=== PATIENT | female | born 1960 | race Caucasian/White ===

== ENCOUNTER 2025-01-17 16:05 | Outpatient (AMB) | payer MEDICARE, MEDICAID, SELFPAY ==
--- NOTE | 2025-01-17 16:16 | A.OFFVIS_ITS ---
Vital Signs 01/17/25 16:18 Height 5 ft 8.5 in Weight 203 lb 4.259 oz BMI 30.5 BP 136/84 Blood Pressure Location Lt brachial Position Sitting Pulse 68 Pulse Source Pulse Oximeter Pulse Oximetry (%) 98 Oxygen Delivery Method Room Air Intake Visit Reasons: Hypothyroidism Intake Note: Patient presents for hypothyroidism today. Continuity Tester Required: No Allergies codeine Allergy (Severe, Verified 01/17/25 16:27) Anaphylaxis metoclopramide (From Reglan) Adverse Reaction (Intermediate, Verified 01/17/25 16:27) Patient's hands stiffing up. Medication List - Last Reconciled 01/17/25 by Vladislav Diane MD acetylglucosamine (bulk) (a-zmctdt-ppedg-d-glucosamine powder) ea miscellaneous atorvastatin (Lipitor) 10 mg PO DAILY cholecalciferol (vitamin D3) 50 mcg PO DAILY escitalopram oxalate 10 mg PO DAILY levothyroxine (Euthyrox) 125 mcg PO DAILY magnesium oxide 400 mg PO DAILY meclizine 25 mg PO DAILY PRN multivitamin 1 tab PO DAILY oxybutynin chloride ER 15 mg PO DAILY propranolol 20 mg PO BID vitamin K2 90 mcg PO DAILY HPI Comments Details: This is a 64 yo female with hx of follicular ca of thyroid s/p thyroidectomy in 1998 and [address] DANIELS [address] Minaya at [facility] . Was on L-T4 from 150 ug to 125ug several yrs ago. Records from Dr. Minaya not available. No palpitations, weight is same. No change in BM. No biotin use. [facility] Medical History (Updated 01/17/25 @ 16:51 by Vladislav Diane MD) Thyroid cancer Abnormal thyroid blood test Surgical History (Updated 01/17/25 @ 16:37 by Audrey Oquendo CMA) H/O hand surgery History of lung surgery H/O hemorrhoidectomy H/O: hysterectomy H/O thyroidectomy Hx of tonsillectomy Social History (Updated 01/17/25 @ 16:31 by Audrey Oquendo CMA) Alcohol intake: former e-Cigarette/Vaping Use: Currently Using Physical Exam Vital Signs: Last Vital Signs Pulse 68 01/17/25 16:18 BP 136/84 01/17/25 16:18 Pulse Ox 98 01/17/25 16:18 Oxygen Delivery Method Room Air 01/17/25 16:18 BMI result Body Mass Index 30.5 HEENT reveals absence of lid lag , stare or proptosis or eyebrow loss. There is a healed scar in the next status post thyroidectomy There is no cervical adenopathy palpated. Lungs CTA. Heart S1, S2 Reg R/R -M/R/G. Abdominal exam benign. Skin exam reveals absence of dryness or thyroid dermopathy or vitiligo. Nail exam reveals absence of thyroid acropachy or oncholysis. Neurologic exam reveals 2+ reflexes . Muscle Strength is 5/5 proximally. There are no tremors in upper extremities. Assessment & Plan Assessment & Plan (1) Abnormal thyroid blood test: Code(s): R79.89 - Other specified abnormal findings of blood chemistry Category: Medical Plan: See assessment and plan below (2) Thyroid cancer: Code(s): C73 - Malignant neoplasm of thyroid gland Category: Medical Plan: This is a 64-year-old female with a reported history of follicular cancer of the thyroid status post total thyroidectomy in 1998 with 2 doses of radioactive iodine by patient's report. Currently being replaced on levothyroxine 125 mcg q.d.. Recent TSH was suppressed. We will recheck TSH, free T4 and free T3 along with thyroglobulin. If thyroglobulin is undetectable and neck ultrasound without abnormal lymph nodes, and TSH suppressed would back off levothyroxine to let TSH rise to mid normal range. We will also have patient see Dr. Massiel [place] convention services director in our practice with expertise in neck ultrasound to better assess lymph nodes. Orders: Orders Triiodothyronine T3 Free Today R79.89 - Other specified abnormal findings of blood chemistry Free T4 (Free Thyroxine) Today R79.89 - Other specified abnormal findings of blood chemistry Thyroid Stimulating Hormone Today R79.89 - Other specified abnormal findings of blood chemistry Thyroglobulin Tumor Marker Today C73 - Malignant neoplasm of thyroid gland Coding Level of Care Code New Pt Level 4 (32640) Diagnoses Abnormal thyroid blood test R79. Thyroid cancer C73
[2025-01-17 16:18] VITALS: BP 136/84; PULSE 68; O2SAT 98; BMI 30.5
--- OUTSIDE RECORDS SUMMARY | 2025-01-17 16:34 | XMS_ITS | Encounter Summary ---
Author Organization [facility], Address [address] [place] [address] Phone Care Team Providers Care Claims Collector Name Role Phone Lora Jacome DO Primary Care Provider [phone] Encounter Details Date Type Department Care Team (Late st Contact Info) Description 08/10/2023 Documentation Only [facility], [address] [place] [id number] [place] [address] [place] [address] Social History Tobacco Use Types Packs/Day Years Used Date Smoking Tobacco: Never Assessed Comments Unknown Sex and Gender Information Value Date Recorded Sex Assigned at Not on file Legal Sex Female 10:09 AM EDT Gender Identity Not on file Sexual Orientation Not on file documented as of this encounter Plan of Treatment Not on file documented as of this encounter Visit Diagnoses Not on filedocumented in this encounter Care Teams Claims Collector Relationship Specialty Start Date End Date Lora Jacome DO [address] [place] [address] PCP - General Family Medicine 08/10/23 09/28/23 documented as of this encounter
--- OUTSIDE RECORDS SUMMARY | 2025-01-17 16:35 | XMS_ITS | Encounter Summary ---
Author Organization [facility] Address [address] [place] [address] Care Team Providers Care Cnc Service Technician Name Role Phone Vladislav Duran MD Primary Care Provider [phone] Celeste Kaur MD Primary Care Provider [phone] Encounter Details Date Type Department Care Team (Late st Contact Info) Description 10/07/2016 Scanned Document [id number] [place] [address] Provider, Generic Social History Tobacco Use Types Packs/Day Years Used Date Smoking Tobacco: Every Day Cigarettes Comments:pt quit x2 weeks ag o - using E-Cigg. - has been instructed to stop prior to surgery Alcohol Use Standard Drinks/Week Comments Yes 0 (1 standard drink = 0.6 oz pur e alcohol) social Comments No Sex and Gender Information Value Date Recorded Sex Assigned at Female 06/14/2024 2:05 PM EST Legal Sex Female 10:40 AM EST Gender Identity Female 06/14/2024 2:05 PM EST Sexual Orientation Choose not to disclose 2024 2:05 PM EST documented as of this encounter Plan of Treatment Upcoming Encounters Date Type Department Care Team (Late st Contact Info) Description 02/15/2025 10:30 AM EDT Office Visit [facility] [address] [place] [phone] Khalida Muller PA-C [address] [place] [address] Kelvin Saab, PT [address] [place] [address] Jenna Jain Au.D [address] [place] [address] documented as of this encounter Procedures Procedure Name Priority Date/Time Associated Diagnosis Comments LAB RESULT 10/07/2016 documented in this encounter Results * LAB RESULT (10/07/2016) Narrative 10/07/2016 Ordered by an unspecified provider. us Generic Provider HX AMB PROCEDURES Edited Result - Final documented in this encounter Visit Diagnoses Not on filedocumented in this encounter Care Teams Cnc Service Technician Relationship Specialty Start Date End Date Vladislav Duran MD [address] [place] [address] [address] [place] [address] PCP - General Internal Medicine 03/30/16 06/18/24 Celeste Kaur MD [address] [place] [address] [address] [place] [address] PCP - General Internal Medicine 06/22/24 documented as of this encounter
--- OUTSIDE RECORDS SUMMARY | 2025-01-17 16:35 | XMS_ITS | Encounter Summary ---
Author Organization [facility] Address [address] [facility] [address] [place] [address] Phone Care Team Providers Care Pharmaceutical Analyst Name Role Phone Irvin Mcfadden MD Unavailable [phone] Adelita Jay [facility] Primary Care Provid er Encounter Details Date Type Department Care Team (Late st Contact Info) Description 04/03/2024 Prep for Surgery [facility] [address] [place] [address] Nannette Romero MD [address] [place] [address] Orthopedics & Sports Medicine, [facility] [place] [address] [email or web address] Social History Tobacco Use Types Packs/Day Years Used Date Smoking Tobacco: Former Cigarettes 0.5 19 - 2018 Passive Smoke Exposure: Past Smokeless Tobacco: Never Comments:Started age 38, carol t age 57. 1/2 PPD on average. Alcohol Use Standard Drinks/Week Comments Never 0 (1 standard drink = 0.6 oz pur e alcohol) Child or Family Care Answer Date Record ed Do you have problems with on e of the following making it difficult for you to work, study, or receive health care? No 12/29/2023 Education Answer Date Recorded Are you interested in help w ith more adult education (for example, completing high school, GED, job training, learning the British language, technical skills, or developing parenting skills)? No 12/29/2023 Are you concerned about learning? Not on file 12/29/2023 No 12/29/2023 Yes 12/29/2023 Food Answer Date Recorded Within the past 6 months we worried whether our food would run out before we got money to buy more. Never True 12/29/2023 Within the past 6 months the food we bought just didn't last and we didn't have enough money to get more. Never True Residential Stability Answer Date Recor ded What is your housing situation today? I have jarvis sing 12/29/2023 How many times have you move d in the past 12 months? Zero (I did not move) 12/29/2023 Paying for Meds Answer Date Recorded Do you have trouble paying for medicines? No 12/29/2023 Paying Utility Bills Answer Date Record ed Do you have trouble paying your heating or elect ricity bill? No 12/29/2023 Transportation Answer Date Recorded Has the lack of transportati on kept you from medical appointments or from getting medications? No 12/29/2023 Digital Access Answer Date Recorded No 12/29/2023 Yes 12/29/2023 Do you have reliable internet access at home? Ye s 12/29/2023 Do you have a device (e.g., phone, tablet, computer) with a working camera? Yes 12/29/2023 Intimate Partner Violence Answer Date R ecorded Are you denied basic needs s uch as food, clothing, or medical care? No 12/29/2023 In the past 12 months have y ou been in a relationship with a person who hurts, threatens, or tries to control you? No 12/29/2023 Are you denied basic needs s uch as food, clothing, or medical care? No 12/29/2023 In the past 12 months have y ou been in a relationship with a person who hurts, threatens, or tries to control you? No 12/29/2023 Comments No Sex and Gender Information Value Date Recorded Sex Assigned at Female 08/07/2023 1:40 PM EDT Legal Sex Female 9:16 AM EDT Gender Identity Female 08/07/2023 1:40 PM EDT Sexual Orientation Straight 08/07/2023 1: 40 PM EDT documented as of this encounter Plan of Treatment Upcoming Encounters Date Type Department Care Team (Late st Contact Info) Description 01/04/2026 8:00 AM EDT Office Visit [facility] [address] [place] [address] Dr [place]ARD [address] Adelita Jay CNP [address] [place] [address], [address] [place] [address] [email or web address] documented as of this encounter Visit Diagnoses Not on filedocumented in this encounter Additional Health Concerns Assessment Noted Time PHQ-9 Depression Total Score: 10 024 8:47 AM EDT PHQ-2 Depression Total Score: 4 12/29/19 24 8:47 AM EDT documented as of this encounter Care Teams Pharmaceutical Analyst Relationship Specialty Start Date End Date Adelita Jay CNP [address] [place], [place] [address], [place] [address] PCP - General Family Medicine 12/29/23 Irvin Mcfadden MD Insurance Assigned Provider Family Medicine 11/25/22 documented as of this encounter Additional Source Comments The information contained in this document represents components of the legal health record. It is not the complete legal health record.[facility]
--- OUTSIDE RECORDS SUMMARY | 2025-01-17 16:35 | XMS_ITS | Encounter Summary ---
Author Organization [facility] Address [address] [place] [address] [place] [address] Phone Care Team Providers Care Associate Product Manager Name Role Phone Lora Jacome DO Primary Care Provider [phone] Irvin Mcfadden MD Unavailable Adelita Jay [facility] Primary Care Provid er Encounter Details Date Type Department Care Team (Late st Contact Info) Description 08/07/2023 Procedure Pass [facility], Ct Scan - [facility] [address] [place] [address] Social History Tobacco Use Types Packs/Day Years Used Date Smoking Tobacco: Former Cigarettes Q uit: 2018 Smokeless Tobacco: Never Alcohol Use Standard Drinks/Week Comments Never 0 (1 standard drink = 0.6 oz pur e alcohol) Education Answer Date Recorded Are you interested in more education? Not on tatyana e 08/14/2022 Are you concerned about learning? Not on file 08/14/2022 No 08/14/2022 No 08/14/2022 Digital Access Answer Date Recorded No 09/14/2022 No 09/14/2022 Reliable internet access at home? Not on file 09/14/2022 Device with a working camera? Not on file Comments No Sex and Gender Information Value Date Recorded Sex Assigned at Female 08/07/2023 1:40 PM EDT Legal Sex Female 9:16 AM EDT Gender Identity Female 08/07/2023 1:40 PM EDT Sexual Orientation Straight 08/07/2023 1: 40 PM EDT documented as of this encounter Functional Status * Calculated C-SSRS Risk Score (Lifetime/Recent) Answer Date of Assessment Author No Risk Indicated 08/07/2023 1:39 PM EDT Crystal Benavides RN * [place] Suicide Severity Rating Scale (Screener/Recent Self-Report) Question Answer Date of Assessment Author 1. Wish to be (Past 1 Month) No 08/07/2023 1:39 PM EDT Ana Cristina Jenkins RN 2. Non-Specific Active Suicidal Thoughts (Past 1 Month) No 08/07/2023 1:39 PM EDT Ana Cristina Jenkins RN 6. Suicidal Behavior (Lifetime) No 08/07/2023 1:39 PM EDT Ana Cristina Jenkins RN documented as of this encounter Plan of Treatment Upcoming Encounters Date Type Department Care Team (Late st Contact Info) Description 01/04/2026 8:00 AM EDT Office Visit [facility] [address] [place] [address] [place] [address] Adelita Jay CNP [address] [place] [address], [address] [place] [address] [email or web address] documented as of this encounter Visit Diagnoses Not on filedocumented in this encounter Care Teams Associate Product Manager Relationship Specialty Start Date End Date Lora Jacome DO [address] [place] [address] mary PCP - General Family Medicine 04/14/22 12/28/23 Adelita Jay CNP [address] [place] [address] PCP - General Family Medicine 12/29/23 Irvin Mcfadden MD [address] [place] [address] [email or web address] Insurance Assigned Provider Family Medicine 11/25/22 documented as of this encounter Additional Source Comments The information contained in this document represents components of the legal health record. It is not the complete legal health record.[facility]
--- OUTSIDE RECORDS SUMMARY | 2025-01-17 16:35 | XMS_ITS | Encounter Summary ---
Author Organization [facility] Address [address] [facility] [address] [place] [address] Phone Care Team Providers Care Power Barker Operator Name Role Phone Irvin Mcfadden MD Unavailable [phone] Adelita Jay FUEL DISTRIBUTION SYSTEM OPERATOR Primary Care Provid er Encounter Details Date Type Department Care Team (Late st Contact Info) Description 12/29/2023 Procedure Pass [facility] [address] [place] [address] Social History Tobacco Use Types Packs/Day Years Used Date Smoking Tobacco: Former Cigarettes 0.5 19 1 - 2018 Passive Smoke Exposure: Past Smokeless [...] high school, GED, job training, learning the Andorran language, technical skills, or developing parenting skills)? [...] your housing situation today? I have jarvis landon 12/29/2023 How many times have you move [...] EDT Office Visit [facility] [address] [place] [address] [place] [address] Adelita Jay, MOLLY [address] [facility], [address] [place] [address] [email or web address] documented as of this encounter Visit Diagnoses Not on filedocumented in this encounter Additional Health Concerns Assessment Noted Time PHQ-9 Depression Total Score: 5 05/11/19 10:52 AM EST PHQ-2 Depression Total Score: 2 05/11/19 10:52 AM EST documented as of this encounter Care Teams Power Barker Operator Relationship Specialty Start Date End Date Adelita Jay CNP [address] [place] [address], [address] [place] [address] [email or web address] PCP - General Family Medicine 12/29/23 Irvin Mcfadden MD Insurance Assigned Provider Family Medicine 11/25/22 documented as of this encounter Additional Source Comments The information contained in this document represents components of the legal health record. It is not the complete legal health record.[facility]
--- OUTSIDE RECORDS SUMMARY | 2025-01-17 16:35 | XMS_ITS | Encounter Summary ---
Author Organization [facility] Address [address] [place] [address] Care Team Providers Care Financial Officer Name Role Phone Celeste Kaur MD Primary Care Provider Encounter Details Date Type Department Care Team (Late st Contact Info) Description 01/15/2025 Refill [facility] [address] [phone] Viji Mancilla APRN [address] [address] New daily persistent headache Social History Tobacco Use Types Packs/Day Years Used Date Smoking Tobacco: Former Cigarettes 0.5 10 1 04/29/2006 - 02/27/2017 Smokeless Tobacco: Never Comments:pt quit x2 weeks ag o - [...] PM EST documented as of this encounter Miscellaneous Notes * Telephone Encounter - Arielle Sosa MA - 01/15/2025 3:38 PM EDT I received a fax from [facility] asking for a refill for Magnesium oxide 400 mg Qty:30 one tab by mouth daily documented in this encounter Plan of Treatment Upcoming Encounters Date Type Department Care Team (Late st Contact Info) Description 02/15/2025 10:30 AM EDT Office Visit [facility] [address] [place] [address] Khalida Muller PAFacundoC [address] [place] [address] Kelvin Saab, PT [address] [place] [address] Jenna Jain Au.D [address] [place] [address] documented as of this encounter Visit Diagnoses Diagnosis New daily persistent headache documented in this encounter Care Teams Financial Officer Relationship Specialty Start Date End Date Celeste Kaur MD [address] [place] [address] Dr [address] [place] [address] PCP - General Internal Medicine 06/22/24 documented as of this encounter
--- OUTSIDE RECORDS SUMMARY | 2025-01-17 16:35 | XMS_ITS | Encounter Summary ---
Author Organization [facility] Address [address] [facility] [address] [place] [address] Phone Care Team Providers Care Service Station Equipment Mechanic Name Role Phone Lora Jacome Opal DO Primary Care Provider [phone] Irvin Mcfadden MD Unavailable Adelita Jay [facility] Primary Care Provid er Encounter Details Date Type Department Care Team (Latest Contact Info) Description 12/13/2023 Transcribe Orders Virtual Department [address] [place] [address] Rogelio Minaya MD [address] [place] [address] [email or web address] Osteopenia, unspecified location (Primary Dx) Social History Tobacco Use Types Packs/Day Years [...] Description 01/04/2026 8:00 AM EDT Office Visit [facility] [address] [place] [address] [place] [address] Adelita Jay CNP [address] [place] [address] [email or web address] documented as of this encounter Visit Diagnoses Diagnosis Osteopenia, unspecified location- Primary documented in this encounter Care Teams Service Station Equipment Mechanic Relationship Specialty Start Date End Date Lora Jacome DO [address] [place] [address] mary PCP - General Family Medicine 04/14/22 12/28/23 Adelita Jay CNP [address] [place] [address] PCP - General Family Medicine 12/29/23 Irvin Mcfadden MD [address] [place] [address] Insurance Assigned Provider Family Medicine 11/25/22 documented as of this encounter Additional Source Comments The information contained in this document represents components of the legal health record. It is not the complete legal health record.[facility]
--- OUTSIDE RECORDS SUMMARY | 2025-01-17 16:35 | XMS_ITS | Encounter Summary ---
Author Organization [facility] Address [address] [place] [address] Care Team Providers Care Combatant Diver Officer Name Role Phone Vladislav Duran MD Primary Care Provider [phone] Celeste Kaur MD Primary Care Provider [phone] Encounter Details Date Type Department Care Team (Late st Contact Info) Description 07/08/2017 Scanned Document [facility] [address] [place] [address] Roni Dugan MD [address] [place] [address] [place] [address] Social History Tobacco Use Types Packs/Day Years [...] EDT [facility] [address] [address] Khalida Muller PA-C [address] [place], [place] [address] Kelvin Saab, PT [address] [place] [address] Jenna Jain Au.D [address] [place], [place] [address] documented as of this encounter Visit Diagnoses Not on filedocumented in this encounter Care Teams Combatant Diver Officer Relationship Specialty Start Date End Date Vladislav Duran MD [address] [place] [address] [address] [place] [address] PCP - General Internal Medicine 03/30/16 06/18/24 Celeste Kaur MD [address] [place] [address] [address] [place] [address] PCP - General Internal Medicine 06/22/24 documented as of this encounter
--- OUTSIDE RECORDS SUMMARY | 2025-01-17 16:35 | XMS_ITS | Encounter Summary ---
Author Organization [facility] Address [address] [facility] [address] [place] [address] Phone Care Team Providers Care Color Specialist Name Role Phone Irvin Mcfadden MD Unavailable [phone] Adelita Jay NEWCOMER HOSTESS Primary Care Provid er Encounter Details Date Type Department Care Team (Late st Contact Info) Description 05/10/2024 Procedure Pass [address] [place] [address] Social History Tobacco Use Types Packs/Day Years [...] high school, GED, job training, learning the Faroese language, technical skills, or developing parenting skills)? [...] EDT Office Visit [facility] [address] [place] [address] [place] [address] Adelita Jay, MOLLY [address] [facility], [address]nd Floor HOWARD [place] [address] [email or web address] documented as of this encounter Visit Diagnoses Not on filedocumented in this encounter Additional Health Concerns Assessment Noted Time PHQ-9 Depression Total Score: 5 05/11/19 10:52 AM EST PHQ-2 Depression Total Score: 2 05/11/19 10:52 AM EST documented as of this encounter Care Teams Color Specialist Relationship Specialty Start Date End Date Adelita Jay CNP [address] [place] [address], [address] [place] [address] [email or web address] PCP - General Family Medicine 12/29/23 Irvin Mcfadden MD Insurance Assigned Provider Family Medicine 11/25/22 documented as of this encounter Additional Source Comments The information contained in this document represents components of the legal health record. It is not the complete legal health record.[facility]
--- OUTSIDE RECORDS SUMMARY | 2025-01-17 16:35 | XMS_ITS | Encounter Summary ---
Author Organization [facility] Address [address] [place] [address] Phone Care Team Providers Care Quirk Sander Name Role Phone Pcp, Unknown Primary Care Provider Carl Hastings MD Primary Care Provider [phone] Lora Jacome DO Primary Care Provider Lora Jacome DO Primary Care Provider [phone] Irvin Mcfadden MD Unavailable Adelita Jay [facility] Primary Care Provid er Encounter Details Date Type Department Care Team (Latest Contact Info) Description 10/24/2019 Transcribe Orders Virtual Department [address] [place] [address] Mary Alexis, PIE MAKER MACHINE 70 [place], [place] [phone] Sore throat (Primary Dx); Glands swollen; Otalgia, unspecified laterality; Diarrhea, unspecified type Social History Tobacco Use Types Packs/Day Years Used Date Smoking Tobacco: Every Day Comments Unknown Sex and Gender Information Value [...] Description 01/04/2026 8:00 AM EDT Office Visit [facility] [address] [place] [address] Adelita Jay, AMF MECHANIC 170 [facility], [address]nd [place] [address] [email or web address] documented as of this encounter Results * COVID-19 PCR Order (10/25/2019 10:30 AM EDT) Specimen Source NASOPHARYNGEAL SWAB (PIE MAKER MACHINE) [facility] COVID-19 Comment SWOLLEN GLANDS, EAR PAIN, DIARRHEA [facility] COVID Testing Status Sent to [facility] Micro Lab [facility] Other 10/25/2019 10:3 0 AM EDT 10/25/2019 12:11 PM EDT us Mary Alexis PIE MAKER MACHINE BODY FLUIDS AND STOOLS ORDERABL ES Final Result Performing Organization Address City/State/[facility] Co de Phone Number [facility] [address] [place] [address] documented in this encounter Visit Diagnoses Diagnosis Sore throat- Primary Acute pharyngitis Glands swollen Enlargement of lymph nodes Otalgia, unspecified laterality Diarrhea, unspecified type documented in this encounter Additional Health Concerns Infection Onset Date Last Indicated Resolved Time CoV-Risk 10/24/2019 10/25/2019 11/07/2019 1:24 AM EDT CoV-Risk 03/29/2020 03/30/2020 04/12/2020 1:24 AM EST documented as of this encounter Care Teams Quirk Sander Relationship Specialty Start Date End Date Pcp, Unknown PCP - General 10/25/19 03/28/20 Carl Jean MD [address] [place] [address] PCP - General Internal Medicine 04/28/21 11/04/21 Lora Jacome DO [address] [place] [address] [email or web address] PCP - General Family Medicine 11/05/21 04/13/22 Lora Jacome DO [address] [place] [address] [email or web address] PCP - General Family Medicine 04/14/22 12/28/23 Adelita Jay CNP [address] [place] [address], [address] [place] [address] [email or web address] PCP - General Family Medicine 12/29/23 Irvin Mcfadden MD [address] [place] [address] [email or web address] Insurance Assigned Provider Family Medicine 11/25/22 documented as of this encounter Additional Source Comments The information contained in this document represents components of the legal health record. It is not the complete legal health record.[facility]
--- OUTSIDE RECORDS SUMMARY | 2025-01-17 16:35 | XMS_ITS | Encounter Summary ---
Author Organization [facility] Address [address] [place] [address] Phone Care Team Providers Care Emanations Analysis Technician Name Role Phone Jacome Lora Opal RECIO Primary Care Provider Irvin Mcfadden MD Unavailable Adelita Jay [facility] Primary Care Provid er Encounter Details Date Type Department Care Team (Late st Contact Info) Description 12/17/2022 Prep for Surgery [facility] Orthopedics & Sports Medicine [address] [place] [address] [phone] Nannette Romero MD [address] [place] [address] Orthopedics & Sports Medicine, [facility] [place], [place] [phone] [email or web address] Social History Tobacco Use Types Packs/Day Years [...] Description 01/04/2026 8:00 AM EDT Office Visit [facility] [address] [place] [address] [place] [address] Adelita Jay CNP [address] [place] [address] documented as of this encounter Visit Diagnoses Not on filedocumented in this encounter Care Teams Emanations Analysis Technician Relationship Specialty Start Date End Date Lora Jacome DO [address] [place] [address] mary PCP - General Family Medicine 04/14/22 12/28/23 Adelita Jay CNP [address] [place] [address] PCP - General Family Medicine 12/29/23 Irvin Mcfadden MD [address] [place] [address] Insurance Assigned Provider Family Medicine 11/25/22 documented as of this encounter Additional Source Comments The information contained in this document represents components of the legal health record. It is not the complete legal health record.[facility]
--- OUTSIDE RECORDS SUMMARY | 2025-01-17 16:35 | XMS_ITS | Encounter Summary ---
Author Organization [facility] Address [address] [place] [address] Care Team Providers Care Journeyman Apprentice Electricians Name Role Phone Vladislav Duran MD Primary Care Provider [phone] Celeste Kaur MD Primary Care Provider [phone] Encounter Details Date Type Department Care Team (Late st Contact Info) Description 07/09/2017 Scanned Document [facility] [address] [place] [phone] Roni Dugan MD [address] [place] [address] [place] [address] Social History Tobacco Use Types Packs/Day Years [...] EDT Office Visit [facility] [address] [place] [phone] Khalida Muller PA-C [address] [place], [place] [phone] Kelvin Saab, PT [address] [place] [address] Jenna Jain Au.D 40 [place], [place] 084[address] documented as of this encounter Visit Diagnoses Not on filedocumented in this encounter Care Teams Journeyman Apprentice Electricians Relationship Specialty Start Date End Date Vladislav Duran MD [address] [place] [address] [address] [place] [address] PCP - General Internal Medicine 03/30/16 06/18/24 Celeste Kaur MD [address] [place] [address] [address] [place] [address] PCP - General Internal Medicine 06/22/24 documented as of this encounter
--- OUTSIDE RECORDS SUMMARY | 2025-01-17 16:35 | XMS_ITS | Encounter Summary ---
Author Organization [facility] Address [address] [place] [address] Care Team Providers Care Manager Stone Name Role Phone Vladislav Duran MD Primary Care Provider [phone] Celeste Kaur MD Primary Care Provider [phone] Encounter Details Date Type Department Care Team (Late st Contact Info) Description 09/08/2017 Scanned Document [facility] [place] [address]9554 [place] [address] Provider, Generic Social History Tobacco Use Types [...] EDT Office Visit [facility] [address] [place] [phone] Khalida Muller PA-C [address] [place] [address] Kelvin Saab, PT [address] [place] [address] Jenna Jain Au.D [address] [place] [address] documented as of this encounter Procedures Procedure Name Priority Date/Time Associated Diagnosis Comments LAB RESULT 09/08/2017 documented in this encounter Results * LAB RESULT (09/08/2017) Narrative 09/08/2017 Ordered by an unspecified provider. us Generic Provider HX AMB PROCEDURES Edited Result - Final documented in this encounter Visit Diagnoses Not on filedocumented in this encounter Care Teams Manager Stone Relationship Specialty Start Date End Date Vladislav Duran MD [address] [facility] [address] [place] [address] PCP - General Internal Medicine 03/30/16 06/18/24 Celeste Kaur MD [address] [place] [address] Dr [address] [place] [address] PCP - General Internal Medicine 06/22/24 documented as of this encounter
--- OUTSIDE RECORDS SUMMARY | 2025-01-17 16:35 | XMS_ITS | Encounter Summary ---
Author Organization [facility] Address [address] [place] [address] Care Team Providers Care Senior Asp Net Developer Name Role Phone Vladislav Duran MD Primary Care Provider [phone] Celeste Kaur MD Primary Care Provider [phone] Encounter Details Date Type Department Care Team (Late st Contact Info) Description 05/24/2017 Scanned Document [facility] 100 [facility] [address] [place] [phone] Alyse Franks, PA-C [address] [place] [address] Social History Tobacco Use Types Packs/Day Years [...] EDT Office Visit [facility] [address] [address] Khalida Muller PA-C [address] [place], [place] 1914[address] Kelvin Saab, PT [address] [place] [address] Jenna Jain Au.D 40 [place], [place] [address] documented as of this encounter Visit Diagnoses Not on filedocumented in this encounter Care Teams Senior Asp Net Developer Relationship Specialty Start Date End Date Vladislav Duran MD [address] [place] [address] [address] [place] [address] PCP - General Internal Medicine 03/30/16 06/18/24 Celeste Kaur MD [address] [place] [address] [address] [place] [address] PCP - General Internal Medicine 06/22/24 documented as of this encounter
--- OUTSIDE RECORDS SUMMARY | 2025-01-17 16:35 | XMS_ITS | Encounter Summary ---
Author Organization [facility] Address [address] [place] [address] Phone Care Team Providers Care Denture Laboratory Technician Name Role Phone Carl Jean MD Primary Care Provider [phone] Lora Jacome DO Primary Care Provider Lora Jacome DO Primary Care Provider Irvin Mcfadden MD Unavailable [phone] Adelita Jay [facility] Primary Care Provid er Encounter Details Date Type Department Care Team (Late st Contact Info) Description 10/02/2021 Prep for Surgery [facility] Orthopedics & Sports Medicine [address] [place] [address] Nannette Romero MD [address] [place] [address] Orthopedics & Sports Medicine, [facility] [place] [address] Social History Tobacco Use Types Packs/Day Years Used Date Smoking Tobacco: Former Cigarettes Q uit: 2018 Smokeless Tobacco: Never Alcohol Use Standard Drinks/Week Comments Yes 0 (1 standard drink = 0.6 oz pur e alcohol) Comments Unknown Sex and Gender Information Value [...] EDT Office Visit [facility] [address] [place] [address] [place] [address] Adelita Jay CNP [address] [place] [address], [address] [place] [address] documented as of this encounter Visit Diagnoses Not on filedocumented in this encounter Care Teams Denture Laboratory Technician Relationship Specialty Start Date End Date Carl Jean MD [address] [place] [address] PCP - General Internal Medicine 04/28/21 11/04/21 Lora Jacome DO [address] [place] [address] mary PCP - General Family Medicine 11/05/21 04/13/22 Lora Jacome DO [address] [place] [address] mary PCP - General Family Medicine 04/14/22 12/28/23 Adelita Jay CNP [address] [place] [address] PCP - General Family Medicine 12/29/23 Irvin Mcfadden MD [address] [place] [address] Insurance Assigned Provider Family Medicine 11/25/22 documented as of this encounter Additional Source Comments The information contained in this document represents components of the legal health record. It is not the complete legal health record.[facility]
--- OUTSIDE RECORDS SUMMARY | 2025-01-17 16:35 | XMS_ITS | Clinical Summary ---
Author Organization [facility] Address [address] [place] [address] Care Team Providers Care Exterior Door Installer Name Role Phone Celeste Kaur MD Primary Care Provider [phone] Allergies Active Allergy Reactions Criticality Noted Date Comments Codeine Anaphylaxis High 03/31/2016 Pt unsure if still allergic Hydrocodone-Acetaminophe n Itching,Rash/Dermatit is High 04/17/2011 Metoclopramide Other (See Comments) Medium 01/11/2015 Lost hand movement Omeprazole Other (See Comments) Medium 07/17/2011 omeprazole Medications atorvastatin (LIPITOR) 40 MG tablet Take 1 tablet (40 mg total) by mouth daily. 6 Active buPROPion (WELLBUTRIN XL) 150 MG 24 hr tablet Take 1 tablet (150 mg total) by mouth every morning. 6 Active Cholecalciferol (VITAMIN D3) 5000 UNITS Cap Take 1,000 Units by mouth daily. Active Multiple Vitamin tablet Take by mouth. Active lisinopril (PRINIVIL,ZeSTRI L) 10 MG tablet Take 1.5 tablets (15 mg total) by mouth daily. 6 Active levothyroxine (SYNTHROID, LEVOTHROID) 150 MCG tablet Take 1 tablet (150 mcg total) by mouth daily on an empty stomach. 6 Active Biotin 3 MG Tab Take 1 tablet by mouth daily. Active darifenacin (ENABLEX) 15 MG 24 hr tablet Take 1 tablet (15 mg total) by mouth daily. Do not chew, crush, or split tablet. Active PANTOprazole (PROTONIX) 40 MG EC tablet 7 Active escitalopram (LEXAPRO) 20 MG tablet Take 0.5 tablets (10 mg total) by mouth daily. 3 7 Active oxyCODONE (ROXICODONE) 5 MG immediate release tabletIndication s:SI (sacroiliac) joint dysfunction Take 1 tablet (5 mg total) by mouth 3 times daily (every 8 hours) as needed for moderate pain. Max Daily Amount: 15 mg 30 tablet 8 Active atorvastatin (LIPITOR) 40 MG tablet Take 1 tablet (40 mg total) by mouth. 4 Active oxybutynin (DITROPAN XL) 15 MG 24 hr tablet Take 1 tablet (15 mg total) by mouth. Active propranolol (INDERAL) 20 MG tablet Take 1 tablet (20 mg total) by mouth 2 times a day. 5 Active magnesium oxide 400 (240 Mg) MG Tab tabletIndication s:New daily persistent headache Take 1 tablet (400 mg total) by mouth daily. 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/19/2024 SI (sacroiliac) joint dysfunction 03/30/2017 Thyroid cancer 03/31/2016 Sacroiliac sprain Encounters Date Type Department Care Team Description 01/15/2025 [facility] [address] [place] [phone] Viji Mancilla APRN New daily persistent headache 01/12/2025 Travel from Last 3 Months Family History Medical History Relation Name Comments POPEYE disease Brother Hypertension Brother Cancer Father Stroke Mother Dementia Sister 1 Hyperlipidemia Sister 2 Relation Name Status Comments Brother Alive Father Mother Sister 1 Sister 2 Alive Social History Tobacco Use Types Packs/Day Years Used Date Smoking Tobacco: Former Cigarettes 0.5 10 1 04/29/2006 - 02/27/2017 Smokeless Tobacco: Never Tobacco Cessation:Counseling Given: Not Answered Comments:pt quit x2 weeks ago - using E-Cigg. - has been instructed [...] not to disclose 2024 2:05 PM EST Last Filed Vital Signs Vital Sign Reading Time Taken Comments Blood Pressure 135/85 06/19/2024 12:15 PM EST Pulse 54 06/19/2024 12:15 PM EST Temperature 36.7 C (98 F) 07/14/2017 10:29 PM EDT Respiratory Rate 18 03/30/2017 1:18 PM EST Oxygen Saturation 93% 03/30/2017 1:18 PM EST Inhaled Oxygen Concentration - - Weight 89.9 kg (198 lb 1.6 oz) 06/19/2024 12:15 PM EST Height 172.7 cm (5' 8 ) 06/19/2024 12:15 PM EST Body Mass Index 30.12 06/19/2024 12:15 PM EST Plan of Treatment Upcoming Encounters Date Type Department Care Team (Late st Contact Info) Description 02/15/2025 10:30 AM EDT Office Visit [facility] [address] [place] [address] Khalida Muller PA-C 40 [place] [address] Kelvin Saab, PT [address] [place] [address] Jenna Jain Au.D [address] [place] [address] Health Maintenance Due Date Last Done Comments Advance Care Planning 1960 Hepatitis C Virus Screening 1958 COVID-19 Vaccine (#1) 1963 DTaP/Tdap/Td Vaccines (1 - Tdap) 1977 Pneumococcal Vaccines 50+ (1 of 2 - PCV) 1977 Zoster (Shingles) Vaccine (1 of 2) 1977 Mammogram 1998 Colonoscopy 2003 RSV Vaccine 60 years and older and Patients (1 - Risk 60-74 years 1-dose series) 2018 DXA Bone Density (Females,Ages 65 and older) 2023 Influenza Vaccine 11/17/2024 01/31/2021, , 02/09/2019, Additional history exists Hepatitis B Vaccines Aged Out No long er eligible based on patient's age to complete this topic Medical Devices Implanted Type Area Sampler First Device Identifier Shelf Expiration Date Model / Serial / Lot System Spinal Fixation 70mm 7mm Ifuse Implant System 3ang - [id number] Implanted:Qty: 1 on 03/30/2017 by Roni Dugna MD at [facility] [employer] 11/16/2018 7070-90 / / System Spinal Fixation 50mm 7mm Ifuse Implant System 3ang - [id number] Implanted:Qty: 1 on 03/30/2017 by Roni Dugan MD at [facility] [employer] [employer] 07/15/2021 [id number] / / System Spinal Fixation 40mm 7mm Ifuse Implant System 3ang - [id number] Implanted:Qty: 1 on 03/30/2017 by Roni Dugan MD at [facility] [employer] 05/01/2021 7040-90 / / [id number] Explanted Type Area Sampler First Device Identifier Shelf Expiration Date Model / Serial / Lot Pin Fixation 3.2mm Guide - [id number] Explanted:Qty: 3 on 03/30/2017 at [facility] [employer] [id number] / / Pin Fixation 3.2mm Blunt - [id number] Explanted:Qty: 1 on 03/30/2017 at [facility] [employer] [id number] / / Pin Fixation 3.2mm Exch - [id number] Explanted:Qty: 1 on 03/30/2017 at [facility] [employer] [id number] / / Insurance MEDICARE PART A & B [facility] [employer] MED[employer] Member Subscriber Plan / Payer (Ef fective 2024-Present) Name:Dior Smith Relation to Subscriber:Self Name:Dior Smith Payer ID:[id number] (NAIC) Type:Not on file Address: [address] [employer] MEDICARE , [address] [place] [address] Advance Directives * Full Code (Latest Code Status on File) Date Activated Date Inactivated Comments 03/30/2017 10:26 AM Care Teams Exterior Door Installer Relationship Specialty Start Date End Date Celeste Kaur MD [address] [place] [address] Dr [address] [place] [address] PCP - General Internal Medicine 06/22/24
--- OUTSIDE RECORDS SUMMARY | 2025-01-17 16:35 | XMS_ITS | Clinical Summary ---
Author Organization [facility] Address [address] [place] [address] Care Team Providers Care Manager Event Name Role Phone Vladislav Duran MD Primary Care Provider [phone] Allergies Active Allergy Reactions Criticality Noted Date Comments Codeine Anaphylaxis High 01/21/2016 Medications Medication Sig Dispensed Refills Start Date End Date Status atorvastatin (LIPITOR) tablet 40 mg Take 40 mg by mouth every night at bedtime. 0 11/18/2015 Active citalopram (CELEXA) 40 MG tablet Take 40 mg by mouth daily. 0 10/14/2015 Active levothyroxine (SYNTHROID, LEVOXY) tablet 175 mcg Take 150 mcg by mouth daily. 0 11/02/2015 Active lisinopril (PRINIVIL,ZESTRIL) tablet 10 mg Take 10 mg by mouth daily. 0 11/02/2015 Active pantoprazole (PROTONIX) 40 MG tablet Take 40 mg by mouth daily. 0 10/18/2015 Active tolterodine (DETROL LA) 4 MG 24 hr capsule Take 4 mg by mouth every night at bedtime. 0 10/17/2015 Active acetaminophen (TYLENOL) 500 MG tablet Take 1,000 mg by mouth every 6 (six) hours as needed. 0 Active diclofenac (VOLTAREN) 75 MG EC tablet Take 75 mg by mouth 2 (two) times a day. 0 Active Multiple Vitamin (MULTI VITAMIN DAILY PO) Take 1 tablet by mouth daily. 0 Active Cholecalciferol (VITAMIN D3) 5000 UNITS CAPS Take 1 capsule by mouth daily. Wednesday thru Wednesday 0 Active Lupton-3 Fatty Acids (FISH OIL PO) Take 1 capsule by mouth daily. 0 Active oxyCODONE-acetaminoph en (PERCOCET) 5-325 MG per tablet Take 1 tablet by mouth every 8 (eight) hours as needed for pain. 20 tablet 0 01/23/2016 Active buPROPion (WELLBUTRIN XL) 150 MG 24 hr tablet Take 150 mg by mouth daily. 0 02/24/2016 Active cyclobenzaprine (FLEXERIL) 10 MG tablet 0 03/13/2016 Active Active Problems No known active problems Family History Medical History Relation Name Comments Cancer Father lung cancer Hyperlipidemia Mother Hypertension Mother Kidney disease Mother Stroke Mother Relation Name Status Comments Father Mother Social History Tobacco Use Types Packs/Day Years Used Date Smoking Tobacco: Every Day Cigarettes 0.5 10 Smokeless Tobacco: Never Alcohol Use Standard Drinks/Week Comments Yes 1 (1 standard drink = 0.6 oz pur e alcohol) socially Sex and Gender Information Value Date Recorded Sex Assigned at Not on file Gender Identity Not on file Sexual Orientation Not on file Last Filed Vital Signs Vital Sign Reading Time Taken Comments Blood Pressure 149/102 03/19/2016 8:10 AM EST Pulse 92 03/19/2016 9:25 AM EST Temperature 36.9 C (98.4 F) 03/19/2016 8:10 AM EST Respiratory Rate 12 03/19/2016 9:25 AM EST Oxygen Saturation 100% 03/19/2016 9:25 AM EST Inhaled Oxygen Concentration - - Weight 97.1 kg (214 lb) 03/19/2016 8:10 AM EST Height 175.3 cm (5' 9 ) 03/19/2016 8:10 AM EST Body Mass Index 31.6 03/19/2016 8:10 AM EST Plan of Treatment Health Maintenance Due Date Last Done Comments Hepatitis C Screening 1960 COVID-19 Vaccine (#1) 1958 Pneumococcal Vaccine (1 of 2 - PCV) 1964 Depression Screening 1970 Preventative Health Evaluation 1976 DTap / Tdap / Td (1 - Tdap) 1977 Colon Cancer Screening (Colonoscopy) 2003 Breast Cancer Screening (Mammogram) 2008 Shingrix-Zoster Vaccine (1 of 2) 2008 Fall Risk Assessment 2023 Osteoporosis Screening (DEXA Scan) 2023 Influenza Vaccine (#1) 2024 RSV Adult > 60+ Yrs or Pregn ant (1 - 1-dose 75+ series) 2033 Hepatitis B Vaccines Aged Out No long er eligible based on patient's age to complete this topic RSV Ped < 20 months Aged Out No longe r eligible based on patient's age to complete this topic Care Teams Manager Event Relationship Specialty Start Date End Date Vladislav Duran MD PCP - General Internal Medicine 01/22/16
--- OUTSIDE RECORDS SUMMARY | 2025-01-17 16:35 | XMS_ITS | Encounter Summary ---
Author Organization [facility] Address [address] [place] [address] [place] [address] Phone Care Team Providers Care Improvement Engineer Name Role Phone Lora Jacome DO Primary Care Provider [phone] Irvin Mcfadden MD Unavailable Adelita Jay [facility] Primary Care Provid er Encounter Details Date Type Department Care Team (Late st Contact Info) Description 01/29/2023 Procedure Pass OR Admitting Dept - Virtual Department [address] [place] [address] Social History Tobacco Use Types Packs/Day Years [...] EDT Office Visit [facility] [address] [place] [address] [place] [address] Adelita Jay CNP [address] [place] [address], [address] [place] [address] documented as of this encounter Visit Diagnoses Not on filedocumented in this encounter Care Teams Improvement Engineer Relationship Specialty Start Date End Date Lora Jacome DO [address] [place] [address] mary PCP - General Family Medicine 04/14/22 12/28/23 Adelita Jay CNP [address] [place] [address] PCP - General Family Medicine 12/29/23 Irvin Mcfadden MD [address] [place] [address] Insurance Assigned Provider Family Medicine 11/25/22 documented as of this encounter Additional Source Comments The information contained in this document represents components of the legal health record. It is not the complete legal health record.[facility]
--- OUTSIDE RECORDS SUMMARY | 2025-01-17 16:35 | XMS_ITS | Encounter Summary ---
Author Organization Located Within [facility] Address [address] [place] [id number] Phone Care Team Providers Care Lifestyle Coordinator Name Role Phone Lora Jacome DO Primary Care Provider [phone] Lora Jacome DO Primary Care Provider [phone] Irvin Mcfadden MD Unavailable [phone] Adelita Jay CNP Primary Care Provid er Encounter Details Date Type Department Care Team (Late st Contact Info) Description 11/19/2021 Procedure Pass OR Admitting Dept - Virtual Department [address] [place] [id number] Social History Tobacco Use Types Packs/Day Years Used Date Smoking Tobacco: Former Cigarettes Q uit: 2018 Smokeless Tobacco: Never Alcohol Use Standard Drinks/Week Comments Never 0 (1 standard drink = 0.6 oz pur e alcohol) Comments No Sex and Gender Information Value [...] EDT Office Visit [facility] [address] [place] [address] [place] [address] Adelita Jay CNP [address] [facility], [address] [place] [phone] [email or web address] documented as of this encounter Visit Diagnoses Not on filedocumented in this encounter Care Teams Lifestyle Coordinator Relationship Specialty Start Date End Date Lora Jacome DO mary PCP - General Family Medicine 11/05/21 04/13/22 Lora Jacome DO [address] [place] [address] mary PCP - General Family Medicine 04/14/22 12/28/23 Adelita Jay CNP 170 [facility], [address] [place] [phone] PCP - General Family Medicine 12/29/23 Irvin Mcfadden MD [address] [place] [phone] [email or web address] Insurance Assigned Provider Family Medicine 11/25/22 documented as of this encounter Additional Source Comments The information contained in this document represents components of the legal health record. It is not the complete legal health record.Located Within [facility]
--- OUTSIDE RECORDS SUMMARY | 2025-01-17 16:35 | XMS_ITS | Clinical Summary ---
Author Organization [facility] Address [address] [place] [address] Care Team Providers Care Lead Advisor Name Role Phone Janis Parr Primary Care Provider [phone] Allergies Active Allergy Reactions Criticality Noted Date Comments Acetaminophen Maculopapular Rash High 04/13/2008 Codeine Anaphylaxis Medium 04/13/2008 CODEINE CAMSYL Hydrocodone-Acetaminophe n Pruritus (itching) High 04/17/2011 Metoclopramide Other High 04/13/2008 METOCLOPRAMIDE RESIN: Intolerance; Imobility of hands Active Problems Problem Noted Date Diagnosed Date High cholesterol 04/25/2013 Thyroid cancer 04/25/2013 Family History Medical History Relation Name Comments Other Mother Macular Edema/C ataracts Relation Name Status Comments Mother Social History Tobacco Use Types Packs/Day Years Used Date Smoking Tobacco: Every Day Cigarettes 0.5 10 Smokeless Tobacco: Never Alcohol Use Standard Drinks/Week Comments Yes 0 (1 standard drink = 0.6 oz pur e alcohol) Social Comments Unknown Sex and Gender Information Value Date Recorded Sex Assigned at Not on file Legal Sex Female 10:25 PM EDT Gender Identity Not on file Sexual Orientation Not on file Plan of Treatment Health Maintenance Due Date Last Done Comments Hepatitis C Screening 1960 DTaP/Tdap/Td (1 - Tdap) 1976 Mammogram/Breast Imaging 1998 Pneumococcal 50+ years (1 of 1 - PCV) 2008 Zoster (Shingrix) (1 of 2) 2008 Bone Density 2023 COVID-19 Vaccine ( - 2023-2 5 season) 2024 Influenza (#1) 2024 RSV (1 - 1-dose 75+ series) 2033 HPV Vaccine (No Doses Required) Completed Hep A Aged Out No longer eligi ble based on patient's age to complete this topic Hep B Aged Out No longer eligi ble based on patient's age to complete this topic Hib Aged Out No longer eligi ble based on patient's age to complete this topic Meningococcal ACWY Aged Out No longer eligible based on patient's age to complete this topic Pap Smear Discontinued Zoster (Zostavax) Discontinued Insurance [facility] HMO/HMO ADVANTAGE [employer] ACCESS Care Teams Lead Advisor Relationship Specialty Start Date End Date Janis Parr [facility] [address] [place] [address] PCP - General 05/29/14
--- OUTSIDE RECORDS SUMMARY | 2025-01-17 16:35 | XMS_ITS | Clinical Summary ---
Author Organization [facility] Address [address] [address] Phone Care Team Providers Care Pond Sawyer Name Role Phone Irvin Mcfadden MD Unavailable Adelita Jung [facility] Primary Care Provid er Allergies Active Allergy Reactions Criticality Noted Date Comments Codeine Anaphylaxis High 09/16/2007 Hydrocodone-Acetaminophen Itching,Rash,Unknown High 04/17/2011 Metoclopramide Myalgia Low 04/13/2008 Omeprazole Paresthesia Medium 07/17/2011 Reglan (Metoclopramide Hcl) Paralysis High 06/16/19 25 Reglan Medications levothyroxine (SYNTHROID, LEVOTHROID) 125 MCG tabletIndications :Postoperative hypothyroidism Take 1 tablet (125 mcg total) by mouth every morning. 90 tablet 3 025 Active magnesium oxide (MAG-OX) 400 mg (241.3 mg elemental) tablet TAKE 1 TABLET BY MOUTH DAILY. TAKE 2 HOURS APART FROM OTHER MEDICATIONS TAKE WITH FOOD 025 Active escitalopram oxalate (LEXAPRO) 10 MG tabletIndications :Generalized anxiety disorder TAKE 1 TABLET BY MOUTH EVERY DAY 90 tablet 1 025 Active oxyBUTYnin (DITROPAN XL) 15 MG 24 hr tablet Take 1 tablet (15 mg total) by mouth every morning. 90 tablet 3 025 Active atorvastatin (LIPITOR) 40 MG tabletIndications :High cholesterol TAKE 1 TABLET BY MOUTH NIGHTLY AT BEDTIME 90 tablet 3 025 Active meclizine (ANTIVERT) 50 MG tabletIndications :Vertigo Take 1 tablet (50 mg total) by mouth 2 (two) times a day as needed for dizziness. 30 tablet 3 025 Active propranoloL (INDERAL) 20 MG immediate release tabletIndications :Benign essential hypertension TAKE 1 TABLET BY MOUTH TWICE A DAY 180 tablet 1 025 Active suvorexant (BELSOMRA) 10 mg tabletIndications :Psychophysiologi xavi insomnia Take 1 tablet (10 mg total) by mouth nightly at bedtime as needed for insomnia. Take within 30 minutes of going to bed. 12 tablet 024 2024 Discontinued(N o longer taking) propranoloL (INDERAL) 20 MG immediate release tabletIndications :Benign essential hypertension TAKE 1 TABLET BY MOUTH TWICE A DAY 180 tablet 1 025 2024 Discontinued darifenacin (ENABLEX) 15 mg 24 hr tablet Take 15 mg by mouth daily. 2024 Discontinued(N o longer taking) meclizine (ANTIVERT) 25 mg tabletIndications :Vertigo Take 1-2 tablets (25-50 mg total) by mouth 3 (three) times a day as needed for dizziness. Do not exceed 4 tabs (100 mg) in 24 hours. 30 tablet 3 025 2024 Discontinued(R eorder) Active Problems Problem Noted Date Diagnosed Date Small vessel disease, cerebrovascular 06/16/2024 Assessment & Plan (07/02/2024 1:55 PM EDT): Recent brain MRI showed signs of chronic small vessel disease, no signs of stroke or mass. This is not likely related to her recent headaches but may affect her cognition or memory [facility] and may suggest a higher risk for TIA/CVA. - Discussed risk reduction strategies including the importance of good BP control, statin tx/cholesterol management and lifestyle modification. - Antithrombotic therapy/daily aspirin should be considered but would hold off for now given current concerns re: retinal microhemorrhages. Benign essential hypertension 06/16/2024 Assessment & Plan (11/19/2024 12:01 PM EDT): Stable, BP near goal <130/80. Continues on low dose propranolol re: headache prophylaxis and anxiety. Additional antihypertensive tx may be considered if SBP remains >130 given cerebral small vessel disease. BP is likely to improve with nicotine cessation. Assessment & Plan (07/02/2024 1:59 PM EDT): She reports a history of HTN, controlled with diet and lifestyle efforts only. BP has been at goal <140/90, generally in the 130's/80's in office and at home. - She will continue monitoring her blood pressure periodically. - More aggressive BP control <130/80 may be considered, given retinal micro-hemorrhages and cerebral small vessel disease. She will follow-up with the retinal specialist as scheduled. - Plan for trial of BB re: headaches, see below. If needed, other blood pressure medication may be considered in the future. Retinal hemorrhage of both eyes 06/16/2024 Assessment & Plan (07/02/2024 2:05 PM EDT): The patient has been diagnosed with retinal microhemorrhages, likely related to small vessel disease, possibly related to BP elevations. - She will follow up with the retinal specialist on 08/04/2024. - The potential impact of her condition on her headaches and the use of aspirin was discussed. - She is advised to avoid aspirin until after her appointment with the retinal specialist. Trigger thumb of right hand 05/24/2024 New daily persistent headache 05/02/2024 Assessment & Plan (11/19/2024 12:05 PM EDT): Headaches are much improved. Continues on propranolol and magnesium supplement recently recommended by neurology. Assessment & Plan (07/02/2024 2:02 PM EDT): The headaches are persistent and may have features similar to migraines, including unilateral distribution, and sensitivity to light and sound. The possibility of a vestibular migraine was also considered. - A prescription for propranolol 20 mg twice daily has been provided to help manage her headaches. She is advised to monitor for dizziness and fatigue, especially when standing up. - She will start the medication today and follow up with the neurologist on Wednesday. Hypothyroidism 12/29/2023 Assessment & Plan (11/19/2024 11:58 AM EDT): S/p total thyroidectomy and DANIELS tx. Takes 125mcg levothyroxine daily, clinically euthyroid. TSH has been WNL, due for annual monitoring. Assessment & Plan (12/29/2023 10:20 AM EDT): S/p total thyroidectomy and DANIELS tx. Takes 125mcg levothyroxine daily, clinically euthyroid. Her last TSH test was about a year ago per her report. Updated lab ordered to assess current levels. Kidney cysts 12/29/2023 Assessment & Plan (12/29/2023 10:23 AM EDT): She has benign kidney cysts on her right kidney. She was seen by nephrology (Dr Rosas) earlier this year and no treatment or follow-up was deemed necessary, specialty note reviewed. Major depressive disorder 12/29/2023 Assessment & Plan (12/29/2023 10:22 AM EDT): Recurrent mild-moderate depression, current sx mild per screening PHQ9 02/12, exacerbated by recent stressors. No safety concerns at present, denies SI/HI. She is advised to consider counseling and has been given resources to find a therapist. Vertigo 12/29/2023 Assessment & Plan (11/19/2024 11:55 AM EDT): Recent episode of BPPV, similar to previous. Continues with meclizine PRN, although not very helpful recently. Continue home exercises and other self care. Assessment & Plan (12/29/2023 10:20 AM EDT): She reports experiencing vertigo, especially during certain exercises. Meclizine has been prescribed as needed. I advised against horseback riding, driving, bathing or swimming alone, or climbing/working at heights or with hazardous materials while symptomatic. Insomnia 12/29/2023 Assessment & Plan (01/07/2024 2:36 PM EDT): She is advised to continue with her current medication. Should the current medication prove ineffective, alternative options can be explored. Assessment & Plan (12/29/2023 10:17 AM EDT): She reports difficulty falling and staying asleep. This is not usually a problem for her so daily medication is not warranted. Belsomra has been prescribed, selected due to her insurance formulary, to be taken 20 to 30 minutes before bedtime. She is advised to ensure a minimum of 7 hours of sleep post-medication and to avoid alcohol consumption. Potential side effects, including abnormal sleep behavior and dreams, have been discussed. If symptoms persist, she should follow up. Osteopenia of left hip 12/29/2023 Assessment & Plan (12/29/2023 10:26 AM EDT): Endorses a history of osteopenia in the left hip, previous DEXA report unavailable. Continues with good dietary intake of calcium and weightbearing activity. Had scheduled an updated scan but did not follow-through, new order placed. Hand eczema 12/29/2023 Assessment & Plan (12/29/2023 10:24 AM EDT): She exhibits symptoms of dyshidrotic eczema on her hands, discussed chronic nature and management.She should avoid potential triggers such as:cold or dry environments, rapid temperature changes, exposure to soaps/detergents/cosmetics/wool or synthetic fibers, dust or smoke, and sweating. Recommend wearing gloves when washing dishes or hands otherwise in water. A prescription for a high-intensity topical steroid cream has been provided, to be used during flare-ups not to exceed 2 weeks of continuous use. She is advised to use regular non-medicated moisturizer for maintenance. Vaginitis, atrophic 03/18/2015 SI (sacroiliac) joint dysfunction 01/11/2015 Overview (12/29/2023): S/p SI fusion on the left. Lumbar degenerative disc disease 01/11/2015 Overview (11/19/2024): Degeneration of intervertebral disc; L3-4 through L5-S1 >>OVERVIEW FOR HERNIATION OF NUCLEUS PULPOSUS WRITTEN ON 03/26/2015 3:35 PM BY NU PANDYA MD Herniation of nucleus pulposus; Central L3-4 protrusion Lumbar spondylosis 01/11/2015 Overview (03/26/2015): Lumbar spondylosis Family history of colonic polyps 03/12/2014 Artificial menopause state 08/07/2009 Overview (12/29/2024): hysterectomy and unilateral ovariectomy 2002 Vitamin D deficiency 06/13/2009 Assessment & Plan (12/29/2023 10:27 AM EDT): Not currently taking a vitamin d supplement, previously taking D3 w/ K2 but she ran out. Check vitamin d level. Vapes nicotine containing substance 01/30/2009 Assessment & Plan (11/19/2024 11:54 AM EDT): Goes through 3 pods/week. Patient is pre-contemplative about vaping cessation. They were made aware of potential health risks associated with nicotine use/vaping as well as options for aiding in nicotine cessation. Will continue to follow up regarding this at subsequent visits. Total of between 3-10 minutes spent on tobacco cessation counseling. Scoliosis 08/27/2008 Anxiety 09/16/2007 Assessment & Plan (11/19/2024 11:57 AM EDT): General anxiety, improved with addition of low dose propranolol 20mg BD. Continue good self-care. Assessment & Plan (12/29/2023 10:18 AM EDT): Recently worse generalized anxiety w/ new onset sleep disruption. GAD7 . Continues on daily escitalopram. Emphasized the importance of cognitive skills and encouraged pt to re-connect with a therapist. Discussed that the best outcomes, with lowest chance of remission occurs with a combination of medication, counseling and good self-care: healthy eating, adequate sleep, avoiding negative psychoactive substances [like alcohol, caffeine] and regular exercise. Gastroesophageal reflux disease 09/16/2007 Chronic interstitial cystitis 09/16/2007 Assessment & Plan (12/29/2023 10:21 AM EDT): She is on oxybutynin for interstitial cystitis and reports it has been effective. She should continue her current medication regimen. Hyperlipidemia 09/16/2007 Assessment & Plan (11/19/2024 12:05 PM EDT): Stable, lipids well controlled on atorvastatin, tolerating well without myalgias. - Monitor lipids. Assessment & Plan (07/02/2024 2:02 PM EDT): Cholesterol levels have significantly improved since restarting atorvastatin, with LDL levels dropping from 218 to 93. - She will continue taking atorvastatin 20 mg nightly indefinitely. - The importance of maintaining a healthy diet and regular exercise was discussed. Assessment & Plan (12/29/2023 10:19 AM EDT): She has run out of atorvastatin and is not currently taking it. A prescription for atorvastatin will be sent to her pharmacy. She did not report any muscle pain or other side effects from the medication. Check lipids. Personal history of malignant neoplasm of thyroi d 09/16/2007 Assessment & Plan (12/29/2023 10:21 AM EDT): She had her thyroid removed in 2001 due to follicular and papillary thyroid cancer and received radioactive iodine treatment. She is currently on levothyroxine 125 mcg daily. A TSH has been ordered to assess current levels. Irritable bowel syndrome 09/16/2007 Arthritis of carpometacarpal (CMC) joint of left thumb Resolved Problems Problem Noted Date Diagnosed Date Resolved Date Cellulitis of right lower leg 12/29/2023 09/06/2024 Assessment & Plan (01/07/2024 2:37 PM EDT): >>ASSESSMENT AND PLAN FOR RASH AND OTHER NONSPECIFIC SKIN ERUPTION WRITTEN ON 12/29/2023 10:25 AM BY ADELITA JUNG CNP RLE rash likely allergic reaction to suspected bug bites. Can not r/o poison barry but it seems less likely. Rash is maculopapular with few nearby hive-like vesicles. Will treat with topical steroid, rx sent for triamcinolone BID. If the rash does not resolve within 2 weeks of using the steroid cream, she should follow up. Assessment & Plan (01/07/2024 2:36 PM EDT): The condition appears to be inflamed and is spreading upwards, causing concern. Sx have worsened, not improving with a topical steroid and now w/ non-blanchable redness on the proximal aspect. Will treat for cellulitis. A prescription for Keflex, to be taken four times daily for 7 to 10 days, will be provided. She is advised to elevate her foot if swelling is present and to monitor for any further spread up the leg. If the condition does not fully resolve within 7 days or if it worsens at any point, she should inform me. Increased frequency of urination 09/16/2007 11/19/2024 Encounters Date Type Department Care Team Description 01/14/[address] [place] [address] Adelita Jung CNP Medication Refill 12/29/2024 8:59 AM EDT - 12/29/2024 11:59 PM EDT Hospital Encounter [facility] [address] [place] [address] [place] [address] Adelita Jung CNP Discharge Disposition: Home or Self Care 12/29/2024 8:00 AM EDT Office Visit [address] [place] [address] Adelita Jung CNP Encounter for health maintenance examination in adult (Primary Dx); Encounter for screening for depression; Vertigo; Osteopenia of left hip; Pure hypercholesterolemi a; Postoperative hypothyroidism; Need for Tdap vaccination; Breast cancer screening by mammogram 11/24/[address] [place] [address] Adelita Jung CNP Medication Refill 10/30/2024 8:50 AM EDT - 10/30/2024 11:59 PM EDT Hospital Encounter [facility] - [address] [place] [address] Adelita Jung CNP Discharge Disposition: Home or Self Care 10/30/2024 Ancillary Orders [facility] [address] [place] [address] Unknown, Wil, 10/30/2024 Ancillary Orders [facility] [address] [place] [address] Unknown, Unknown, 10/30/2024 Ancillary Orders [facility] [address] [place] [address] Unknown, Unknown, 12/29/2023 Procedure Pass [facility] - [address] [place] [address] from Last 3 Months Immunizations Immunization Administration Dates Next Due DTaP 05/06/1993 [id number] FORMULATION 06/13/2009 Influenza Quadrivalent Preservative Free IM 01/17,02/14/2020,02/09/2019 Influenza, Unspecified Formulation 12/29/2012, Td, unspecified formulation 07/17/2011, 5 Tdap 12/29/2024 Family History Medical History Relation Comments Lung cancer Father Lung Cancer, smo ker and solidworks mechanical designer Stroke Mother Cerebrovascular Accident Breast cancer Sister s/p bilat lumpec tomies, chemo, radiation Colon cancer Neg Hx Diabetes mellitus Neg Hx Heart disease Neg Hx Ovarian cancer Neg Hx Relation Status Comments Father Mother Sister Social History Tobacco Use Types Packs/Day Years Used Date Smoking Tobacco: Former Cigarettes 0.5 19 1 999 - 2018 Passive Smoke Exposure: Past Smokeless Tobacco: Never Tobacco Cessation:Counseling Given: Not Answered Comments:Started age 38, quit age 57. 1/2 PPD on average. Alcohol Use Standard Drinks/Week Comments Never 0 (1 standard drink = 0.6 oz pur e alcohol) Child or Family Care Answer Date Record ed Do you have problems with on e of the following making it difficult for you to work, study, or receive health care? No 12/29/2024 Education Answer Date Recorded Are you interested in help w ith more adult education (for example, completing high school, GED, job training, learning the Chinese language, technical skills, or developing parenting skills)? No 12/29/2023 Are you concerned about learning? Not on file 12/29/2023 No 12/29/2023 Yes 12/29/2023 Food Answer Date Recorded Within the past 6 months we worried whether our food would run out before we got money to buy more. Never True 12/29/2024 Within the past 6 months the food we bought just didn't last and we didn't have enough money to get more. Never True Residential Stability Answer Date Recor ded What is your housing situation today? I have jarvis sing 12/29/2024 How many times have you move d in the past 12 months? Zero (I did not move) 12/29/2024 Paying for Meds Answer Date Recorded Do you have trouble paying for medicines? No 12/29/2024 Paying Utility Bills Answer Date Record ed Do you have trouble paying your heating or elect ricity bill? No 12/29/2024 Transportation Answer Date Recorded Has the lack of transportati on kept you from medical appointments or from getting medications? No 12/29/2024 Digital Access Answer Date Recorded No 12/29/2024 Yes 12/29/2024 Do you have reliable internet access at home? Ye s 12/29/2024 Do you have a device (e.g., phone, tablet, computer) with a working camera? Yes 12/29/2024 Intimate Partner Violence Answer Date R ecorded Are you denied basic needs s uch as food, clothing, or medical care? No 12/29/2024 In the past 12 months have y ou been in a relationship with a person who hurts, threatens, or tries to control you? No 12/29/2024 Are you denied basic needs s uch as food, clothing, or medical care? No 12/29/2024 In the past 12 months have y ou been in a relationship with a person who hurts, threatens, or tries to control you? No 12/29/2024 Comments No Sex and Gender Information Value Date Recorded Sex Assigned at Female 08/07/2023 1:40 PM EDT Legal Sex Female 9:16 AM EDT Gender Identity Female 08/07/2023 1:40 PM EDT Sexual Orientation Straight 08/07/2023 1: 40 PM EDT Last Filed Vital Signs Vital Sign Reading Time Taken Comments Blood Pressure 116/84 12/29/2024 8:05 AM EDT Pulse 52 12/29/2024 8:05 AM EDT Temperature 36.7 C (98 F) 09/06/2024 9:37 AM EDT Respiratory Rate 18 05/24/2024 10:20 AM EST Oxygen Saturation 98% 12/29/2024 8:05 AM EDT Inhaled Oxygen Concentration - - Weight 91 kg (200 lb 9.6 oz) 12/29/2024 8:05 AM EDT Height 174 cm (5' 8.5 ) 12/29/2024 8:05 AM EDT Body Mass Index 30.05 12/29/2024 8:05 AM EDT Plan of Treatment Upcoming Encounters Date Type Department Care Team (Late st Contact Info) Description 01/04/2026 8:00 AM EDT Office Visit [facility] [address] [place] [address] Adelita Jung, MOLLY [address] [facility], [address] [place] [address] Health Maintenance Due Date Last Done Comments COLOGUARD 2003 FIT TEST 2003 FOBT 2003 SIGMOIDOSCOPY 2003 VIRTUAL COLONOSCOPY 2003 PNEUMOCOCCAL VACCINES (50+ years) (1 of 1 - PCV) 2008 ZOSTER VACCINES (1 of 2) 2008 COVID-19 VACCINE (4 - season) 2024 04/02/2021, 08/10/2020, 07/19/2020 BLOOD PRESSURE 06/28/2025 12/29/2024 INFLUENZA VACCINE (#1) 2025 , 02/14/2020, 02/09/2019, Additional history exists Postponed from 11/17/2024 (Patient Declines / Guardian Declines) DEPRESSION SCREENING 12/29/2025 12/29/2024, 05/11/19 25 TSH LEVEL 12/29/2025 12/29/2024, 03/0 10/2024, 12/29/2023 FOLLOW UP BONE DENSITY TESTING 02/27/2026 02/28/2024 MAMMOGRAM 10/30/2026 10/30/2024, 01/17, 03/27/2022, Additional history exists SCREENING FOR DIABETES 12/30/2027 12/29/2024, 2022 LIPID PANEL 12/29/2029 12/29/2024, 03/19, 12/29/2023, Additional history exists SMOKING STATUS SCREENING (Every 5 Years) 12/29/2029 12/29/2024 COLONOSCOPY 02/19/2031 02/19/2021 COLORECTAL CANCER SCREENING 02/19/2031 RSV VACCINE (1 - 1-dose 75+ series) 2033 Adult Td,Tdap Booster 12/29/2034 12/29/2024 , 07/17/2011, 05/02/2004 HEPATITIS C SCREENING Completed 12/29/2023, 014 OSTEOPOROSIS SCREENING INITIAL (ONE-TIME) Completed 02/28/2024 HEPATITIS A VACCINES Aged Out No long er eligible based on patient's age to complete this topic HIB VACCINES Aged Out No longer eligi ble based on patient's age to complete this topic MENINGOCOCCAL VACCINES (ACWY) Aged Out No longer eligible based on patient's age to complete this topic MENINGOCOCCAL VACCINES (B) Aged Out N o longer eligible based on patient's age to complete this topic Medical Devices Implanted Type Area Line Supply Device Identifier Shelf Expiration Date Model / Serial / Lot Daniel Daniel Sacrum Description:3 titanium rods si joint reconstruction decompression surgery Rexford Suture Size 0 Needleos2 [id number] Arthroscopy Quick Double Arm Mini - [id number] Implanted:Qty: 1 on 11/19/2021 by Nannette Romero MD at [facility] Right: [id number] 09/16/2025 [id number] / / [id number] Rexford Suture Size 0 Needleos2 [id number] Arthroscopy Quick Double Arm Mini - [id number] Implanted:Qty: 1 on 01/29/2023 by Nannette Romero MD at [facility] Left: [id number] [id number] 11/17/2027 [id number] / / [id number] Procedures Procedure Name Priority Date/Time Associated Diagnosis Comments FREE T4 Routine 12/29/2024 9:01 AM EDT Postoperative hypothyroidism TSH Routine 12/29/2024 9:01 AM EDT Postoperative hypothyroidism LIPID PANEL Routine 12/29/2024 9:01 AM EDT Pure hypercholesterolemia COMPREHENSIVE METABOLIC PANEL Routine 12/29/2024 9:01 AM EDT Pure hypercholesterolemia 25-OH VITAMIN D Routine 12/29/2024 9:01 AM EDT Osteopenia of left hip BI MAMMOGRAM SCREENING WITH TOMOSYNTHESIS WITH CAD (BILATERAL) Routine 10/30/2024 9:23 AM EDT Breast cancer screening by mammogram BD DXA AXIAL (SPINE) WITH HIP Routine 02/28/2024 7:39 AM EST Osteopenia of left hip HEPATITIS C ANTIBODY, QUALITATIVE Routine 12/29/2023 9:39 AM EDT Need for hepatitis C screening test HM COLONOSCOPY FOR RESULT ENTRY ONLY Routine 02/19/2021 from Last 3 Months or Most Recently Relevant to Health Maintenance Results * (ABNORMAL) Comprehensive metabolic panel (12/29/2024 9:01 AM EDT) SODIUM 143 133 - 146 mmol/L [facility] POTASSIUM 5.3(H) 3.3 - 5.1 mmol/L [facility] CHLORIDE 108 96 - 108 mmol/L [facility] CO2 24 21 - 35 mmol/L [facility] BUN 24(H) 6 - 19 mg/dL [facility] CREATININE 0.90 0.5 - 1.5 mg/dL [facility] GLUCOSE 103(H) 70 - 99 mg/dL [facility] ALBUMIN 4.5 3.9 - 4.8 g/dL [facility] TOTAL PROTEIN 7.6 6.5 - 8.0 g/dL [facility] CALCIUM 9.8 8.4 - 10.3 mg/dL [facility] ALKALINE PHOSPHATASE 112 39 - 117 U/L [facility] TOTAL BILIRUBIN 0.7 0.0 - 1.2 mg/dL [facility] AST 21 0 - 37 U/L [facility] ALT 19 0 - 40 U/L [facility] GLOBULIN 3.1 1 - 4.8 g/dL [facility] EGFR 71 >59 mL/min/1.7 3m2 [facility] Comment:Estimated glomerular filtration rate calculated using the CKD-EPI refit equation. ANION GAP 16 10 - 20 mmol/L [facility] Blood 12/29/2024 9:01 AM EDT 12/29/2024 9:07 AM EDT Adelita Wang [facility] LAB BLOOD ORDERABLES Final Result Performing Organization Address City/[facility]/ZIP Co de Phone Number [address] [address] * 25-OH vitamin D (12/29/2024 9:01 AM EDT) 25 OH VIT D (TOTAL) 42 30 - 60 ng/mL [facility] Blood 12/29/2024 9:01 AM EDT 12/29/2024 9:07 AM EDT [facility] LAB BLOOD ORDERABLES Final Result Performing Organization Address [facility]/ZIP Co de Phone Number [address] [address] * (ABNORMAL) TSH (12/29/2024 9:01 AM EDT) TSH 0.25(L) 0.27 - 4.20 uIU/mL [facility] Blood 12/29/2024 9:01 AM EDT 12/29/2024 9:07 AM EDT [facility] LAB BLOOD ORDERABLES Final Result Performing Organization Address City/[facility]/ZIP Co de Phone Number [address] [address] * Free T4 (12/29/2024 9:01 AM EDT) FREE T4 1.5 0.9 - 1.7 ng/dL [facility] Blood 12/29/2024 9:01 AM EDT 12/29/2024 9:07 AM EDT [facility] LAB BLOOD ORDERABLES Final Result Performing Organization Address City/[facility]/ZIP Co de Phone Number [address] [address] * Lipid panel (12/29/2024 9:01 AM EDT) HDL 53 mg/dL [facility] Comment: Interpretation <40 mg/dL: Low HDL cholesterol (major risk factor for CHD) Greater than or equal to 60 mg/dL: High HDL cholesterol ( negative risk factor for CHD) HDL - cholesterol is affected by a number of factors, e.g. smoking, excerise, hormones, sex and age. CHOLESTEROL 175 0 - 240 mg/dL [facility] TRIGLYCERIDES 143 30 - 160 mg/dL [facility] LDL 93 50 - 129 mg/dL [facility] Comment: LDL levels in terms of risk for coronary heart disease: <100 mg/dL: Optimal 100-129 mg/dL: Near or above optimal 130-159 mg/dL: Borderline high 160-189 mg/dL: High >190 mg/dL: Very High CARDIAC RISK RATIO 3.3 3.3 - 4.4 C [facility] Blood 12/29/2024 9:01 AM EDT 12/29/2024 9:07 AM EDT [facility]OD ORDERABLES Final Result [address] [address] * BI MAMMOGRAM SCREENING WITH TOMOSYNTHESIS WITH CAD (BILATERAL) (10/30/2024 9:23 AM EDT) Anatomical Region Laterality Modality Breast Left, Breast Right, Breast Bilateral Bila teral Mammography 10/31/2024 4:17 PM EDT Impressions 10/31/2024 4:19 PM EDT No mammographic evidence of malignancy in either breast. Annual screening mammography is recommended. BI-RADS 1 NEGATIVE The patient will be notified of the results and recommendations. Narrative 10/31/2024 4:19 PM EDT BI MAMMOGRAM SCREENING WITH TOMOSYNTHESIS WITH CAD (BILATERAL) Additional patient information: Screening. COMPARISON: Comparison is made with relevant prior imaging. Breast composition: There are scattered areas of fibroglandular density. FINDINGS: No abnormal masses, suspicious calcifications, or other significant findings are identified mammographically in either breast. Procedure Note Pat Irwin MD - 10/31/2024 BI MAMMOGRAM SCREENING WITH TOMOSYNTHESIS WITH CAD (BILATERAL) Additional patient information: Screening. COMPARISON: Comparison is made with relevant prior imaging. Breast composition: There are scattered areas of fibroglandular density. FINDINGS: No abnormal masses, suspicious calcifications, or other significantfindings are identified mammographically in either breast. IMPRESSION: No mammographic evidence of malignancy in either breast. Annual screening mammography is recommended. BI-RADS 1 NEGATIVE The patient will be notified of the results and recommendations. Adelita Jung CORONER'S JUROR IMG MG EXAMS Ramila l Result * BD DXA AXIAL (SPINE) WITH HIP (02/28/2024 7:39 AM EST) Anatomical Region Laterality Modality Bone Density Bone Density 02/28/2024 7:36 AM EST Impressions 02/28/2024 7:42 AM EST Interpretation: Osteopenia. Narrative 02/28/2024 7:42 AM EST Referred By: ADELITA JUNG Indications: Osteopenia Scanner: Selphee A with serial# of [id number] located at [facility] Bone Density Scan (DXA) 02/28/24 Details of prior DXA scans are available by clicking View Image BMD T- Z- Skeletal Site gm/cm2 score score BMD Change Since Prior Scan ------ ----- ----- PA Spine (L1-L4) 0.992 -0.50 1.30 N/A Total Hip (Left) 0.797 -1.20 0.10 N/A Femoral Neck (Left) 0.657 -1.70 -0.20 N/A Total Hip (Right) 0.820 -1.00 0.30 N/A Femoral Neck (Right) 0.681 -1.50 0.10 N/A ------ ----- ----- * Denotes significant change when >= 0.022 g/cm2 for the spine, 0.027 g/cm2 for the total hip, 0.029 g/cm2 for the femoral neck. Interpretation: Osteopenia. Technical Quality: Imaging of all sites was of adequate quality. FRAX: Based on FRAX(r) 3.6 (U.S[place] White female), this patient's likelihood of hip fracture is 1.1% and major osteoporotic fracture is 9.3% over the next 10 years. The patient reported no risks of fracture. Additional Information: -World Health Organization criteria classify adults based on lowest T-score at PA spine, hip or forearm: Normal (T-score >= -1.0), Osteopenia (T-score between -1 and -2.5), or Osteoporosis (T-score <= -2.5). At [facility], T-scores are compared to peak bone density of a young white gender matched reference population. - For premenopausal women and men under the age of 50, Z-scores (comparison to age, gender, and ethnicity matched reference population) are used: Above expected range for age (Z-score >= 2.0), Within expected range of age (Z-score 1.9 to -1.9), or Below expected range for age (Z-score <= -2.0). - The Bone Health and Osteoporosis Foundation recommends that treatment be considered in men aged more than 50 years and in postmenopausal women with ANY of the following: Prior hip or vertebral fractures; T-score of <= -2.5 at the PA spine or hip; or 10 year fracture probability by FRAX of >= 3% for the hip or >= 20% for major osteoporotic fracture. - The FRAX algorithm (https://www.shania.ac.uk/FRAX/tool.aspx) is designed to predict 10-year fracture risk in treatment-naive adults between the ages of 40 and 90. It is not intended to be used in those receiving pharmacologic osteoporosis treatment. - Including race/ethnicity in the generation of T- or Z-scores or in the FRAX calculation is complicated, and currently undergoing active review to ensure that we can give patients the best information on their risk of fracture. -Some prior studies may not be compatible with our comparison software. -Click on View Full Report to see subsequent pages with images and prior bone density results. Reviewed By: Fred Angelo on 02/28/2024 07:42:32 Procedure Note Fred Angelo MD - 02/28/2024 Referred By: ADELITA JUNG Indications: Osteopenia Scanner: Selphee A with serial# of [id number] located at [facility] Bone Density Scan (DXA) 02/28/24 Details of prior DXA scans are available by clicking View Image BMD T- Z- Skeletal Site gm/cm2 score score BMD Change Since Prior Scan ------ ----- PA Spine (L1-L4) 0.992 -0.50 1.30 N/A Total Hip (Left) 0.797 -1.20 0.10 N/A Femoral Neck (Left) 0.657 -1.70 -0.20 N/A Total Hip (Right) 0.820 -1.00 0.30 N/A Femoral Neck (Right) 0.681 -1.50 0.10 N/A ------ ----- * Denotes significant change when >= 0.022 g/cm2 for the spine, 0.027g/cm2 for the total hip, 0.029 g/cm2 for the femoral neck. Interpretation: Osteopenia. Technical Quality: Imaging of all sites was of adequate quality. FRAX: Based on FRAX(r) 3.6 (U.S. White female), this patient's likelihoodof hip fracture is 1.1% and major osteoporotic fracture is 9.3% over the next 10 years. The patient reported no risks of fracture. Additional Information: -World Health Organization criteria classify adults based on lowestT-score at PA spine, hip or forearm: Normal (T-score >= -1.0), Osteopenia (T-score between -1 and -2.5), or Osteoporosis (T-score <= -2.5). At [facility], T-scores are compared to peak bone density of a young white gender matched reference population. - For premenopausal women and men under the age of 50, Z-scores(comparison to age, gender, and ethnicity matched reference population) are used:Above expected range for age (Z-score >= 2.0), Within expected range of age (Z-score 1.9 to -1.9), or Below expected range for age (Z-score <= -2.0). - The Bone Health and Osteoporosis Foundation recommends that treatment be considered in men aged more than 50 years and in postmenopausal women with ANY of the following: Prior hip or vertebral fractures; T-score of <= -2.5 at the PA spine or hip; or 10 year fracture probability by FRAX of >= 3%for the hip or >= 20% for major osteoporotic fracture. - The FRAX algorithm (https://www.shania.ac.uk/FRAX/tool.aspx) is designed to predict 10-year fracture risk in treatment-naive adultsbetween the ages of 40 and 90. It is not intended to be used in those receiving pharmacologic osteoporosis treatment. - Including race/ethnicity in the generation of T- or Z-scores or in the FRAX calculation is complicated, and currently undergoing active review to ensure that we can give patients the best information on their risk of fracture. -Some prior studies may not be compatible with our comparison software. -Click on View Full Report to see subsequent pages with images and prior bone density results. Reviewed By: Fred Angelo on 02/28/2024 07:42:32 IMPRESSION: Interpretation: Osteopenia. Adelita Jung CNP IMG BD BONE DENSITY DEXA Final Result * Hepatitis C antibody, qualitative (12/29/2023 9:39 AM EDT) HCV NON-REACTIV E NON-REACTI VE [facility] Blood 12/29/2023 9:39 AM EDT 12/29/2023 9:48 AM EDT Adelita Jung CNP LAB BLOOD ORDERABLES Final Result Performing Organization Address City/State/[facility] Co de Phone Number [address] [phone] * COLONOSCOPY FOR RESULT ENTRY ONLY (02/19/2021) Colonoscopy Single benign rectal polyp, 10 yr recall Historical Provider HEALTH MAINTENANCE Final Result from Last 3 Months or Most Recently Relevant to Health Maintenance [place] [address] [place] [address] MEDICARE REPLACEMENT MEDICARE PART A & B [facility] MEDICARE REPLACEMENT MEDICARE PART A & [facility] [place] [address] MEDICARE REPLACEMENT MEDICARE PART A & [facility] [place] [address] MEDICARE PART A & B [facility] MEDICARE REPLACEMENT MEDICARE PART A & B Member Subscriber Plan / Payer (Ef fective 2023-) Name:Dior Smith Member ID:[id number] Relation to Subscriber:Self Name:Dior Smith Subscriber ID:[id number] Payer ID:[id number] Group ID:Not on file Type:Medicare Address: [facility] [employer] [facility] [address] [place] [phone] [facility] MEDICARE REPLACEMENT MEDICARE PART A & B [facility] Advance Directives For more information, please contact: [phone] (9AM - 5PM [place]/[facility], Wednesday-Wednesday) Documents on File Type Date Recorded Patient Snapper On Expl nader Healthcare Proxy 05/25/2024 11:08 AM Care Teams Pond Sawyer Relationship Specialty Start Date End Date Pierre Adelita MOLLY Wang [address] [place] [address], [address] [place] [address] PCP - General Family Medicine 12/29/23 Irvin Mcfadden MD Insurance Assigned Provider Family Medicine 11/25/22 Additional Source Comments The information contained in this document represents components of the legal health record. It is not the complete legal health record.[facility]
--- OUTSIDE RECORDS SUMMARY | 2025-01-17 16:35 | XMS_ITS | Clinical Summary ---
Author Organization [facility] ity Address [address] [place] [address] Care Team Providers Care Auto Overhauler Name Role Phone Vladislav Duran MD Primary Care Provider [phone] Social History Tobacco Use Types Packs/Day Years Used Date Smoking Tobacco: Never Assessed Comments Unknown Sex and Gender Information Value Date Recorded Sex Assigned at Not on file Legal Sex Female 5:22 PM EST Gender Identity Not on file Sexual Orientation Not on file Plan of Treatment Health Maintenance Due Date Last Done Comments Breast Cancer Screening 1960 DTaP,Tdap,and Td Vaccines (1 - Tdap) 1977 Pneumococcal Vaccine: 50+ Ye ars (1 of 1 - PCV) 2008 Zoster Vaccines (1 of 2) 2008 Depression Screening 04/19/2024 COVID-19 Vaccine (1 - 2023-2 5 season) 2024 Influenza Vaccine (#1) 2024 RSV Immunization Adult Patie nts (1 - 1-dose 75+ series) 2033 HIB Vaccines Aged Out No longer eligi ble based on patient's age to complete this topic HPV Vaccines Aged Out No longer eligi ble based on patient's age to complete this topic Hepatitis A Vaccines Aged Out No long er eligible based on patient's age to complete this topic Hepatitis B Vaccines Aged Out No long er eligible based on patient's age to complete this topic IPV Vaccines Aged Out No longer eligi ble based on patient's age to complete this topic MMR Vaccines Aged Out No longer eligi ble based on patient's age to complete this topic Meningococcal ACWY Vaccine Aged Out N o longer eligible based on patient's age to complete this topic Meningococcal B Vaccine Aged Out No l onger eligible based on patient's age to complete this topic RSV Immunization Patients Un baron 20 months Aged Out No longer eligible b ased on patient's age to complete this topic Varicella Vaccines Aged Out No longer eligible based on patient's age to complete this topic Care Teams Auto Overhauler Relationship Specialty Start Date End Date Vladislav Duran MD [address] [place] [address] PCP - General Internal Medicine 01/22/16
--- OUTSIDE RECORDS SUMMARY | 2025-01-17 16:35 | XMS_ITS | Encounter Summary ---
Author Organization [facility] Address [address] [place] [address] Care Team Providers Care Spanish Moss Picker Name Role Phone Celeste Kaur MD Primary Care Provider [phone] Encounter Details Date Type Department Care Team (Latest Contact Info) Description 01/12/2025 Travel Social History Tobacco Use Types Packs/Day Years [...] EDT Office Visit [facility] [address] [place] [phone] Khalida Muller PA-C [address] [place], [place] [address] Kelvin Saab, PT [address] [place] [address] Jenna Jain Au.D [address] [place] [address] documented as of this encounter Visit Diagnoses Not on filedocumented in this encounter Care Teams Spanish Moss Picker Relationship Specialty Start Date End Date Celeste Kaur MD [address] [place] [address] [address] [place] [address] PCP - General Internal Medicine 06/22/24 documented as of this encounter
--- OUTSIDE RECORDS SUMMARY | 2025-01-17 16:35 | XMS_ITS | Encounter Summary ---
Author Organization [facility] Address [address] [facility] [address] [place] [address] Phone Care Team Providers Care Team Assembler Name Role Phone Irvin Mcfadden MD Unavailable [phone] Adelita Jay DRIVER GUARD Primary Care Provid er Reason for Visit * Reason Comments Medication Refill Encounter Details Date Type Department Care Team (Late st Contact Info) Description 01/14/2025 Refill [facility] [address] [place] [address] Adelita Jay, MOLLY [address] [facility], [address] [place] [address] [email or web address] Medication Refill Social History Tobacco Use Types Packs/Day Years [...] high school, GED, job training, learning the Citizen [place] language, technical skills, or developing parenting skills)? [...] PM EDT documented as of this encounter Progress Notes * Rigo Antonio CMA - 01/15/2025 8:15 AM EDT Rx Care Gap Status - Instructions for Clinical Staff (prescriber discretion applies): > Mismatch review guide > N/a - No action needed Visit Info Last visit: 12/29/2024 Adelita Jay CNP - [facility] > Requested f/u: Return in about 1 year (around 12/29/2025) for Annual physical. Upcoming visit: 01/04/2026 Adelita Jay CNP - Family [facility] ACTIONS TAKEN BY Rigo Antonio CMA - Criteria met. AV Lisbeth Blockers Rx Protocol (on HTN Registry) - propranolol HCl Criteria met; renew for up to 12 months. Visit in the past 14 months: Yes Clinical criteria: - BP within last 6 months: 116/84 on 12/29/2024 - Last HR: 52 on 12/29/2024 documented in this encounter Plan of Treatment Upcoming Encounters Date Type Department Care Team (Late st Contact Info) Description 01/04/2026 8:00 AM EDT Office Visit [facility] [address] [place] [address] [place] [address] Adelita Jay CNP [address] [place] [address], [address] [place] [address] [email or web address] documented as of this encounter Visit Diagnoses Diagnosis Benign essential hypertension Essential hypertension, benign documented in this encounter Additional Health Concerns Assessment Noted Time PHQ-9 Depression Total Score: 5 05/11/19 25 10:52 AM EST PHQ-2 Depression Total Score: 0 12/30/19 7:54 AM EDT documented as of this encounter Care Teams Team Assembler Relationship Specialty Start Date End Date Adelita Jay CNP [address] [place] [address], [address] [place] [address] [email or web address] PCP - General Family Medicine 12/29/23 Irvin Mcfadden MD [email or web address] Insurance Assigned Provider Family Medicine 11/25/22 documented as of this encounter Additional Source Comments The information contained in this document represents components of the legal health record. It is not the complete legal health record.[facility]
--- OUTSIDE RECORDS SUMMARY | 2025-01-17 16:35 | XMS_ITS | Encounter Summary ---
Author Organization [facility] Address [address] [facility] [address] [place] [address] Phone Care Team Providers Care Linux Programmer Name Role Phone Irvin Mcfadden MD Unavailable [phone] Adelita Jay [facility] Primary Care Provid er Encounter Details Date Type Department Care Team (Late st Contact Info) Description 05/24/2024 Procedure Pass [place] Admitting Dept - Virtual Department [address] [place] [address] Social History Tobacco Use Types Packs/Day Years [...] high school, GED, job training, learning the Mexican language, technical skills, or developing parenting skills)? [...] as food, clothing, or medical care? No 05/24/2024 In the past 12 months have y ou been in a relationship with a person who hurts, threatens, or tries to control you? No 05/24/2024 Are you denied basic needs s uch as food, clothing, or medical care? No 05/24/2024 In the past 12 months have y ou been in a relationship with a person who hurts, threatens, or tries to control you? No 05/24/2024 Comments No Sex and Gender Information Value [...] EDT Office Visit [facility] [address] [place] [address] [place] [address] Adelita Jay, MOLLY 170 [facility], [address] [place] [address] [email or web address] documented as of this encounter Visit Diagnoses Not on filedocumented in this encounter Additional Health Concerns Assessment Noted Time PHQ-9 Depression Total Score: 5 05/11/19 10:52 AM EST PHQ-2 Depression Total Score: 2 05/11/19 10:52 AM EST documented as of this encounter Care Teams Linux Programmer Relationship Specialty Start Date End Date Adelita Jay CNP [address] [place] [address], [address] [place] [address] [email or web address] PCP - General Family Medicine 12/29/23 Irvin Mcfadden MD Insurance Assigned Provider Family Medicine 11/25/22 documented as of this encounter Additional Source Comments The information contained in this document represents components of the legal health record. It is not the complete legal health record.[facility]
--- OUTSIDE RECORDS SUMMARY | 2025-01-17 16:35 | XMS_ITS | Encounter Summary ---
Author Organization [facility] Address [address] [facility] [address] [place] [address] Phone Care Team Providers Care Checker Dump Grounds Name Role Phone Irvin Mcfadden MD Unavailable [phone] Adelita Jay PERIPHERAL EDP EQUIPMENT OPERATOR Primary Care Provid er Encounter Details Date Type Department Care Team (Late st Contact Info) Description 05/02/2024 Procedure Pass [facility] Scan - [facility] [address] [place] [address] Social History Tobacco Use Types Packs/Day Years [...] high school, GED, job training, learning the Kenyan language, technical skills, or developing parenting skills)? [...] EDT Office Visit [facility] [address] [place] [address] [place] [address] Adelita Jay, MOLLY 170 [facility], [address]nd [place] [address] [email or web address] documented as of this encounter Visit Diagnoses Not on filedocumented in this encounter Additional Health Concerns Assessment Noted Time PHQ-9 Depression Total Score: 10 024 8:47 AM EDT PHQ-2 Depression Total Score: 4 12/29/19 24 8:47 AM EDT documented as of this encounter Care Teams Checker Dump Grounds Relationship Specialty Start Date End Date Adelita Jay CNP [address] [place] [address], [address] [place] [address] [email or web address] PCP - General Family Medicine 12/29/23 Irvin Mcfadden MD Insurance Assigned Provider Family Medicine 11/25/22 documented as of this encounter Additional Source Comments The information contained in this document represents components of the legal health record. It is not the complete legal health record.[facility]
--- OUTSIDE RECORDS SUMMARY | 2025-01-17 16:35 | XMS_ITS | Encounter Summary ---
Author Organization [facility] Address [address] [facility] [address] [place] [address] Phone Care Team Providers Care Merchandise Flow Associate Name Role Phone Lora Jacome Opal DO Primary Care Provider Irvin Mcfadden MD Unavailable Adelita Jay [facility] Primary Care Provid er Encounter Details Date Type Department Care Team (Latest Contact Info) Description 04/20/2023 Transcribe Orders Virtual Department [address] [place] [address] Rogelio Minaya MD [address] [place] [address] [email or web address] Other specified disorders of bone density and structure, unspecified site (Primary Dx) Social History Tobacco Use Types [...] 01/04/2026 8:00 AM EDT Office Visit [facility] [address] [place] [address] [place] [address] Adelita Jay CNP [address] [place] [address] documented as of this encounter Visit Diagnoses Diagnosis Other specified disorders of bone density and structure, unspecified site- Primary documented in this encounter Care Teams Merchandise Flow Associate Relationship Specialty Start Date End Date Lora Jacome DO [address] [place] [address] mary PCP - General Family Medicine 04/14/22 12/28/23 Adelita Jay CNP [address] [place] [address] PCP - General Family Medicine 12/29/23 Irvin Mcfadden MD [address] [place] [address] Insurance Assigned Provider Family Medicine 11/25/22 documented as of this encounter Additional Source Comments The information contained in this document represents components of the legal health record. It is not the complete legal health record.[facility]
--- OUTSIDE RECORDS SUMMARY | 2025-01-17 16:35 | XMS_ITS | Encounter Summary ---
Author Organization [facility] Address [address] [place] [address] Care Team Providers Care Oxyacetylene Cutter Name Role Phone Vladislav Duran MD Primary Care Provider [phone] Celeste Kaur MD Primary Care Provider [phone] Encounter Details Date Type Department Care Team (Late st Contact Info) Description 07/09/2017 Scanned Document [facility] [address] [place] [phone] Roni Dugan MD [address] [place] [address] [place] [address] Social History Tobacco Use Types Packs/Day Years [...] Visit [facility] [address] [place] [phone] Khalida Muller PA-C [address] [place], [place] [address] Kelvin Saab, PT [address] [place] [address] Jenna Jain Au.D [address] [place], [place] [address] documented as of this encounter Visit Diagnoses Not on filedocumented in this encounter Care Teams Oxyacetylene Cutter Relationship Specialty Start Date End Date Vladislav Duran MD [address] [place] [address] [address] [place] [address] PCP - General Internal Medicine 03/30/16 06/18/24 Celeste Kaur MD [address] [place] [address] [address] [place] [address] PCP - General Internal Medicine 06/22/24 documented as of this encounter
--- OUTSIDE RECORDS SUMMARY | 2025-01-17 16:36 | XMS_ITS | Encounter Summary ---
Author Organization [facility] Address [address] [place] [address] Care Team Providers Care Community Product Specialist Name Role Phone Vladislav Duran MD Primary Care Provider [phone] Celeste Kaur MD Primary Care Provider [phone] Encounter Details Date Type Department Care Team (Late st Contact Info) Description 01/22/2015 Scanned Document [facility] HIM 80 [facility] [address] [place] [phone] Provider, Generic Social History Tobacco Use Types [...] EDT Office Visit [facility] [place] 40 [place] [phone] Khalida Muller PA-C 40 [place] [address] Kelvin Saab, PT 80 [place] [address] Jenna Jain Au.D 40 [place] [address] documented as of this encounter Procedures Procedure Name Priority Date/Time Associated Diagnosis Comments PATHOLOGY SURGERY 01/22/2015 documented in this encounter Results * PATHOLOGY SURGERY (01/22/2015) Narrative 01/22/2015 Ordered by an unspecified provider. us Generic Provider [facility] HX PATH PROCEDURES Final Re sult documented in this encounter Visit Diagnoses Not on filedocumented in this encounter Care Teams Community Product Specialist Relationship Specialty Start Date End Date Vladislav Duran MD 580 [facility] [address] [place] [address] PCP - General Internal Medicine 03/30/16 06/18/24 Celeste Kaur MD [address] [place] [address] 1[place] [address] PCP - General Internal Medicine 06/22/24 documented as of this encounter
--- OUTSIDE RECORDS SUMMARY | 2025-01-17 16:36 | XMS_ITS | Encounter Summary ---
Author Organization [facility] Address [address] [place] [address] Care Team Providers Care Navigating Officer Name Role Phone Vladislav Duran MD Primary Care Provider [phone] Celeste Kaur MD Primary Care Provider [phone] Encounter Details Date Type Department Care Team (Late st Contact Info) Description 12/05/2014 Scanned Document [facility] HIM 80 [facility] [address] [place] [address] Provider, Generic Social History Tobacco Use [...] [facility] [place] 40 [place] [address] Khalida Muller PA-C 40 [place] [address] Kelvin Saab, PT 80 [place] [address] Jenna Jain Au.D 40 [place] [address] documented as of this encounter Visit Diagnoses Not on filedocumented in this encounter Care Teams Navigating Officer Relationship Specialty Start Date End Date Vladislav Duran MD 580 [facility] [address] [place] [address] PCP - General Internal Medicine 03/30/16 06/18/24 Celeste Kaur MD [address] [place] [address] 1[place] [address] PCP - General Internal Medicine 06/22/24 documented as of this encounter
--- OUTSIDE RECORDS SUMMARY | 2025-01-17 16:36 | XMS_ITS | Clinical Summary ---
Author Organization [facility], Address [address] [place] [address] Phone Care Team Providers Care Training Program Developer Name Role Phone Unavailable Primary Care Provider Unavailabl e Allergies No known active allergies Medications No known medications Active Problems Problem Noted Date Diagnosed Date Simple renal cyst 09/29/2023 Social History Tobacco Use Types Packs/Day Years Used Date Smoking Tobacco: Never Assessed Comments Unknown Sex and Gender Information Value Date Recorded Sex Assigned at Not on file Legal Sex Female 10:09 AM EDT Gender Identity Not on file Sexual Orientation Not on file Plan of Treatment Health Maintenance Due Date Last Done Comments Breast Cancer Screening 1960 Pneumococcal Vaccine: 50+ Ye ars (1 of 2 - PCV) 1977 Colorectal Cancer Screening: Annual FOBT 2007 Colorectal Cancer Screening: Colonoscopy 2007 Colorectal Cancer Screening: Sigmoidoscopy 2007 Influenza Vaccine (#1) 2024 Hepatitis B Vaccine Aged Out No longe r eligible based on patient's age to complete this topic Insurance [facility] Medicare
--- OUTSIDE RECORDS SUMMARY | 2025-01-17 16:36 | XMS_ITS | Encounter Summary ---
Author Organization [facility] Address [address] [place] [address] Care Team Providers Care Centrifuge Separator Operator Name Role Phone Vladislav Duran MD Primary Care Provider [phone] Celeste Kaur MD Primary Care Provider [phone] Encounter Details Date Type Department Care Team (Late st Contact Info) Description 05/11/2017 Scanned Document [facility] [address] [place] [address] Roni Dugan MD [address] [place] [address] [place] [address] Social History Tobacco Use Types Packs/Day Years [...] EDT Office Visit [facility] [address] [address] Khalida Muller PA-C 40 [place], [place] [address] Kelvin Saab, PT 80 [place] [address] Jenna Jain Au.D 40 [place], [place] [address] documented as of this encounter Visit Diagnoses Not on filedocumented in this encounter Care Teams Centrifuge Separator Operator Relationship Specialty Start Date End Date Vladislav Duran MD [address] [place] [address] [address] [place] [address] PCP - General Internal Medicine 03/30/16 06/18/24 Celeste Kaur MD [address] [place] [address] 1[place] [address] PCP - General Internal Medicine 06/22/24 documented as of this encounter
--- OUTSIDE RECORDS SUMMARY | 2025-01-17 16:36 | XMS_ITS | Encounter Summary ---
Author Organization [facility] Address [address] [place] [address] Care Team Providers Care Residential Solar Consultant Name Role Phone Vladislav Duran MD Primary Care Provider [phone] Celeste Kaur MD Primary Care Provider [phone] Encounter Details Date Type Department Care Team (Late st Contact Info) Description 03/30/2016 Scanned Document [facility] Endocrinology [address] [place] [address] Glenroy Rivera MD [address] [place] [address] Social History Tobacco Use Types Packs/Day Years [...] Visit [facility] [place] 40 [place] [phone] Khalida Muller PA-C 40 [place] [address] Kelvin Saab, PT 80 [place] [address] Jenna Jain Au.D 40 [place] [address] documented as of this encounter Visit Diagnoses Not on filedocumented in this encounter Care Teams Residential Solar Consultant Relationship Specialty Start Date End Date Vladislav Duran MD 580 [facility] [address] [place] [address] PCP - General Internal Medicine 03/30/16 06/18/24 Celeste Kaur MD [address] [place] [address] Dr [address] [address] PCP - General Internal Medicine 06/22/24 documented as of this encounter
== END 2025-01-18 08:49 | disposition home or self-care (01) ==
LOC: HO.ENCR 16:05
PROVIDERS: Visit Provider Internal Medicine Endocrinology, Diabetes & Metabolism
DX: R79.89 Other specified abnormal findings of blood chemistry (principal); C73 Malignant neoplasm of thyroid gland
CPT/HCPCS: 99204

== ENCOUNTER → 2025-01-17 16:05 | Outpatient (BNVA) | payer MEDICARE, OTHER, SELFPAY | PROVIDERS: Visit Provider Internal Medicine Endocrinology, Diabetes & Metabolism | DX: R79.89 Other specified abnormal findings of blood chemistry (principal); Z85.850 Personal history of malignant neoplasm of thyroid; E89.0 Postprocedural hypothyroidism; Z79.890 Hormone replacement therapy | CPT/HCPCS: 99202 ==

== ENCOUNTER 2025-01-23 09:24 | Outpatient (REF) | payer MEDICARE, MEDICAID, SELFPAY ==
--- OUTSIDE RECORDS SUMMARY | 2025-01-23 10:36 | XMS_ITS | Encounter Summary ---
Author Organization [facility] Address [address] [place] [address] Phone Care Team Providers Care Rn Or Lpn Name Role Phone Lora Jacome DO Primary Care Provider [phone] Lora Jacome DO Primary Care Provider [phone] Irvin Mcfadden MD Unavailable [phone] Adelita Jay CNP Primary Care Provid er Encounter Details Date Type Department Care Team (Late st Contact Info) Description 11/19/2021 Procedure Pass OR Admitting Dept - Virtual Department [address] [place] [address] Social History Tobacco Use Types Packs/Day Years [...] EDT Office Visit [facility] [address] [place] [address] [place] [address] Adelita Jay CNP 170 [facility], [address] [place] [address] [email or web address] documented as of this encounter Visit Diagnoses Not on filedocumented in this encounter Care Teams Rn Or Lpn Relationship Specialty Start Date End Date Lora Jacome DO mary PCP - General Family Medicine 11/05/21 04/13/22 Lora Jacome DO 70 [place] [address] mary PCP - General Family Medicine 04/14/22 12/28/23 Adelita Jay CNP 170 [facility], [address] [place] [address] PCP - General Family Medicine 12/29/23 Irvin Mcfadden MD [address] [place] [address] [email or web address] Insurance Assigned Provider Family Medicine 11/25/22 documented as of this encounter Additional Source Comments The information contained in this document represents components of the legal health record. It is not the complete legal health record.[facility]
--- OUTSIDE RECORDS SUMMARY | 2025-01-23 10:36 | XMS_ITS | Clinical Summary ---
Author Organization [facility] Address [address] [place] [address] Care Team Providers Care Barber Tool Sharpener Name Role Phone Celeste Kaur MD Primary Care Provider [phone] Allergies Active Allergy Reactions Criticality Noted Date [...] Date Type Department Care Team Description 01/15/2025 [facility] [address] [place] [phone] Viji Mancilla APRN New daily persistent headache [...] EDT Office Visit [facility] [place] 40 [place] [address] Khalida Muller PA-C 40 [place] [address] Kelvin Saab, PT 80 [place] [address] Jenna Jain Au.D 40 [place] [address] Health Maintenance Due Date Last Done Comments [...] this topic Medical Devices Implanted Type Area Lumber Inspector Device Identifier Shelf Expiration Date Model / Serial / Lot System Spinal Fixation 70mm 7mm Ifuse Implant System 3ang - [id number] Implanted:Qty: 1 on 03/30/2017 by Roni Dugan MD at [facility] [employer] 11/16/2018 7070-90 / / System Spinal Fixation 50mm 7mm Ifuse Implant System 3ang - [id number] Implanted:Qty: 1 on 03/30/2017 by Roni Dugan MD at [facility] [employer] 07/15/2021 7050-90 / / System Spinal Fixation 40mm 7mm Ifuse Implant System 3ang - [id number] Implanted:Qty: 1 on 03/30/2017 by Roni Dugan MD at [facility] [employer] 05/01/2021 7040-90 / / [id number] Explanted Type Area Lumber Inspector Device Identifier Shelf Expiration Date Model / Serial / Lot Pin Fixation 3.2mm Guide - [id number] Explanted:Qty: 3 on 03/30/2017 at [facility] Wire [employer] [id number] / / Pin Fixation 3.2mm Blunt - [id number] Explanted:Qty: 1 on 03/30/2017 at [facility] [employer] [id number] / / Pin Fixation 3.2mm Exch - [id number] Explanted:Qty: 1 on 03/30/2017 at [facility] Wire [employer] [id number] / / Insurance MEDICARE PART A & B [facility] [employer] MED[employer]ARE Member Subscriber Plan / Payer (Ef fective 2024-Present) Name:Dior Smith Relation to Subscriber:Self Name:Dior Smith Payer ID:[id number] (NAIC) Type:Not on file Address: [address] [employer] MEDICARE , [address] [place] [address] Advance Directives * Full Code (Latest Code Status on File) Date Activated Date Inactivated Comments 03/30/2017 10:26 AM Care Teams Barber Tool Sharpener Relationship Specialty Start Date End Date Celeste Kaur MD [address] [place] [address] Dr 1[place] [address] PCP - General Internal Medicine 06/22/24
--- OUTSIDE RECORDS SUMMARY | 2025-01-23 10:36 | XMS_ITS | Encounter Summary ---
Author Organization [facility] Address [address] [place] [address] Care Team Providers Care Crusher Plant Operator Name Role Phone Vladislav Duran MD Primary Care Provider [phone] Celeste Kaur MD Primary Care Provider [phone] Encounter Details Date Type Department Care Team (Late st Contact Info) Description 07/09/2017 Scanned Document [facility] [address] [place] [phone] Roni Dugan MD [address] [place] [address] [place] [address] Social History Tobacco Use Types Packs/Day Years [...] EDT Office Visit [facility] [place] 40 [place] [address] Khalida Muller PA-C 40 [place], [place] [address] Kelvin Saab, PT 80 [place] [address] Jenna Jain Au.D 40 [place], [place] [address] documented as of this encounter Visit Diagnoses Not on filedocumented in this encounter Care Teams Crusher Plant Operator Relationship Specialty Start Date End Date Vladislav Duran MD [address] [place] [address] [address] [place] [address] PCP - General Internal Medicine 03/30/16 06/18/24 Celeste Kaur MD [address] [place] [address] 1[place] [address] PCP - General Internal Medicine 06/22/24 documented as of this encounter
--- OUTSIDE RECORDS SUMMARY | 2025-01-23 10:36 | XMS_ITS | Encounter Summary ---
Author Organization [facility] Address [address] [place] [address] Care Team Providers Care Customer Service Security Officer Name Role Phone Vladislav Duran MD Primary Care Provider [phone] Celeste Kaur MD Primary Care Provider [phone] Encounter Details Date Type Department Care Team (Late st Contact Info) Description 09/08/2017 Scanned Document [facility] Endocrinology [address] [place] [address] Provider, Generic Social History Tobacco Use Types [...] Office Visit [facility] [place] 40 [place] [phone] Khalida Muller PA-C [address] [place] [address] Kelvin Saab, PT 80 [place] [address] Jenna Jain Au.D 40 [place] [address] documented as of this encounter Procedures Procedure Name Priority Date/Time Associated Diagnosis Comments LAB RESULT 09/08/2017 documented in this encounter Results * LAB RESULT (09/08/2017) Narrative 09/08/2017 Ordered by an unspecified provider. us Generic Provider HX AMB PROCEDURES Edited Result - Final documented in this encounter Visit Diagnoses Not on filedocumented in this encounter Care Teams Customer Service Security Officer Relationship Specialty Start Date End Date Vladislav Duran MD 580 [facility] [address] [place] [address] PCP - General Internal Medicine 03/30/16 06/18/24 Celeste Kaur MD [address] [place] [address] Dr [address] [address] PCP - General Internal Medicine 06/22/24 documented as of this encounter
--- OUTSIDE RECORDS SUMMARY | 2025-01-23 10:36 | XMS_ITS | Encounter Summary ---
Author Organization [facility] Address [address] [place] [address] [place] [address] Phone Care Team Providers Care Harm Reduction Worker Name Role Phone Lora Jacome DO Primary Care Provider [phone] Irvin Mcfadden MD Unavailable Adelita Jay [facility] Primary Care Provid er Encounter Details Date Type Department Care Team (Late st Contact Info) Description 08/07/2023 Procedure Pass [facility], Ct Scan - [facility] 30 [place] [address] Social History Tobacco Use Types Packs/Day Years [...] 1:39 PM EDT Crystal Benavides RN * [place] Suicide Severity Rating Scale (Screener/Recent Self-Report) Question [...] Description 01/04/2026 8:00 AM EDT Office Visit [facility] [address] [place] [address] [place] [address] Adelita Jay CNP [address] [place] [address], [address] [place] [address] [email or web address] documented as of this encounter Visit Diagnoses Not on filedocumented in this encounter Care Teams Harm Reduction Worker Relationship Specialty Start Date End Date Lora Jacome DO [address] [place] [address] mary PCP - General Family Medicine 04/14/22 12/28/23 Adelita Jay CNP [address] [place] [address] PCP - General Family Medicine 12/29/23 Irvin Mcfadden MD [address] [place] [address] [email or web address] Insurance Assigned Provider Family Medicine 11/25/22 documented as of this encounter Additional Source Comments The information contained in this document represents components of the legal health record. It is not the complete legal health record.[facility]
--- OUTSIDE RECORDS SUMMARY | 2025-01-23 10:36 | XMS_ITS | Encounter Summary ---
Author Organization [facility] Address [address] [facility] [address] [place] [address] Phone Care Team Providers Care Procedures Analyst Name Role Phone Lora Jacome Opal DO Primary Care Provider Irvin Mcfadden MD Unavailable [phone] Adelita Jay [facility] Primary Care Provid er Encounter Details Date Type Department Care Team (Latest Contact Info) Description 12/13/2023 Transcribe Orders Virtual Department 30 [place] [address] Rogelio Minaya MD 31 [place] [address] [email or web address] Osteopenia, unspecified location (Primary Dx) Social History [...] Description 01/04/2026 8:00 AM EDT Office Visit [facility] [address] [place] [address] [place] [address] Adelita Jay CNP [address] [place] [address] [email or web address] documented as of this encounter Visit Diagnoses Diagnosis Osteopenia, unspecified location- Primary documented in this encounter Care Teams Procedures Analyst Relationship Specialty Start Date End Date Lora Jacome DO 70 [place] [address] mary PCP - General Family Medicine 04/14/22 12/28/23 Adelita Jay CNP [address] [place] [address] PCP - General Family Medicine 12/29/23 Irvin Mcfadden MD [address] [place] [address] Insurance Assigned Provider Family Medicine 11/25/22 documented as of this encounter Additional Source Comments The information contained in this document represents components of the legal health record. It is not the complete legal health record.[facility]
--- OUTSIDE RECORDS SUMMARY | 2025-01-23 10:36 | XMS_ITS | Encounter Summary ---
Author Organization [facility], Address [address] [place] [address] Phone Care Team Providers Care Emergency Department Director Name Role Phone Lora Jacome DO Primary Care Provider [phone] Encounter Details Date Type Department Care Team (Late st Contact Info) Description 08/10/2023 Documentation Only [facility], [address] [place] [phone] [place], [place] [address] [place] [address] Social History Tobacco Use Types [...] on filedocumented in this encounter Care Teams Emergency Department Director Relationship Specialty Start Date End Date Lora Jacome DO 70 [place] [address] PCP - General Family Medicine 08/10/23 09/28/23 documented as of this encounter
--- OUTSIDE RECORDS SUMMARY | 2025-01-23 10:36 | XMS_ITS | Encounter Summary ---
Author Organization [facility] Address [address] [place] [address] Care Team Providers Care Netsuite Developer Name Role Phone Vladislav Duran MD Primary Care Provider [phone] Celeste Kaur MD Primary Care Provider [phone] Encounter Details Date Type Department Care Team (Late st Contact Info) Description 07/09/2017 Scanned Document [facility] [address] [place] [phone] Roni Dugan MD [address] [place] [address] [place] [address] Social History Tobacco Use Types Packs/Day Years [...] Office Visit [facility] [place] 40 [place] [address] Khalida Muller PA-C 40 [place], [place] [address] Kelvin Saab, PT 80 [place] [address] Jenna Jain Au.D 40 [place], [place] [address] documented as of this encounter Visit Diagnoses Not on filedocumented in this encounter Care Teams Netsuite Developer Relationship Specialty Start Date End Date Vladislav Duran MD [address] [place] [address] [address] [place] [address] PCP - General Internal Medicine 03/30/16 06/18/24 Celeste Kaur MD [address] [place] [address] 1st [place] [address] PCP - General Internal Medicine 06/22/24 documented as of this encounter
--- OUTSIDE RECORDS SUMMARY | 2025-01-23 10:36 | XMS_ITS | Encounter Summary ---
Author Organization [facility] Address [address] [facility] [address] [place] [address] Phone Care Team Providers Care Biology Research Assistant Name Role Phone Lora Jacome Opal DO Primary Care Provider [phone] Irvin Mcfadden MD Unavailable [phone] Adelita Jay [facility] Primary Care Provid er Encounter Details Date Type Department Care Team (Latest Contact Info) Description 04/20/2023 Transcribe Orders Virtual Department 30 [place] [address] Rogelio Minaya MD 31 [place] [address] [email or web address] Other specified disorders of bone density and [...] 01/04/2026 8:00 AM EDT Office Visit [facility] [address] [place] [address] [place] [address] Adelita Jay CNP [address] [place] [address] documented as of this encounter Visit Diagnoses Diagnosis Other specified disorders of bone density and structure, unspecified site- Primary documented in this encounter Care Teams Biology Research Assistant Relationship Specialty Start Date End Date Lora Jacome DO 70 [place] [address] mary PCP - General Family Medicine 04/14/22 12/28/23 Adelita Jay CNP [address] [place] [address] PCP - General Family Medicine 12/29/23 Irvin Mcfadden MD 70 [place] [address] Insurance Assigned Provider Family Medicine 11/25/22 documented as of this encounter Additional Source Comments The information contained in this document represents components of the legal health record. It is not the complete legal health record.[facility]
--- OUTSIDE RECORDS SUMMARY | 2025-01-23 10:36 | XMS_ITS | Encounter Summary ---
Author Organization [facility] Address [address] [facility] [address] [place] [address] Phone Care Team Providers Care Funeral Home Location Manager Name Role Phone Irvin Mcfadden MD Unavailable [phone] Adelita Jay [employer] Primary Care Provid er Encounter Details Date Type Department Care Team (Late st Contact Info) Description 05/02/2024 Procedure Pass [facility], Ct Scan - [facility] 30 [place] [address] Social History Tobacco Use Types Packs/Day Years [...] high school, GED, job training, learning the [place] language, technical skills, or developing parenting skills)? [...] EDT Office Visit [facility] [address] [place] [address] [place] [address] Adelita Jay, MOLLY 170 [facility], [address] [place] [address] [email or web address] documented as of this encounter Visit Diagnoses Not on filedocumented in this encounter Additional Health Concerns Assessment Noted Time PHQ-9 Depression Total Score: 10 024 8:47 AM EDT PHQ-2 Depression Total Score: 4 12/29/19 24 8:47 AM EDT documented as of this encounter Care Teams Funeral Home Location Manager Relationship Specialty Start Date End Date Adelita Jay CNP [address] [place] [address], [address] [place] [address] [email or web address] PCP - General Family Medicine 12/29/23 Irvin Mcfadden MD Insurance Assigned Provider Family Medicine 11/25/22 documented as of this encounter Additional Source Comments The information contained in this document represents components of the legal health record. It is not the complete legal health record.[facility]
--- OUTSIDE RECORDS SUMMARY | 2025-01-23 10:36 | XMS_ITS | Encounter Summary ---
Author Organization [facility] Address [address] [place] [address] [place] [address] Phone Care Team Providers Care Treating Inspector Name Role Phone Lora Jacome DO Primary Care Provider [phone] Irvin Mcfadden MD Unavailable [phone] Adelita Jay [facility] Primary Care Provid er Encounter Details Date Type Department Care Team (Late st Contact Info) Description 01/29/2023 Procedure Pass OR Admitting Dept - Virtual Department [address] [place] [address] Social History Tobacco Use Types Packs/Day Years [...] EDT Office Visit [facility] [address] [place] [address] [place] [address] Adelita Jay CNP [address] [place] [address], [address] [place] [address] documented as of this encounter Visit Diagnoses Not on filedocumented in this encounter Care Teams Treating Inspector Relationship Specialty Start Date End Date Lora Jacome DO [address] [place] [address] mary PCP - General Family Medicine 04/14/22 12/28/23 Adelita Jay CNP [address] [place] [address] PCP - General Family Medicine 12/29/23 Irvin Mcfadden MD [address] [place] [address] Insurance Assigned Provider Family Medicine 11/25/22 documented as of this encounter Additional Source Comments The information contained in this document represents components of the legal health record. It is not the complete legal health record.[facility]
--- OUTSIDE RECORDS SUMMARY | 2025-01-23 10:36 | XMS_ITS | Encounter Summary ---
Author Organization [facility] Address [address] [place] [address] Phone Care Team Providers Care Proof Plate Maker Name Role Phone Jacome Lora Opal RECIO Primary Care Provider Irvin Mcfadden MD Unavailable [phone] Adelita Jay [facility] Primary Care Provid er Encounter Details Date Type Department Care Team (Late st Contact Info) Description 12/17/2022 Prep for Surgery [facility] [address] [place] [address] [phone] Nannette Romero MD [address] [place] [address] Orthopedics & Sports Medicine, [facility] [place], [place] [phone] [email or web address] Social History Tobacco Use [...] 01/04/2026 8:00 AM EDT Office Visit [facility] [address] [place] [address] [place] [address] Adelita Jay CNP [address] [place] [address] documented as of this encounter Visit Diagnoses Not on filedocumented in this encounter Care Teams Proof Plate Maker Relationship Specialty Start Date End Date Lora Jacome DO [address] [place] [address] mary PCP - General Family Medicine 04/14/22 12/28/23 Adelita Jay CNP [address] [place] [address] PCP - General Family Medicine 12/29/23 Irvin Mcfadden MD [address] [place] [address] Insurance Assigned Provider Family Medicine 11/25/22 documented as of this encounter Additional Source Comments The information contained in this document represents components of the legal health record. It is not the complete legal health record.[facility]
--- OUTSIDE RECORDS SUMMARY | 2025-01-23 10:36 | XMS_ITS | Encounter Summary ---
Author Organization [facility] Address [address] [place] [address] Care Team Providers Care Control Valve Mechanic Name Role Phone Vladislav Duran MD Primary Care Provider [phone] Celeste Kaur MD Primary Care Provider Encounter Details Date Type Department Care Team (Late st Contact Info) Description 05/24/2017 Scanned Document [facility] [address] [facility] [address] [place] [phone] Alyse Franks, PA-C [address] [place] [address] Social History Tobacco Use Types Packs/Day Years [...] EDT Office Visit [facility] [address] [address] Khalida Muller PA-C [address] [place], [place] [phone] Kelvin Saab, PT [address] [place] [address] Jenna Jain Au.D [address] [place], [place] 494692 documented as of this encounter Visit Diagnoses Not on filedocumented in this encounter Care Teams Control Valve Mechanic Relationship Specialty Start Date End Date Vladislav Duran MD [address] [place] [address] [address] [place] [address] PCP - General Internal Medicine 03/30/16 06/18/24 Celeste Kaur MD [address] [place] [address] [address] [place] [address] PCP - General Internal Medicine 06/22/24 documented as of this encounter
--- OUTSIDE RECORDS SUMMARY | 2025-01-23 10:36 | XMS_ITS | Clinical Summary ---
Author Organization [facility] Address [address] [place] [address] Care Team Providers Care Industrial Boilermaker Name Role Phone Janis Parr Primary Care Provider [phone] Allergies Active Allergy Reactions Criticality Noted Date [...] Bone Density 2023 COVID-19 Vaccine ( - 2024-2 6 season) 2024 Influenza (#1) 2024 RSV (1 [...] Pap Smear Discontinued Zoster (Zostavax) Discontinued Insurance [facility] HMO/HMO ADVANTAGE [employer]YEMED ACCESS Care Teams Industrial Boilermaker Relationship Specialty Start Date End Date Janis Parr [facility] [address] [place] [address] PCP - General 05/29/14
--- OUTSIDE RECORDS SUMMARY | 2025-01-23 10:36 | XMS_ITS ---
Author Name [facility] Organization Unknown Results Test Name/Text Value Interpretation Date Range Source T4 Free SerPl-mCnc 1.4 ng/dL Normal 07/01/2024 0.8 - 1.8 [facility] SS-A Ab Ser IA-aCnc <1.0 NEG Normal 07/01/2024 - [facility] IgA SerPl-mCnc 209.0 mg/dL Normal 07/01/2024 70 - 320 QU EST IgG SerPl-mCnc 1175.0 mg/dL Normal 07/01/2024 600 - 1540 [facility] IgM SerPl-mCnc 151.0 mg/dL Normal 07/01/2024 50 - 300 QU EST JOSE Pat Ser IF-Imp Nuclear, Speckled Abnormal 07/01/2024 [facility] JOSE Ser Ql IF POSITIVE Abnormal 07/01/2024 - [facility] JO[facility] Titr Ser IF 1:160 Above high normal 07/01/2024 [facility] BUN SerPl-mCnc 21.0 mg/dL Normal 07/01/2024 7 - [address] Rheumatoid fact SerPl-aCnc <10 Normal 07/01/2024 - 14 [facility] CRP SerPl-mCnc <3.0 Normal 07/01/2024 - 8 [facility] T Cryoglob Ser Ql NEGATIVE Normal 07/01/[address] C3 SerPl-mCnc 149.0 mg/dL Normal 07/01/2024 83 - [address] C4 SerPl-mCnc 22.0 mg/dL Normal 07/01/2024 15 - 57 [facility] ANCA Ab Ser Ql NEGATIVE Normal 07/01/2024 - [facility] T ESR RBC Qn Westrgrn 6.0 mm/h Normal 07/01/2024 - [facility] SS-B Ab Ser IA-aCnc <1.0 NEG Normal 07/01/2024 - [facility] Alpha1 Glob SerPl Elph-mCnc 0.3 g/dL Normal 07/01/2024 0.2 - 0.3 [facility] Albumin SerPl Elph-mCnc 4.3 g/dL Normal 07/01/2024 3.8 - 4.8 [facility] Beta2 Glob SerPl Elph-mCnc 0.4 g/dL Normal 07/01/2024 0.2 - 0.5 [facility] Beta1 Glob SerPl Elph-mCnc 0.5 g/dL Normal 07/01/2024 0.4 - 0.6 [facility] Alpha2 Glob SerPl Elph-mCnc 0.6 g/dL Normal 07/01/2024 0.5 - 0.9 [facility] Gamma glob SerPl Elph-mCnc 1.0 g/dL Normal 07/01/2024 0.8 - 1.7 [facility] Prot Pattern SerPl Elph-Imp Normal 07/01/2024 [facility] Prot SerPl-mCnc 7.0 g/dL Normal 07/01/2024 6.1 - 8.[address] TSH SerPl-aCnc 0.11 mIU/L Below low normal 07/01/2024 0.4 - 4.5 [facility] eGFRcr SerPlBld CKD-EPI 2020 77.0 mL/min/1.73m2 Normal 07/01/2024 - [facility] Creat SerPl-mCnc 0.84 mg/dL Normal 07/01/2024 0.5 - 1.05 [facility] History of Medication Use Medication Directions Dispensed Refills Start Date End Date Stat gadobutrol (GADAVIST) injection 8 mL 8 mL, Intravenous, Once in imaging, contrast, Starting on Wed08/09/24 at 1729, For 1 dose, Radiology Appointment 08/09/2024 5 completed magnesium oxide 400 (240 Mg) MG Tab tablet Take 1 tablet (400 mg total) by mouth daily. Take 2 hours apart from other medications; take with food 06/19/2024 active propranolol (INDERAL) 20 MG tablet Take 1 tablet (20 mg total) by mouth 2 times a day. 06/16/2024 active oxyCODONE (ROXICODONE) 5 MG immediate release tablet Take 1 tablet (5 mg total) by mouth 3 times daily (every 8 hours) as needed for moderate pain. Max Daily Amount: 15 mg 04/20/2017 active PANTOprazole (PROTONIX) 40 MG EC tablet 02/08/2017 active escitalopram (LEXAPRO) 20 MG tablet Take 10 mg by mouth daily. 01/11/2017 active levothyroxine (SYNTHROID, LEVOTHROID) 150 MCG tablet Take 150 mcg by mouth daily on an empty stomach. 03/21/2016 active buPROPion (WELLBUTRIN XL) 150 MG 24 hr tablet Take 150 mg by mouth every morning. 02/24/2016 active atorvastatin (LIPITOR) 40 MG tablet Take 40 mg by mouth daily. 11/18/2015 active lisinopril (PRINIVIL,ZeSTRIL) 10 MG tablet Take 15 mg by mouth daily. 11/02/2015 active Biotin 3 MG Tab Take 1 tablet by mouth daily. active Cholecalciferol (VITAMIN D3) 5000 UNITS Cap Take 1,000 Units by mouth daily. active darifenacin (ENABLEX) 15 MG 24 hr tablet Take 15 mg by mouth daily. Do not chew, crush, or split tablet. active Multiple Vitamin tablet Take by mouth. active oxybutynin (DITROPAN XL) 15 MG 24 hr tablet Take 1 tablet (15 mg total) by mouth. active Allergies Allergen Reaction Severity Comment Documented Date Source Status CODEINE ANAPHYLAXIS Pt unsure if still allergic 03/31/2016 [facility] active METOCLOPRAMIDE OTHER (SEE COMMENTS) Lost hand movement 01/11/2015 [facility] active OMEPRAZOLE OTHER (SEE COMMENTS) omeprazole 07/17/2011 [facility] active HYDROCODONE-ACETAMI NOPHEN RASH/DERMATITIS 04/17/2011 [facility] active Problems Problem Status Onset Date Problem Type Date of Resoluti on Source Stenosis of intracranial vessel active 2024-06-19 ProblemAct [facility] Thyroid cancer active 2016-03-31 ProblemAct [facility] CT SI (sacroiliac) joint dysfunction active 2017-03-30 ProblemAct [facility] New daily persistent headache active EncounterDiagnosisAct [facility] Sacroiliac sprain active ProblemAct [facility] Encounters Encounter Type Encounter Reason Primary Diagnosis Location Date Ambulatory New daily persistent headache (ndph) New daily persistent headache (ndph) [facility] 08[facility]09[facility]2024 Ambulatory New daily persistent headache (ndph) New daily persistent headache (ndph) [facility] 08/09/2024 Ambulatory New daily persistent headache (ndph) New daily persistent headache (ndph) [facility] 06/19/2024 [email or web address] 06/[facility] 06/08/2024 Care Team Organization Name Specialty Phone Email Start Date End Da te [facility] ALFREDO [facility]O [facility] 08/11/2024 09/10/19 [facility] WALDO MARIN, Primary Care 06/28/2024 09/10/19 [facility] 06/26/2024 [facility] 06/19/2024 [facility] WALDO MARIN, Primary Care 06/14/2024
--- OUTSIDE RECORDS SUMMARY | 2025-01-23 10:36 | XMS_ITS | Encounter Summary ---
Author Organization [facility] Address [address] [place] [address] Phone Care Team Providers Care Director Of Maintenance Name Role Phone Pcp, Unknown Primary Care Provider Carl Hastings MD Primary Care Provider [phone] Lora Jacome DO Primary Care Provider Lora Jacome DO Primary Care Provider Irvin Mcfadden MD Unavailable Adelita Jay [facility] Primary Care Provid er Encounter Details Date Type Department Care Team (Latest Contact Info) Description 10/24/2019 Transcribe Orders Virtual Department [address] [place] [address] Mary Alexis, LONG WALL SHEAR OPERATOR [address] [place], [place] [phone] Sore throat (Primary Dx); Glands swollen; Otalgia, [...] Description 01/04/2026 8:00 AM EDT Office Visit [facility] [address] [place] [address] Adelita Jay, OPERATIONS FORESTER [address] [facility] [place] [place], [address]nd [place] [address] [email or web address] documented as of this encounter Results * COVID-19 PCR Order (10/25/2019 10:30 AM EDT) Specimen Source NASOPHARYNGEAL SWAB (LONG WALL SHEAR OPERATOR) [facility] COVID-19 Comment SWOLLEN GLANDS, EAR PAIN, DIARRHEA [facility] COVID Testing Status Sent to [facility] Other 10/25/2019 10:3 0 AM EDT 10/25/2019 12:11 PM EDT us Mary Alexis LONG WALL SHEAR OPERATOR BODY FLUIDS AND STOOLS ORDERABL ES Final Result Performing Organization Address City/State/[facility] Co de Phone Number [facility] [address] [place] [address] documented in this encounter Visit Diagnoses Diagnosis Sore throat- Primary Acute pharyngitis Glands swollen Enlargement of lymph nodes Otalgia, unspecified laterality Diarrhea, unspecified type documented in this encounter Additional Health Concerns Infection Onset Date Last Indicated Resolved Time CoV-Risk 10/24/2019 10/25/2019 11/07/2019 1:24 AM EDT CoV-Risk 03/29/2020 03/30/2020 04/12/2020 1:24 AM EST documented as of this encounter Care Teams Director Of Maintenance Relationship Specialty Start Date End Date Pcp, Unknown PCP - General 10/25/19 03/28/20 Carl Jean MD [address] [place] [address] PCP - General Internal Medicine 04/28/21 11/04/21 Lora Jacome DO [address] [place] [address] [email or web address] PCP - General Family Medicine 11/05/21 04/13/22 Lora Jacome DO [address] [place] [address] [email or web address] PCP - General Family Medicine 04/14/22 12/28/23 Adelita Jay CNP [address] [place] [address], [address] [place] [address] [email or web address] PCP - General Family Medicine 12/29/23 Irvin Mcfadden MD [address] [place] [address] [email or web address] Insurance Assigned Provider Family Medicine 11/25/22 documented as of this encounter Additional Source Comments The information contained in this document represents components of the legal health record. It is not the complete legal health record.[facility]
--- OUTSIDE RECORDS SUMMARY | 2025-01-23 10:36 | XMS_ITS | Encounter Summary ---
Author Organization [facility] Address [address] [place] [address] Phone Care Team Providers Care Lubrication Worker Name Role Phone Carl Jean MD Primary Care Provider [phone] Lora Jacome DO Primary Care Provider Lora Jacome DO Primary Care Provider Irvin Mcfadden MD Unavailable Adelita Jay [facility] Primary Care Provid er Encounter Details Date Type Department Care Team (Late st Contact Info) Description 10/02/2021 Prep for Surgery [facility] Orthopedics & Sports Medicine [address] [place] [address] Nannette Romero MD [address] [place] [address] Orthopedics & Sports Medicine, [facility] [place] [address] Social History Tobacco Use Types [...] EDT Office Visit [facility] [address] [place] [address] [place] [address] Adelita Jay CNP [address] [place] [address], [address] [place] [address] documented as of this encounter Visit Diagnoses Not on filedocumented in this encounter Care Teams Lubrication Worker Relationship Specialty Start Date End Date Carl Jean MD [address] [place] [address] PCP - General Internal Medicine 04/28/21 11/04/21 Lora Jacome DO [address] [place] [address] mary PCP - General Family Medicine 11/05/21 04/13/22 Lora Jacome DO [address] [place] [address] mary PCP - General Family Medicine 04/14/22 12/28/23 Adelita Jay CNP [address] [place] [address] PCP - General Family Medicine 12/29/23 Irvin Mcfadden MD [address] [place] [address] Insurance Assigned Provider Family Medicine 11/25/22 documented as of this encounter Additional Source Comments The information contained in this document represents components of the legal health record. It is not the complete legal health record.[facility]
--- OUTSIDE RECORDS SUMMARY | 2025-01-23 10:36 | XMS_ITS | Encounter Summary ---
Author Organization [facility] Address [address] [facility] [address] [place] [address] Phone Care Team Providers Care Crusher Assembler Name Role Phone Irvin Mcafdden MD Unavailable [phone] Adelita Jay [facility] Primary Care Provid er Encounter Details Date Type Department Care Team (Late st Contact Info) Description 04/03/2024 Prep for Surgery [facility] Orthopedics & Sports Medicine [address] [place] [address] Nannette Romero MD [address] [place] [address] Orthopedics & Sports Medicine, [facility] [place] [address] [email or web address] [...] high school, GED, job training, learning the Ukrainian language, technical skills, or developing parenting skills)? [...] EDT Office Visit [facility] [address] [place] [address] Dr [place] [address] Adelita Jay CNP [address] [place] [address], [address] [place] [address] [email or web address] documented as of this encounter Visit Diagnoses Not on filedocumented in this encounter Additional Health Concerns Assessment Noted Time PHQ-9 Depression Total Score: 10 024 8:47 AM EDT PHQ-2 Depression Total Score: 4 12/29/19 24 8:47 AM EDT documented as of this encounter Care Teams Crusher Assembler Relationship Specialty Start Date End Date Adelita Jay CNP [address] [place], [place] [address] [address] PCP - General Family Medicine 12/29/23 Irvin Mcfadden MD Insurance Assigned Provider Family Medicine 11/25/22 documented as of this encounter Additional Source Comments The information contained in this document represents components of the legal health record. It is not the complete legal health record.[facility]
--- OUTSIDE RECORDS SUMMARY | 2025-01-23 10:36 | XMS_ITS | Encounter Summary ---
Author Organization [facility] Address [address] [facility] [address] [place] [address] Phone Care Team Providers Care Health Worker Name Role Phone Irvin Mcfadden MD Unavailable [phone] Adelita Jay [employer] Primary Care Provid er Encounter Details Date Type Department Care Team (Late st Contact Info) Description 12/29/2023 Procedure Pass [facility] [address] [place] [address] Social History Tobacco Use Types Packs/Day Years [...] high school, GED, job training, learning the Cambodian language, technical skills, or developing parenting skills)? [...] EDT Office Visit [facility] [address] [place] [address] [place] [address] Adelita Jay, MOLLY 170 [facility], [address] [place] [address] [email or web address] documented as of this encounter Visit Diagnoses Not on filedocumented in this encounter Additional Health Concerns Assessment Noted Time PHQ-9 Depression Total Score: 5 05/11/19 10:52 AM EST PHQ-2 Depression Total Score: 2 05/11/19 10:52 AM EST documented as of this encounter Care Teams Health Worker Relationship Specialty Start Date End Date Adelita Jay CNP [address] [place] [address], [address] [place] [address] [email or web address] PCP - General Family Medicine 12/29/23 Irvin Mcfadden MD Insurance Assigned Provider Family Medicine 11/25/22 documented as of this encounter Additional Source Comments The information contained in this document represents components of the legal health record. It is not the complete legal health record.[facility]
--- OUTSIDE RECORDS SUMMARY | 2025-01-23 10:36 | XMS_ITS | Encounter Summary ---
Author Organization [facility] Address [address] [place] [address] Care Team Providers Care Sales Facilitator Name Role Phone Vladislav Duran MD Primary Care Provider [phone] Celeste Kaur MD Primary Care Provider [phone] Encounter Details Date Type Department Care Team (Late st Contact Info) Description 07/08/2017 Scanned Document [facility] [address] [place] [phone] Roni Dugan MD [address] [place] [address] [place] [address] Social History Tobacco Use Types Packs/Day Years [...] EDT Office Visit [facility] [address] [address] Khalida Muller PA-C [address] [place], [place] 37[address] Kelvin Saab, PT [address] [place] [address] Jenna Jain Au.D [address] [place], [place] [address] documented as of this encounter Visit Diagnoses Not on filedocumented in this encounter Care Teams Sales Facilitator Relationship Specialty Start Date End Date Vladislav Duran MD [address] [place] [address] [address] [place] [address] PCP - General Internal Medicine 03/30/16 06/18/24 Celeste Kaur MD [address] [place] [address] [address] [place] [address] PCP - General Internal Medicine 06/22/24 documented as of this encounter
--- OUTSIDE RECORDS SUMMARY | 2025-01-23 10:36 | XMS_ITS | Clinical Summary ---
Author Organization [facility] Address [address] [address] Phone Care Team Providers Care Word Processor Operator Name Role Phone Irvin Mcfadden MD Unavailable [phone] Adelita Jung [facility] Primary Care [...] but may affect her cognition or memory fpc and may suggest a higher risk for [...] Type Department Care Team Description 01/14/[address] [place] [address] Adelita Jung CNP Medication Refill 12/29/2024 8:59 AM EDT - 12/29/2024 11:59 PM EDT Hospital Encounter [facility] [address] [place] [address] [place] [address] Adelita Jung CNP Discharge Disposition: Home or Self Care 12/29/2024 8:00 AM EDT Office Visit [address] [place] [address] Adelita Jung CNP Encounter for health maintenance examination in adult (Primary Dx); Encounter for screening for depression; Vertigo; Osteopenia of left hip; Pure hypercholesterolemi a; Postoperative hypothyroidism; Need for Tdap vaccination; Breast cancer screening by mammogram 11/24/[address] [place] [address] Adelita Jung CNP Medication Refill 10/30/2024 8:50 AM EDT - 10/30/2024 11:59 PM EDT Hospital Encounter [facility] - [address] [place] [address] Adelita Jung CNP Discharge Disposition: Home or Self Care 10/30/2024 Ancillary Orders [facility]Outside Imaging [address] [place] [address] Unknown, Wil, 10/30/2024 Ancillary Orders [facility] [address] [place] [address] Unknown, Unknown, 10/30/2024 Ancillary Orders [facility] [address] [place] [address] Unknown, Unknown, 12/29/2023 Procedure Pass [facility] - [address] [place] [address] from Last 3 Months Immunizations Immunization Administration Dates Next Due DTaP 05/06/1993 [id number] FORMULATION 06/13/2009 Influenza Quadrivalent Preservative Free IM 01/17,02/14/2020,02/09/2019 Influenza, Unspecified Formulation 12/29/2012, Td, unspecified formulation 07/17/2011, 5 Tdap 12/29/2024 Family History Medical History Relation Comments Lung cancer Father Lung Cancer, smo ker and milking machine mechanic Stroke Mother Cerebrovascular Accident Breast cancer Sister [...] high school, GED, job training, learning the Lithuanian language, technical skills, or developing parenting skills)? [...] EDT Office Visit [facility] [address] [place] [address] Adelita Jung, MOLLY 170 [facility], 2nd [place] [address] [email or web address] Health Maintenance Due Date Last Done Comments [...] this topic Medical Devices Implanted Type Area Electrical Controls Engineer Device Identifier Shelf Expiration Date Model / Serial / Lot Daniel Daniel Sacrum Description:3 titanium rods si joint reconstruction decompression surgery Selmer Suture Size 0 Needleos2 [id number] Arthroscopy Quick Double Arm Mini - [id number] Implanted:Qty: 1 on 11/19/2021 by Nannette Romero MD at [facility] Right: Hand [employer] 09/16/2025 [id number] / / [id number] Selmer Suture Size 0 Needleos2 [id number] Arthroscopy Quick Double Arm Mini - [id number] Implanted:Qty: 1 on 01/29/2023 by Nannette Romero MD at [facility] Left: Thumb [employer] [id number] 11/17/2027 [id number] / / [id number] Procedures Procedure Name Priority Date/Time Associated Diagnosis [...] EDT) SODIUM 143 133 - 146 mmol/L [facility] POTASSIUM 5.3(H) 3.3 - 5.1 mmol/L [facility] CHLORIDE 108 96 - 108 mmol/L [facility] CO2 24 21 - 35 mmol/L [facility] BUN 24(H) 6 - 19 mg/dL [facility] CREATININE 0.90 0.5 - 1.5 mg/dL [facility] GLUCOSE 103(H) 70 - 99 mg/dL [facility] ALBUMIN 4.5 3.9 - 4.8 g/dL [facility] TOTAL PROTEIN 7.6 6.5 - 8.0 g/dL [facility] CALCIUM 9.8 8.4 - 10.3 mg/dL [facility] ALKALINE PHOSPHATASE 112 39 - 117 U/L [facility] TOTAL BILIRUBIN 0.7 0.0 - 1.2 mg/dL [facility] AST 21 0 - 37 U/L [facility] ALT 19 0 - 40 U/L [facility] GLOBULIN 3.1 1 - 4.8 g/dL [facility] EGFR 71 >59 mL/min/1.7 3m2 [facility] Comment:Estimated glomerular filtration rate calculated using the CKD-EPI refit equation. ANION GAP 16 10 - 20 mmol/L [facility] Blood 12/29/2024 9:01 AM EDT 12/29/2024 9:07 AM EDT Adelita Wang [facility] LAB BLOOD ORDERABLES Final Result Performing Organization Address City/[facility]/ZIP Co de Phone Number [address] [address] * 25-OH vitamin D (12/29/2024 9:01 AM EDT) 25 OH VIT D (TOTAL) 42 30 - 60 ng/mL [facility] Blood 12/29/2024 9:01 AM EDT 12/29/2024 9:07 AM EDT [facility] BLOOD ORDERAB[facility] Final Result Performing Organization Address [facility]/ZIP Co de Phone Number [address] [address] * (ABNORMAL) TSH (12/29/2024 9:01 AM EDT) TSH 0.25(L) 0.27 - 4.20 uIU/mL [facility] Blood 12/29/2024 9:01 AM EDT 12/29/2024 9:07 AM EDT [facility] LAB BLOOD ORDERABLES Final Result Performing Organization Address City/[facility]/ZIP Co de Phone Number [address] [address] * Free T4 (12/29/2024 9:01 AM EDT) FREE T4 1.5 0.9 - 1.7 ng/dL [facility] Blood 12/29/2024 9:01 AM EDT 12/29/2024 9:[address] [facility] LAB BLOOD ORDERABLES Final Result Performing Organization Address City/[facility]/ZIP Co de Phone Number [address] [address] * Lipid panel (12/29/2024 9:01 AM EDT) HDL 53 mg/dL [facility] Comment: Interpretation <40 mg/dL: Low HDL cholesterol (major risk factor for CHD) Greater than or equal to 60 mg/dL: High HDL cholesterol ( negative risk factor for CHD) HDL - cholesterol is affected by a number of factors, e.g. smoking, excerise, hormones, sex and age. CHOLESTEROL 175 0 - 240 mg/dL [facility] TRIGLYCERIDES 143 30 - 160 mg/dL [facility] LDL 93 50 - 129 mg/dL [facility] Comment: LDL levels in terms of risk for coronary heart disease: <100 mg/dL: Optimal 100-129 mg/dL: Near or above optimal 130-159 mg/dL: Borderline high 160-189 mg/dL: High >190 mg/dL: Very High CARDIAC RISK RATIO 3.3 3.3 - 4.4 C [facility] Blood 12/29/2024 9:01 AM EDT 12/29/2024 9:07 AM EDT [facility] Final Result [address] [address] * BI MAMMOGRAM SCREENING WITH TOMOSYNTHESIS WITH [...] of the results and recommendations. Adelita Jung SCALLOP DREDGER IMG MG EXAMS Ramila l Result * BD DXA AXIAL (SPINE) WITH HIP (02/28/2024 7:39 AM EST) Anatomical Region Laterality Modality Bone Density Bone Density 02/28/2024 7:36 AM EST Impressions 02/28/2024 7:42 AM EST Interpretation: Osteopenia. Narrative 02/28/2024 7:42 AM EST Referred By: ADELITA JUNG Indications: Osteopenia Scanner: LendingStandard A with serial# of [id number] located at [facility] Bone Density Scan (DXA) 02/28/24 Details [...] -2.5), or Osteoporosis (T-score <= -2.5). At [facility], T-scores are compared to peak bone [...] Referred By: ADELITA JUNG Indications: Osteopenia Scanner: LendingStandard A with serial# of [id number] located at [facility] Bone Density Scan (DXA) 02/28/24 Details [...] -2.5), or Osteoporosis (T-score <= -2.5). At [facility], T-scores are compared to peak bone [...] AM EDT) HCV NON-REACTIV E NON-REACTI VE [facility] Blood 12/29/2023 9:39 AM EDT 12/29/2023 9:48 AM EDT Adelita Jung CNP LAB BLOOD ORDERABLES Final Result Performing Organization Address City/State/[facility] Co de Phone Number [address] [phone] * COLONOSCOPY FOR RESULT ENTRY ONLY (02/19/2021) Colonoscopy Single benign rectal polyp, 10 yr recall Historical Provider HEALTH MAINTENANCE Final Result from Last 3 Months or Most Recently Relevant to Health Maintenance [place] [address] [place] [address] MEDICARE REPLACEMENT MEDICARE PART A & B [facility] MEDICARE REPLACEMENT MEDICARE PART A & [facility] [place] [address] [address] MEDICARE REPLACEMENT MEDICARE PART A & [facility] MEDIC[facility] REPLACEMENT MEDICARE PART A & B Member Subscriber Plan / Payer (Ef fective 2023-Present) Name:KamleshyonySusannahsa Member ID:[id number] Relation to Subscriber:Self Name:Dior Smith Subscriber ID:[id number] Payer ID:[id number] Group ID:Not on file Type:Medicare Address: [facility] Intelligent Mobile Support [facility] [employer] [facility] [address] [place] [address] [facility] MEDICARE REPLACEMENT MEDICARE PART A & B Member Subscriber Plan / Payer (Ef fective 2023-) Name:Dior Smith Member ID:[id number] Relation to Subscriber:Self Name:Dior Smith Subscriber ID:[id number] Payer ID:[id number] Group ID:Not on file Type:Medicare Address: [facility] Intelligent Mobile Support [facility] [employer] [facility] [address] [place] [phone] [facility] MEDICARE REPLACEMENT MEDICARE PART A & B [facility] Advance Directives For more information, please contact: [phone] (9AM - 5PM [place], Wednesday-Wednesday) Documents on File Type Date Recorded Patient Aviation Tactical Readiness Officer Expl nader Healthcare Proxy 05/25/2024 11:08 AM Care Teams Word Processor Operator Relationship Specialty Start Date End Date Pierre Adelita MOLLY Wang [address] [place] [address], 2nd [place] [address] PCP - General Family Medicine 12/29/23 Irvin Mcfadden MD Insurance Assigned Provider Family Medicine 11/25/22 Additional Source Comments The information contained in this document represents components of the legal health record. It is not the complete legal health record.[facility]
--- OUTSIDE RECORDS SUMMARY | 2025-01-23 10:37 | XMS_ITS | Encounter Summary ---
Author Organization [facility] Address [address] [facility] [address] [place] [address] Phone Care Team Providers Care Supervisor Payroll Name Role Phone Irvin Mcfadden MD Unavailable [phone] Adelita Jay [facility] Primary Care Provid er Encounter Details Date Type Department Care Team (Late st Contact Info) Description 05/24/2024 Procedure Pass OR Admitting Dept - Virtual Department [address] [place] [address] Social History Tobacco Use Types Packs/Day Years [...] high school, GED, job training, learning the Trinidadian language, technical skills, or developing parenting skills)? [...] EDT Office Visit [facility] [address] [place] [address] [place] [address] Adelita Jay, MOLLY 170 [facility], 2nd Floor [place] [address] [email or web address] documented as of this encounter Visit Diagnoses Not on filedocumented in this encounter Additional Health Concerns Assessment Noted Time PHQ-9 Depression Total Score: 5 05/11/19 10:52 AM EST PHQ-2 Depression Total Score: 2 05/11/19 10:52 AM EST documented as of this encounter Care Teams Supervisor Payroll Relationship Specialty Start Date End Date Adelita Jay CNP [address] [place] [address], [address] [place] [address] [email or web address] PCP - General Family Medicine 12/29/23 Irvin Mcfadden MD Insurance Assigned Provider Family Medicine 11/25/22 documented as of this encounter Additional Source Comments The information contained in this document represents components of the legal health record. It is not the complete legal health record.[facility]
--- OUTSIDE RECORDS SUMMARY | 2025-01-23 10:37 | XMS_ITS | Encounter Summary ---
Author Organization [facility] Address [address] [place] [address] Care Team Providers Care Rehab Services Aide Name Role Phone Vladislav Duran MD Primary Care Provider [phone] Celeste Kaur MD Primary Care Provider [phone] Encounter Details Date Type Department Care Team (Late st Contact Info) Description 01/22/2015 Scanned Document [facility] HIM 80 [facility] [address] [place] [address] Provider, Generic Social History Tobacco Use [...] EDT Office Visit [facility] [address] [place] [phone] Khalida Muller PA-C 40 [place] [address] Kelvin Saab, PT 80 [place] [address] Jenna Jain Au.D 40 [place] [address] documented as of this encounter Procedures Procedure Name Priority Date/Time Associated Diagnosis Comments PATHOLOGY SURGERY 01/22/2015 documented in this encounter Results * PATHOLOGY SURGERY (01/22/2015) Narrative 01/22/2015 Ordered by an unspecified provider. us Generic Provider [facility] HX PATH PROCEDURES Final Re sult documented in this encounter Visit Diagnoses Not on filedocumented in this encounter Care Teams Rehab Services Aide Relationship Specialty Start Date End Date Vladislav Duran MD 580 [facility] [address] [place] [address] PCP - General Internal Medicine 03/30/16 06/18/24 Celeste Kaur MD [address] [place] [address] [address] [place] [address] PCP - General Internal Medicine 06/22/24 documented as of this encounter
--- OUTSIDE RECORDS SUMMARY | 2025-01-23 10:37 | XMS_ITS | Encounter Summary ---
Author Organization [facility] Address [address] [place] [address] Care Team Providers Care Wildlife Policy Professional Name Role Phone Vladislav Duran MD Primary Care Provider [phone] Celeste Kaur MD Primary Care Provider [phone] Encounter Details Date Type Department Care Team (Late st Contact Info) Description 10/07/2016 Scanned Document [place] [address] [place] [address] Provider, Generic Social History Tobacco [...] EDT Office Visit [facility] [address] [place] [phone] Khalida Muller PA-C [address] [place] [address] Kelvin Saab, PT 80 [place] [address] Jenna Jain Au.D [address] [place] [address] documented as of this encounter Procedures Procedure Name Priority Date/Time Associated Diagnosis Comments LAB RESULT 10/07/2016 documented in this encounter Results * LAB RESULT (10/07/2016) Narrative 10/07/2016 Ordered by an unspecified provider. us Generic Provider HX AMB PROCEDURES Edited Result - Final documented in this encounter Visit Diagnoses Not on filedocumented in this encounter Care Teams Wildlife Policy Professional Relationship Specialty Start Date End Date Vladislav Duran MD [address] [place] [address] [address] [place] [address] PCP - General Internal Medicine 03/30/16 06/18/24 Celeste Kaur MD [address] [place] [address] [address] [address] PCP - General Internal Medicine 06/22/24 documented as of this encounter
--- OUTSIDE RECORDS SUMMARY | 2025-01-23 10:37 | XMS_ITS | Encounter Summary ---
Author Organization [facility] Address [address] [place] [address] Care Team Providers Care Plate Driller Name Role Phone Vladislav Duran MD Primary Care Provider [phone] Celeste Kaur MD Primary Care Provider [phone] Encounter Details Date Type Department Care Team (Late st Contact Info) Description 03/30/2016 Scanned Document [facility] Endocrinology [place] [address] [place] [address] Glenroy Rivera MD [address] [place] [address] Social History Tobacco Use Types Packs/Day Years [...] EDT Office Visit [facility] [place] [address] [place] [phone] Khalida Muller PA-C 40 [place] [address] Kelvin Saab, PT 80 [place] [address] Jenna Jain Au.D 40 [place] [address] documented as of this encounter Visit Diagnoses Not on filedocumented in this encounter Care Teams Plate Driller Relationship Specialty Start Date End Date Vladislav Duran MD 580 [facility] [address] [place] [address] PCP - General Internal Medicine 03/30/16 06/18/24 Celeste Kaur MD [address] [place] [address] Dr [address] [place] [address] PCP - General Internal Medicine 06/22/24 documented as of this encounter
--- OUTSIDE RECORDS SUMMARY | 2025-01-23 10:37 | XMS_ITS | Encounter Summary ---
Author Organization [facility] Address [address] [facility] [address] [place] [address] Phone Care Team Providers Care Product Safety Lead Name Role Phone Irvin Mcfadden MD Unavailable [phone] Adelita Jay [employer] OPERATOR Primary Care Provid er Encounter Details Date Type Department Care Team (Late st Contact Info) Description 05/10/2024 Procedure Pass [address] [place] [address] Social History Tobacco Use Types Packs/Day Years [...] high school, GED, job training, learning the [place] language, technical skills, or developing parenting skills)? [...] EDT Office Visit [facility] [address] [place] [address] [place] [address] Adelita Jay, MOLLY 170 [facility], 2nd Floor [place] [address] [email or web address] documented as of this encounter Visit Diagnoses Not on filedocumented in this encounter Additional Health Concerns Assessment Noted Time PHQ-9 Depression Total Score: 5 05/11/19 10:52 AM EST PHQ-2 Depression Total Score: 2 05/11/19 10:52 AM EST documented as of this encounter Care Teams Product Safety Lead Relationship Specialty Start Date End Date Adelita Jay CNP [address] [place] [address], 2[address] [place] [address] [email or web address] PCP - General Family Medicine 12/29/23 Irvin Mcfadden MD Insurance Assigned Provider Family Medicine 11/25/22 documented as of this encounter Additional Source Comments The information contained in this document represents components of the legal health record. It is not the complete legal health record.[facility]
--- OUTSIDE RECORDS SUMMARY | 2025-01-23 10:37 | XMS_ITS | Encounter Summary ---
Author Organization [facility] Address [address] [place] [address] Care Team Providers Care Learning Center Instructor Name Role Phone Vladislav Duran MD Primary Care Provider [phone] Celeste Kaur MD Primary Care Provider Encounter Details Date Type Department Care Team (Late st Contact Info) Description 05/11/2017 Scanned Document [facility] [address] [place] [phone] Roni Dugan MD [address] [place] [address] [place] [address] Social History Tobacco Use Types Packs/Day Years [...] Office Visit [facility] [address] [address] Khalida Muller PA-C 40 [place], [place] [address] Kelvin Saab, PT 80 [place] [address] Jenna Jain Au.D 40 [place], [place] [address] documented as of this encounter Visit Diagnoses Not on filedocumented in this encounter Care Teams Learning Center Instructor Relationship Specialty Start Date End Date Vladislav Duran MD [address] [place] [address] [address] [place] [address] PCP - General Internal Medicine 03/30/16 06/18/24 Celeste Kaur MD [address] [place] [address] [address] [place] [address] PCP - General Internal Medicine 06/22/24 documented as of this encounter
--- OUTSIDE RECORDS SUMMARY | 2025-01-23 10:37 | XMS_ITS | Clinical Summary ---
Author Organization [facility] Address [address] [place] [address] Care Team Providers Care Telephone Lineworker Name Role Phone Vladislav Duran MD Primary Care Provider [phone] Allergies Active Allergy Reactions Criticality Noted Date [...] mouth daily. Wednesday thru Wednesday 0 Active [place]-3 Fatty Acids (FISH OIL PO) Take 1 [...] age to complete this topic Care Teams Telephone Lineworker Relationship Specialty Start Date End Date Vladislav Duran MD PCP - General Internal Medicine 01/22/16
--- OUTSIDE RECORDS SUMMARY | 2025-01-23 10:37 | XMS_ITS | Clinical Summary ---
Author Organization [facility] Address [address] [place] [address] Care Team Providers Care Professor Of Apologetics Name Role Phone Vladislav Duran MD Primary Care Provider [phone] Social History Tobacco Use Types Packs/Day Years [...] age to complete this topic Care Teams Professor Of Apologetics Relationship Specialty Start Date End Date Vladislav Duran MD [address] [place] [address] PCP - General Internal Medicine 01/22/16
--- OUTSIDE RECORDS SUMMARY | 2025-01-23 10:37 | XMS_ITS | Encounter Summary ---
Author Organization [facility] Address [address] [place] [address] Care Team Providers Care Escort Vehicle Driver Name Role Phone Vladislav Duran MD Primary Care Provider [phone] Celeste Kaur MD Primary Care Provider [phone] Encounter Details Date Type Department Care Team (Late st Contact Info) Description 12/05/2014 Scanned Document [facility] HIM [address] [facility] [address] [place] [address] Provider, Generic Social History Tobacco Use [...] EDT Office Visit [facility] 40 [place] [address] Khalida Muller PA-C 40 [place] [address] Kelvin Saab, PT 80 [place] [address] Jenna Jain Au.D 40 [place] [address] documented as of this encounter Visit Diagnoses Not on filedocumented in this encounter Care Teams Escort Vehicle Driver Relationship Specialty Start Date End Date Vladislav Duran MD 580 [facility] [address] [place] [address] PCP - General Internal Medicine 03/30/16 06/18/24 Celeste Kaur MD [address] [place] [address] [address] [address] PCP - General Internal Medicine 06/22/24 documented as of this encounter
--- OUTSIDE RECORDS SUMMARY | 2025-01-23 10:37 | XMS_ITS | Clinical Summary ---
Author Organization [facility], Address [address] [place] [address] Phone Care Team Providers Care Rn Care Manager Name Role Phone Unavailable Primary Care Provider [...] patient's age to complete this topic Insurance [facility] Medicare
[2025-01-23 13:43] LABS: Free T4 (Free Thyroxine) 1.22 ng/dL (0.71-1.85); Thyroid Stimulating Hormone 0.09 uIU/mL (0.32-4.0)
== END 2025-01-23 09:25 | disposition home or self-care (01) ==
LOC: HO.10HDL 09:24
PROVIDERS: Visit Provider Internal Medicine Endocrinology, Diabetes & Metabolism
DX: R79.89 Other specified abnormal findings of blood chemistry (principal); C73 Malignant neoplasm of thyroid gland
CPT/HCPCS: 36415; 84432; 84439; 84443; 84481; 86800

== ENCOUNTER 2025-03-12 11:44 | Outpatient (REF) | payer MEDICARE, MEDICAID, SELFPAY ==
[2025-03-12 15:35] LABS: Free T4 (Free Thyroxine) 1.07 ng/dL (0.71-1.85); Thyroid Stimulating Hormone 0.60 uIU/mL (0.32-4.0)
--- OUTSIDE RECORDS SUMMARY | 2025-03-12 15:36 | XMS_ITS | Clinical Summary ---
Author Organization [facility] Address [address] [place] [address] Care Team Providers Care Assistant Professor In Family Studies Name Role Phone Celeste Kaur MD Primary Care Provider [phone] Kathe IsidroyD Unavailable [phone] Allergies Active Allergy Reactions Criticality Noted Date Comments Codeine Anaphylaxis High 03/31/2016 Pt unsure if still allergic Hydrocodone-Acetaminophe n Itching,Rash/Dermatit is High 04/17/2011 Metoclopramide Other (See Comments) Medium 01/11/2015 Lost hand movement Omeprazole Other (See Comments) Medium 07/17/2011 omeprazole Medications * This document contains information received from the source organization and may not represent a complete record from that organization. Multiple Vitamin tablet Take by mouth. Active oxybutynin (DITROPAN XL) 15 MG 24 hr tablet Take 1 tablet (15 mg total) by mouth. Active propranolol (INDERAL) 20 MG tablet Take 1 tablet (20 mg total) by mouth 2 times a day. 06/16/19 25 Active meclizine (ANTIVERT) 25 MG tablet TAKE 2 TABLETS (50 MG TOTAL) BY MOUTH 2 (TWO) TIMES A DAY NEEDED FOR DIZZINESS. 12/30/19 25 Active magnesium oxide 400 (240 Mg) MG Tab tabletIndicatio ns:New daily persistent headache Take 1 tablet (400 mg total) by mouth daily. Take 2 hours apart from other medications; take with food 30 tablet 1 02/17/20 25 Active atorvastatin (LIPITOR) 40 MG tablet Take 1 tablet (40 mg total) by mouth daily. 11/18/19 16 025 Discontinued(Th erapy completed) buPROPion (WELLBUTRIN XL) 150 MG 24 hr tablet Take 1 tablet (150 mg total) by mouth every morning. 02/24/20 16 Discontinued Cholecalciferol (VITAMIN D3) 5000 UNITS Cap Take 1,000 Units by mouth daily. Discontinued lisinopril (PRINIVIL,ZeSTR IL) 10 MG tablet Take 1.5 tablets (15 mg total) by mouth daily. 11/02/19 16 Discontinued levothyroxine (SYNTHROID, LEVOTHROID) 150 MCG tablet Take 1 tablet (150 mcg total) by mouth daily on an empty stomach. 03/21/20 16 Discontinued Biotin 3 MG Tab Take 1 tablet by mouth daily. Discontinued darifenacin (ENABLEX) 15 MG 24 hr tablet Take 1 tablet (15 mg total) by mouth daily. Do not chew, crush, or split tablet. Discontinued PANTOprazole (PROTONIX) 40 MG EC tablet 02/09/20 17 Discontinued escitalopram (LEXAPRO) 20 MG tablet Take 0.5 tablets (10 mg total) by mouth daily. 3 01/12/20 17 Discontinued oxyCODONE (ROXICODONE) 5 MG immediate release tabletIndicatio ns:SI (sacroiliac) joint dysfunction Take 1 tablet (5 mg total) by mouth 3 times daily (every 8 hours) as needed for moderate pain. Max Daily Amount: 15 mg 30 tablet 04/20/19 18 Discontinued atorvastatin (LIPITOR) 40 MG tablet Take 1 tablet (40 mg total) by mouth. 12/29/19 24 Discontinued magnesium oxide 400 (240 Mg) MG Tab tabletIndicatio ns:New daily persistent headache Take 1 tablet (400 mg total) by mouth daily. Take 2 hours apart from other medications; take with food 30 tablet 1 08/16/19 25 Discontinued(Re order) Active Problems Problem Noted Date Diagnosed Date Stenosis of intracranial vessel 06/19/2024 SI (sacroiliac) joint dysfunction 03/30/2017 Thyroid cancer 03/31/2016 Sacroiliac sprain Encounters * This document contains information received from the source organization and may not represent a complete record from that organization. Date Type Department Care Team Description 02/15/2025 10:30 AM EDT [facility] Visit [facility] [address] [address] Khalida Muller, Kelvin Holcomb, PT Jenna Jain Au.D BPPV (benign paroxysmal positional vertigo), right (Primary Dx); Dizziness and giddiness; Sensory hearing loss, bilateral; Vestibular migraine from Last 3 Months Family History Medical [...] EST Inhaled Oxygen Concentration - - Weight 90.7 kg (200 lb) 02/15/2025 11:26 AM EDT Height 172.7 cm (5' 8 ) 02/15/2025 11:26 AM EDT Body Mass Index 30.41 02/15/2025 11:26 AM EDT Plan of Treatment Health Maintenance Due Date Last Done Comments Advance Care Planning 1960 Hepatitis C Virus Screening 1960 COVID-19 Vaccine (#1) 1963 DTaP/Tdap/Td Vaccines (1 - Tdap) 1977 Pneumococcal Vaccines 50+ (1 of 2 - PCV) 1977 Zoster (Shingles) Vaccine (1 of 2) 1977 Mammogram 1998 Colonoscopy 2003 RSV Vaccine 50 years and older and Patients (1 - Risk 50-74 years 1-dose series) 2008 DXA Bone Density (Females,Ages 65 and older) 2023 Influenza Vaccine 11/17/2024 01/31/2021, , 02/09/2019, Additional history exists Hepatitis B Vaccines Aged Out No long er eligible based on patient's age to complete this topic Medical Devices Implanted Type Area Traveling Auditor Device Identifier Shelf Expiration Date Model / Serial / Lot System Spinal Fixation 70mm 7mm Ifuse Implant System 3ang - [id number] Implanted:Qty: 1 on 03/30/2017 by Roni Dugan MD at [facility] [employer] 11/16/2018 7070-90 / / System Spinal Fixation 50mm 7mm Ifuse Implant System 3ang - [id number] Implanted:Qty: 1 on 03/30/2017 by Roni Dugan MD at [facility] [employer] 07/15/2021 7050-90 / / System Spinal Fixation 40mm 7mm Ifuse Implant System 3ang - [id number] Implanted:Qty: 1 on 03/30/2017 by Roni Dugan MD at [facility] [employer] 05/01/2021 7040-90 / / [id number] Explanted Type Area Traveling Auditor Device Identifier Shelf Expiration Date Model / Serial / Lot Pin Fixation 3.2mm Guide - [id number] Explanted:Qty: 3 on 03/30/2017 at [facility] Wire [employer] [id number] / / Pin Fixation 3.2mm Blunt - [id number] Explanted:Qty: 1 on 03/30/2017 at [facility] [employer] [id number] / / Pin Fixation 3.2mm Exch - [id number] Explanted:Qty: 1 on 03/30/2017 at [facility] [id number] / / Procedures Procedure Name Priority Date/Time Associated Diagnosis Comments SINUSOIDAL VERTICAL & BASIC VESTIBULAR PANEL Routine 02/15/2025 10:30 AM EDT Dizziness and giddiness COMP HEARING TEST & EVOKED Routine 02/15/2025 10:30 AM EDT Dizziness and giddiness Sensory hearing loss, bilateral from Last 3 Months Results * SINUSOIDAL VERTICAL & BASIC VESTIBULAR PANEL (02/15/2025 10:30 AM EDT) Riley Salazar MD - 02/15/2025 10:30 AM EDT Riley Maher MD 02/15/2025 5:00 PM In order to differentiate peripheral from central sources of dysbalance or dizziness, sinusoidal vertical axis rotation of the head with eye movement recording was performed. VOR gain was calculated and found to be within normal limits for both right and left rotation. Basic vestibular evaluation was done with video recording of eye movements (interacoustics) in the following conditions that are documented in the notes: Spontaneous Gaze evoked right and left Head Shake Smooth pursuit Saccades, right and left OPK right and left with peripheral stimulation showed intact optokinetic responses Shital Hallpike right [place] Hallpike left Supine straight Roll right Roll left Results c/w right posterior canalithiasis us Riley Maher MD AMB ORDERABLE PERFORMABLE Final Result * COMP HEARING TEST & EVOKED (02/15/2025 10:30 AM EDT) Jenna Ribeiro Au.D - 02/15/2025 10:30 AM EDT Pat Kenney 02/15/2025 11:00 AM us Riley Maher MD AMB ORDERABLE PERFORMABLE Final Result from Last 3 Months Insurance [employer] Member Subscriber Plan / Payer (Ef fective 2024-Present) Name:Dior Smith Relation to Subscriber:Self Name:Dior Smith Payer ID:[id number] (NAIC) Type:Not on file Address: [place] [id number] MEDICARE Member Subscriber Plan / Payer (Ef fective 2024-Present) Name:Dior Smith Relation to Subscriber:Self Name:Sarah Dior Payer ID:[id number] (NAIC) Type:Not on file Address: [place] [id number] [place] [address] MEDICARE Member Subscriber Plan / Payer (Ef fective 2024-Present) Name:Sarah Dior Relation to Subscriber:Self Name:Dior Smith Payer ID:[id number] (NAIC) Type:Not on file Address: [place] [id number] [facility], [address] [place] [id number] Advance Directives * Full Code (Latest Code Status on File) Date Activated Date Inactivated Comments 03/30/2017 10:26 AM Care Teams Assistant Professor In Family Studies Relationship Specialty Start Date End Date Celeste Kaur MD [address] [place] [address] [address] [place] [address] PCP - General Internal Medicine 06/22/24 Kathe Isidro PsyD [address] [place] [address] Clinical Psychologist Neuropsychology 02/12/25
--- OUTSIDE RECORDS SUMMARY | 2025-03-12 15:36 | XMS_ITS | Encounter Summary ---
Author Organization [facility] Address [address] [place] [address] Phone Care Team Providers Care Cavity Pump Operator Name Role Phone Carl Jean MD Primary Care Provider [phone] Lora Jacome DO Primary Care Provider Lora Jacome DO Primary Care Provider [phone] Irvin Mcfadden MD Unavailable Adelita Jay [facility] Primary Care Provid er Encounter Details Date Type Department Care Team (Late st Contact Info) Description 10/02/2021 Prep for Surgery [facility] Orthopedics & Sports Medicine [address] [place] [address] Nannette Romero MD [address] [place] [address] Orthopedics & Sports Medicine, [place] [address] Social History Tobacco Use Types [...] EDT Office Visit [facility] [address] [place] [address] [place] [address] Adelita Jay CNP [address] [place] [address], [address] [place] [address] documented as of this encounter Visit Diagnoses Not on filedocumented in this encounter Care Teams Cavity Pump Operator Relationship Specialty Start Date End Date Carl Jean MD [address] [place] [address] PCP - General Internal Medicine 04/28/21 11/04/21 Lora Jacome DO [address] [place] [address] mary PCP - General Family Medicine 11/05/21 04/13/22 Lora Jacome DO [address] [place] [address] mary PCP - General Family Medicine 04/14/22 12/28/23 Adelita Jay CNP [address] [place] [address] PCP - General Family Medicine 12/29/23 Irvin Mcfadden MD [address] [place] [phone] Insurance Assigned Provider Family Medicine 11/25/22 documented as of this encounter Additional Source Comments The information contained in this document represents components of the legal health record. It is not the complete legal health record.[facility]
--- OUTSIDE RECORDS SUMMARY | 2025-03-12 15:36 | XMS_ITS | Encounter Summary ---
Author Organization [facility] Address [address] [place] [address] Care Team Providers Care Reheater Helper Name Role Phone Vladislav Duran MD Primary Care Provider [phone] Celeste Kaur MD Primary Care Provider [phone] Kathe Isidro PsyD Unavailable [phone] Encounter Details Date Type Department Care Team (Late st Contact Info) Description 07/08/2017 Scanned Document [facility] [address] [place] [id number] Roni Dugan MD [address] [place] [id number] Social History Tobacco Use Types Packs/Day Years [...] on filedocumented in this encounter Care Teams Reheater Helper Relationship Specialty Start Date End Date Vladislav Duran MD [address] [facility] [address] [place] [address] PCP - General Internal Medicine 03/30/16 06/18/24 Celeste Kaur MD [address] [place] [address] [address] [place] [address] PCP - General Internal Medicine 06/22/24 Kathe Isidro PsyD [address] [place] [address] Clinical Psychologist Neuropsychology 02/12/25 documented as of this encounter
--- OUTSIDE RECORDS SUMMARY | 2025-03-12 15:36 | XMS_ITS | Encounter Summary ---
Author Organization [facility] Address [address] [facility] [address] [place] [address] Phone Care Team Providers Care Reception Manager Name Role Phone Irvin Mcfadden MD Unavailable [phone] Adelita Jay OUTSIDE FOOD SERVER Primary Care Provid er Encounter Details Date Type Department Care Team (Late st Contact Info) Description 12/29/2023 Procedure Pass [facility] - [address] [place] [address] Social History Tobacco Use Types Packs/Day Years [...] high school, GED, job training, learning the Macanese language, technical skills, or developing parenting skills)? [...] EDT Office Visit [facility] [address] [place] [address] [place] [address] Adelita Jay, MOLLY [address] [facility], [address] [place] [address] [email or web address] documented as of this encounter Visit Diagnoses Not on filedocumented in this encounter Additional Health Concerns Assessment Noted Time PHQ-9 Depression Total Score: 5 05/11/19 10:52 AM EST PHQ-2 Depression Total Score: 2 05/11/19 10:52 AM EST documented as of this encounter Care Teams Reception Manager Relationship Specialty Start Date End Date Adelita Jay CNP [address] [place] [address], [address] [place] [address] [email or web address] PCP - General Family Medicine 12/29/23 Irvin Mcfadden MD Insurance Assigned Provider Family Medicine 11/25/22 documented as of this encounter Additional Source Comments The information contained in this document represents components of the legal health record. It is not the complete legal health record.[facility]
--- OUTSIDE RECORDS SUMMARY | 2025-03-12 15:36 | XMS_ITS | Encounter Summary ---
Author Organization [facility] Address [address] [place] [address] [place] [address] Phone Care Team Providers Care Production Mechanic Tin Cans Name Role Phone Lora Jacome DO Primary Care Provider [phone] Irvin Mcfadden MD Unavailable [phone] Adelita Jay [facility] Primary Care Provid er Encounter Details Date Type Department Care Team (Late st Contact Info) Description 08/07/2023 Procedure Pass [facility], [facility] Scan - [facility] [address] [place] [address] Social History Tobacco Use Types Packs/Day Years [...] 1:39 PM EDT Crystal Benavides RN * [place] Suicide Severity Rating Scale (Screener/Recent Self-Report) Question [...] Description 01/04/2026 8:00 AM EDT Office Visit [facility] [address] [place] [address] [place] [address] Adelita Jay CNP [address] [place] [address], [address] [place] [address] [email or web address] documented as of this encounter Visit Diagnoses Not on filedocumented in this encounter Care Teams Production Mechanic Tin Cans Relationship Specialty Start Date End Date Lora Jacome DO [address] [place] [address] mary PCP - General Family Medicine 04/14/22 12/28/23 Adelita Jay CNP [address] [place] [address] PCP - General Family Medicine 12/29/23 Irvin Mcfadden MD [address] [place] [address] [email or web address] Insurance Assigned Provider Family Medicine 11/25/22 documented as of this encounter Additional Source Comments The information contained in this document represents components of the legal health record. It is not the complete legal health record.[facility]
--- OUTSIDE RECORDS SUMMARY | 2025-03-12 15:36 | XMS_ITS | Encounter Summary ---
Author Organization [facility] Address [address] [place] [address] Care Team Providers Care Cnc Machinist 2Nd Shift Name Role Phone Vladislav Duran MD Primary Care Provider [phone] Celeste Kaur MD Primary Care Provider [phone] Kathe Isidro PsyD Unavailable [phone] Encounter Details Date Type Department Care Team (Late st Contact Info) Description 05/24/2017 Scanned Document [facility] [address] [place] [id number] Alyse Franks, PA-C [address] [place] [address] Social History Tobacco Use Types Packs/Day Years [...] filedocumented in this encounter Care Teams Cnc Machinist 2Nd Shift Relationship Specialty Start Date End Date Vladislav Duran MD [address] [facility] [address] [place] [address] PCP - General Internal Medicine 03/30/16 06/18/24 Celeste Kaur MD [address] [place] [address] [address] [place] [address] PCP - General Internal Medicine 06/22/24 Kathe Isidro PsyD [address] [place] [address] Clinical Psychologist Neuropsychology 02/12/25 documented as of this encounter
--- OUTSIDE RECORDS SUMMARY | 2025-03-12 15:36 | XMS_ITS | Clinical Summary ---
Author Organization [facility] Address [address] [address] Phone Care Team Providers Care Manager Web Application Name Role Phone Irvin Mcfadden MD Unavailable [phone] Adelita Jung [facility] Primary Care Provid er Allergies Active [...] OTHER MEDICATIONS TAKE WITH FOOD 025 Active oxyBUTYnin (DITROPAN XL) 15 MG [...] A DAY 180 tablet 1 025 Active escitalopram oxalate (LEXAPRO) 10 MG tabletIndications :Generalized anxiety disorder TAKE 1 TABLET BY MOUTH EVERY DAY 90 tablet 3 025 Active escitalopram oxalate (LEXAPRO) 10 MG tabletIndications :Generalized anxiety disorder TAKE 1 TABLET BY MOUTH EVERY DAY 90 tablet 1 025 2024 Discontinued Active Problems Problem Noted Date Diagnosed Date Small vessel disease, cerebrovascular 06/16/2024 Assessment & Plan (07/02/2024 1:55 PM EDT): Recent brain MRI showed signs of chronic small vessel disease, no signs of stroke or mass. This is not likely related to her recent headaches but may affect her cognition or memory halfway and may suggest a higher risk for [...] WRITTEN ON 12/29/2023 10:25 AM BY ADELITA JUNG, LENGTH CONTROL TESTER RLE rash likely allergic reaction to suspected [...] Encounters Date Type Department Care Team Description 03/06/2025 Refill [email or web address] [address] [place] [address] Adelita Jung CNP Medication Refill 01/14/2025 Refill [facility] [address] [place] [address] Adelita Jung CNP Medication Refill 12/29/2024 8:59 AM EDT - 12/29/2024 11:59 PM EDT Hospital Encounter [facility] [place] [address] Adelita Jung CNP Discharge Disposition: Home or Self Care 12/29/2024 8:00 AM EDT Office Visit [facility] [address] [place] [address] Adelita Jung CNP Encounter for health maintenance examination in adult (Primary Dx); Encounter for screening for depression; Vertigo; Osteopenia of left hip; Pure hypercholesterolemi a; Postoperative hypothyroidism; Need for Tdap vaccination; Breast cancer screening by mammogram from Last 3 Months Immunizations Immunization Administration Dates Next Due DTaP 05/06/1993 [id number] FORMULATION 06/13/2009 Influenza Quadrivalent Preservative Free IM 01/17,02/14/2020,02/09/2019 Influenza, Unspecified Formulation 12/29/2012, Td, unspecified formulation 07/17/2011, 5 Tdap 12/29/2024 Family History Medical History Relation Comments Lung cancer Father Lung Cancer, smo ker and automobile mechanic helper Stroke Mother Cerebrovascular Accident Breast cancer Sister s/p bilat lumpec tomies, chemo, radiation Colon cancer Neg Hx Diabetes mellitus Neg Hx Heart disease Neg Hx Ovarian cancer Neg Hx Relation Status Comments Father Mother Sister Social History Tobacco Use Types Packs/Day Years Used Date Smoking Tobacco: Former Cigarettes 0.5 19 - 2017 Passive Smoke Exposure: Past Smokeless Tobacco: Never [...] high school, GED, job training, learning the Slovenian language, technical skills, or developing parenting skills)? [...] EDT Office Visit [facility] [address] [place] [address] [place] [address] Adelita Jung, MOLLY [address] [facility], 2nd [place] [address] [email or web address] Health Maintenance Due Date Last Done Comments COLOGUARD 2003 FIT TEST 2003 FOBT 2003 SIGMOIDOSCOPY 2003 VIRTUAL COLONOSCOPY 2003 PNEUMOCOCCAL VACCINES (50+ years) (1 of 1 - PCV) 2008 ZOSTER VACCINES (1 of 2) 2008 COVID-19 VACCINE (4 - 2024- season) 2024 04/02/2021, 08/10/2020, 07/19/2020 BLOOD PRESSURE 06/28/2025 12/29/2024 INFLUENZA VACCINE (#1) 2025 , 02/14/2020, 02/09/2019, Additional history exists Postponed from 11/17/2024 (Patient Declines / Guardian Declines) DEPRESSION SCREENING 12/29/2025 12/29/2024, 05/11/19 25 TSH LEVEL 12/29/2025 12/29/2024, 10/2024, 12/29/2023 FOLLOW UP BONE DENSITY TESTING [...] this topic Medical Devices Implanted Type Area Attendant Lodging Facilities Device Identifier Shelf Expiration Date Model / Serial / Lot Daniel Daniel Sacrum Description:3 titanium rods si joint reconstruction decompression surgery [place] Suture Size 0 Needleos2 [id number] Arthroscopy Quick Double Arm Mini - [id number] Implanted:Qty: 1 on 11/19/2021 by Nannette Romero MD at [facility] Right: Hand [employer] 09/16/2025 [id number] / / [id number] [place] Suture Size 0 Needleos2 [id number] Arthroscopy Quick Double Arm Mini - [id number] Implanted:Qty: 1 on 01/29/2023 by Nannette Romero MD at [facility] Left: Thumb [employer] [id number] 11/17/2027 [id number] / / [id number] Procedures Procedure Name Priority Date/Time Associated Diagnosis Comments FREE T4 Routine 12/29/2024 9:01 AM EDT Postoperative hypothyroidism THYROID STIMULATING HORMONE (TSH) Routine 12/29/2024 9:01 AM EDT Postoperative hypothyroidism LIPID PANEL Routine 12/29/2024 9:01 AM EDT Pure hypercholesterolemia COMPREHENSIVE METABOLIC PANEL (CMP) Routine 12/29/2024 9:01 AM EDT Pure hypercholesterolemia [...] EDT Need for hepatitis C screening test COLONOSCOPY FOR RESULT ENTRY ONLY Routine 02/19/2021 from Last 3 Months or Most Recently Relevant to Health Maintenance Results * (ABNORMAL) Comprehensive metabolic panel (12/29/2024 9:01 AM EDT) SODIUM 143 133 - 146 mmol/L [facility] POTASSIUM 5.3(H) 3.3 - 5.1 mmol/L [facility] CHLORIDE 108 96 - 108 mmol/L [facility] CO2 24 21 - 35 mmol/L [facility] BUN 24(H) 6 - 19 mg/dL [facility] CREATININE 0.90 0.5 - 1.5 mg/dL [facility] GLUCOSE 103(H) 70 - 99 mg/dL [facility] ALBUMIN 4.5 3.9 - 4.8 g/dL [facility] TOTAL PROTEIN 7.6 6.5 - 8.0 g/dL [facility] CALCIUM 9.8 8.4 - 10.3 mg/dL [facility] ALKALINE PHOSPHATASE 112 39 - 117 U/L [facility] TOTAL BILIRUBIN 0.7 0.0 - 1.2 mg/dL [facility] AST 21 0 - 37 U/L [facility] ALT 19 0 - 40 U/L [facility] GLOBULIN 3.1 1 - 4.8 g/dL [facility] EGFR 71 >59 mL/min/1.7 3m2 [facility] Comment:Estimated glomerular filtration rate calculated using the CKD-EPI refit equation. ANION GAP 16 10 - 20 mmol/L [facility] Blood 12/29/2024 9:01 AM EDT 12/29/2024 9:07 AM EDT [facility] ORDER[facility] BLES Final Result [address] [address] * 25-OH vitamin D (12/29/2024 9:01 AM EDT) 25 OH VIT D (TOTAL) 42 30 - 60 ng/mL [facility] Blood 12/29/2024 9:01 AM EDT 12/29/2024 9:07 AM EDT [facility] LAB BLOOD BKR ORDERA BLES Final Result [address] [address] * (ABNORMAL) TSH (12/29/2024 9:01 AM EDT) TSH 0.25(L) 0.27 - 4.20 uIU/mL [facility] Blood 12/29/2024 9:01 AM EDT 12/29/2024 9:07 AM EDT [facility] ORDERA BLES Final Result Performing Organization Address City/[facility]/ZIP Co de Phone Number [address] [address] * Free T4 (12/29/2024 9:01 AM EDT) FREE T4 1.5 0.9 - 1.7 ng/dL [facility] Blood 12/29/2024 9:01 AM EDT 12/29/2024 9:07 AM EDT [facility] LAB BLOOD BKR ORDERA BLES Final Result Performing Organization Address [facility] Co de Phone Number [address] [address] * Lipid panel (12/29/2024 9:01 AM EDT) HDL 53 mg/dL [facility] Comment: Interpretation <40 mg/dL: Low HDL cholesterol (major risk factor for CHD) Greater than or equal to 60 mg/dL: High HDL cholesterol ( negative risk factor for CHD) HDL - cholesterol is affected by a number of factors, e.g. smoking, excerise, hormones, sex and age. CHOLESTEROL 175 0 - 240 mg/dL [facility] TRIGLYCERIDES 143 30 - 160 mg/dL [facility] LDL 93 50 - 129 mg/dL [facility] Comment: LDL levels in terms of risk for coronary heart disease: <100 mg/dL: Optimal 100-129 mg/dL: Near or above optimal 130-159 mg/dL: Borderline high 160-189 mg/dL: High >190 mg/dL: Very High CARDIAC RISK RATIO 3.3 3.3 - 4.4 C [facility] Blood 12/29/2024 9:01 AM EDT 12/29/2024 9:07 AM EDT us Adelita Kathleen Jung CNP LAB BLOOD BKR ORDERA BLES Final Result [address] [address] * BI MAMMOGRAM SCREENING WITH TOMOSYNTHESIS WITH [...] be notified of the results and recommendations. us Adelita Jung LENGTH CONTROL TESTER IMG MG EXAMS Ramila l Result * BD DXA AXIAL (SPINE) WITH HIP (02/28/2024 7:39 AM EST) Anatomical Region Laterality Modality Bone Density Bone Density 02/28/2024 7:36 AM EST Impressions 02/28/2024 7:42 AM EST Interpretation: Osteopenia. Narrative 02/28/2024 7:42 AM EST Referred By: ADELITA JUNG Indications: Osteopenia Scanner: eSellerPro A with serial# of [id number] located at [facility] Bone Density Scan (DXA) 02/28/24 Details of [...] -2.5), or Osteoporosis (T-score <= -2.5). At [facility], T-scores are compared to peak bone density [...] Referred By: ADELITA JUNG Indications: Osteopenia Scanner: eSellerPro A with serial# of [id number] located at [facility] Bone Density Scan (DXA) 02/28/24 [...] -2.5), or Osteoporosis (T-score <= -2.5). At [facility], T-scores are compared to peak bone density [...] C antibody, qualitative (12/29/2023 9:39 AM EDT) [facility] HCV NON-REACTIV E NON-REACTI VE [facility] Blood 12/29/2023 9:39 AM EDT 12/29/2023 9:48 AM EDT Adelita Jung CNP LAB BLOOD BKR ORDERA BLES Final Result [facility] [address] [place] [address] * COLONOSCOPY FOR RESULT ENTRY ONLY (02/19/2021) Pathologist [facility] Colonoscopy Single benign rectal polyp, 10 yr recall Historical Provider HEALTH MAINTENANCE Final Result from Last 3 Months or Most Recently Relevant to Health Maintenance Insurance MEDICARE REPLACEMENT MEDIC[facility] PART A [facility] [place] [address] MEDICARE REPLACEMENT [place] [id number] MEDICARE PART A & B [facility] MEDICARE REPLACEMENT [place] [id number] [facility]IC[facility] PART [facility] & [facility] RE[facility] MEDICARE REPLACEMENT [facility] PART [facility] & [facility] MEDICARE REPLACEMENT [facility] PART A & [facility] [place], [place] Advance Directives For more information, please contact: [phone] (9AM - 5PM [facility], Wednesday-Wednesday) Documents on File Type Date Recorded Patient Book Critic Expl anation Healthcare Proxy 05/25/2024 11:08 AM Care Teams Manager Web Application Relationship Specialty Start Date End Date Adelita Jung CNP [address] [place] [address], [address]nd Floor [place], [place] PCP - General Family Medicine 12/29/23 Irvin Mcfadden MD Insurance Assigned Provider Family Medicine 11/25/22 Additional Source Comments The information contained in this document represents components of the legal health record. It is not the complete legal health record.[facility]
--- OUTSIDE RECORDS SUMMARY | 2025-03-12 15:36 | XMS_ITS | Encounter Summary ---
Author Organization [facility] Address [address] [facility] [address] [place] [address] Phone Care Team Providers Care Cardiac Sonographer Name Role Phone Lora Jacome Opal DO Primary Care Provider Irvin Mcfadden MD Unavailable [phone] Adelita Jay [facility] Primary Care Provid er Encounter Details Date Type Department Care Team (Latest Contact Info) Description 12/13/2023 Transcribe Orders Virtual Department [address] [place] [address] Rogelio Minaya MD [address] [place] [address] [email or web address] Osteopenia, unspecified location (Primary Dx) Social History [...] Description 01/04/2026 8:00 AM EDT Office Visit [facility] [address] [place] [address] [place] [address] Adelita Jay CNP [address] [place] [address] [email or web address] documented as of this encounter Visit Diagnoses Diagnosis Osteopenia, unspecified location- Primary documented in this encounter Care Teams Cardiac Sonographer Relationship Specialty Start Date End Date Lora Jacome DO [address] [place] [address] mary PCP - General Family Medicine 04/14/22 12/28/23 Adelita Jay CNP [address] [place] [address] PCP - General Family Medicine 12/29/23 Irvin Mcfadden MD [address] [place] [phone] Insurance Assigned Provider Family Medicine 11/25/22 documented as of this encounter Additional Source Comments The information contained in this document represents components of the legal health record. It is not the complete legal health record.[facility]
--- OUTSIDE RECORDS SUMMARY | 2025-03-12 15:36 | XMS_ITS | Encounter Summary ---
Author Organization [facility] Address [address] [place] [address] [place] [address] Phone Care Team Providers Care Conservation Policy Analyst Name Role Phone Lora Jacome DO Primary Care Provider [phone] Irvin Mcfadden MD Unavailable Adelita Jay [facility] Primary Care Provid er Encounter Details Date Type Department Care Team (Late st Contact Info) Description 01/29/2023 Procedure Pass OR Admitting Dept - Virtual Department [address] [place] [address] Social History Tobacco Use Types Packs/Day Years [...] EDT Office Visit [facility] [address] [place] [address] [place] [address] Adelita Jay CNP [address] [place] [address], [address] [place] [address] documented as of this encounter Visit Diagnoses Not on filedocumented in this encounter Care Teams Conservation Policy Analyst Relationship Specialty Start Date End Date Lora Jacome DO [address] [place] [address] mary PCP - General Family Medicine 04/14/22 12/28/23 Adelita Jay CNP [address] [place] [address] PCP - General Family Medicine 12/29/23 Irvin Mcfadden MD [address] [place] [address] Insurance Assigned Provider Family Medicine 11/25/22 documented as of this encounter Additional Source Comments The information contained in this document represents components of the legal health record. It is not the complete legal health record.[facility]
--- OUTSIDE RECORDS SUMMARY | 2025-03-12 15:36 | XMS_ITS | Encounter Summary ---
Author Organization [facility] Address [address] [place] [address] Care Team Providers Care Sports Nutritionist Name Role Phone Vladislav Duran MD Primary Care Provider [phone] Celeste Kaur MD Primary Care Provider Kathe Isidro PsyD Unavailable [phone] Encounter Details Date Type Department Care Team (Late st Contact Info) Description 09/08/2017 Scanned Document [facility] [place] [address] [place] [phone] Provider, Generic Social History Tobacco Use Types [...] on file documented as of this encounter Procedures Procedure Name Priority Date/Time Associated Diagnosis Comments LAB RESULT 09/08/2017 documented in this encounter Results * LAB RESULT (09/08/2017) Narrative 09/08/2017 Ordered by an unspecified provider. us Generic Provider HX AMB PROCEDURES Edited Result - Final documented in this encounter Visit Diagnoses Not on filedocumented in this encounter Care Teams Sports Nutritionist Relationship Specialty Start Date End Date Vladislav Duran MD [address] [facility] [address] [place] [address] PCP - General Internal Medicine 03/30/16 06/18/24 Celeste Kaur MD [address] [place] [address] [address] [place] [address] PCP - General Internal Medicine 06/22/24 Kathe Isidro PsyD [address] [place] [address] Clinical Psychologist Neuropsychology 02/12/25 documented as of this encounter
--- OUTSIDE RECORDS SUMMARY | 2025-03-12 15:36 | XMS_ITS | Encounter Summary ---
Author Organization [facility] Address [address] [facility] [address] [place] [address] Phone Care Team Providers Care Community Education Coordinator Name Role Phone Lora Jacome Opal DO Primary Care Provider [phone] Irvin Mcfadden MD Unavailable [phone] Adelita Jay [facility] Primary Care Provid er Encounter Details Date Type Department Care Team (Latest Contact Info) Description 04/20/2023 Transcribe Orders Virtual Department [address] [place] [address] Rogelio Minaya MD [address] [place] [address] [email or web address] Other specified disorders of bone density and [...] 01/04/2026 8:00 AM EDT Office Visit [facility] [address] [place] [address] [place] [address] Adelita Jay CNP [address] [place] [address] documented as of this encounter Visit Diagnoses Diagnosis Other specified disorders of bone density and structure, unspecified site- Primary documented in this encounter Care Teams Community Education Coordinator Relationship Specialty Start Date End Date Lora Jacome DO [address] [place] [address] mary PCP - General Family Medicine 04/14/22 12/28/23 Adelita Jay CNP [address] [place] [address] PCP - General Family Medicine 12/29/23 Irvin Mcfadden MD [address] [place] [address] Insurance Assigned Provider Family Medicine 11/25/22 documented as of this encounter Additional Source Comments The information contained in this document represents components of the legal health record. It is not the complete legal health record.[facility]
--- OUTSIDE RECORDS SUMMARY | 2025-03-12 15:36 | XMS_ITS | Encounter Summary ---
Author Organization [facility] Address [address] [place] [address] Care Team Providers Care Tire Vulcanizer Name Role Phone Vladislav Duran MD Primary Care Provider [phone] Celeste Kaur MD Primary Care Provider [phone] Kathe Isidro PsyD Unavailable [phone] Encounter Details Date Type Department Care Team (Late st Contact Info) Description 07/09/2017 Scanned Document [facility] [address] [place] [phone] Roni Dugan MD [address] [place] [address] Social History Tobacco Use Types Packs/Day Years [...] on filedocumented in this encounter Care Teams Tire Vulcanizer Relationship Specialty Start Date End Date Vladislav Duran MD [address] [facility] [address] [place] [address] PCP - General Internal Medicine 03/30/16 06/18/24 Celeste Kaur MD [address] [place] [address] [address] [place] [address] PCP - General Internal Medicine 06/22/24 Kathe Isidro PsyD [address] [place] [address] Clinical Psychologist Neuropsychology 02/12/25 documented as of this encounter
--- OUTSIDE RECORDS SUMMARY | 2025-03-12 15:36 | XMS_ITS | Encounter Summary ---
Author Organization [facility] Address [address] [place] [address] Phone Care Team Providers Care Cutter Barrel Drum Name Role Phone Jacome Lora Opal RECIO Primary Care Provider Irvin Mcfadden MD Unavailable Adelita Jay [facility] Primary Care Provid er Encounter Details Date Type Department Care Team (Late st Contact Info) Description 12/17/2022 Prep for Surgery [facility] Orthopedics & Sports Medicine [address] [place] [address] [phone] Nannette Romero MD [address] [place] [address] Orthopedics & Sports Medicine, [facility] [place], [place] [phone] [email or web address] Social History Tobacco Use Types Packs/Day Years [...] 01/04/2026 8:00 AM EDT Office Visit [facility] [address] [place] [address] [place] [address] Adelita Jay CNP [address] [place] [address] documented as of this encounter Visit Diagnoses Not on filedocumented in this encounter Care Teams Cutter Barrel Drum Relationship Specialty Start Date End Date Lora Jacome DO [address] [place] [address] mary PCP - General Family Medicine 04/14/22 12/28/23 Adelita Jay CNP [address] [place] [address] PCP - General Family Medicine 12/29/23 Irvin Mcfadden MD [address] [place] [address] Insurance Assigned Provider Family Medicine 11/25/22 documented as of this encounter Additional Source Comments The information contained in this document represents components of the legal health record. It is not the complete legal health record.[facility]
--- OUTSIDE RECORDS SUMMARY | 2025-03-12 15:36 | XMS_ITS | Encounter Summary ---
Author Organization [facility] Address [address] [place] [address] Phone Care Team Providers Care Foam Molder Name Role Phone Lora Jacome DO Primary Care Provider [phone] Lora Jacome DO Primary Care Provider [phone] Irvin Mcfadden MD Unavailable [phone] Adelita Jay CNP Primary Care Provid er Encounter Details Date Type Department Care Team (Late st Contact Info) Description 11/19/2021 Procedure Pass OR Admitting Dept - Virtual Department [address] [place] [address] Social History Tobacco Use Types Packs/Day Years [...] EDT Office Visit [facility] [place] [facility] [address] [place] [address] [place] [address] Adelita Jay CNP [address] [facility], [address] [place] [address] [email or web address] documented as of this encounter Visit Diagnoses Not on filedocumented in this encounter Care Teams Foam Molder Relationship Specialty Start Date End Date Lora Jacome DO mary PCP - General Family Medicine 11/05/21 04/13/22 Lora Jacome DO [address] [place] [address] mary PCP - General Family Medicine 04/14/22 12/28/23 Adelita Jay CNP [address] [facility], [address] [place] [address] PCP - General Family Medicine 12/29/23 Irvin Mcfadden MD [address] [place] [address] [email or web address] Insurance Assigned Provider Family Medicine 11/25/22 documented as of this encounter Additional Source Comments The information contained in this document represents components of the legal health record. It is not the complete legal health record.[facility]
--- OUTSIDE RECORDS SUMMARY | 2025-03-12 15:36 | XMS_ITS | Encounter Summary ---
Author Organization Formerly [facility] Address [address] [place] [address] Phone Care Team Providers Care Medical Orderly Name Role Phone Pcp, Unknown Primary Care Provider Carl Hastings MD Primary Care Provider [phone] Lora Jacome DO Primary Care Provider [phone] Lora Jacome DO Primary Care Provider Irvin Mcfadden MD Unavailable Adelita Jay [facility] Primary Care Provid er Encounter Details Date Type Department Care Team (Latest Contact Info) Description 10/24/2019 Transcribe Orders Virtual Department [address] [place] [address] Mary Alexis, ROBOTICS TESTING TECHNICIAN [address] [place], [place] [id number] Sore throat (Primary Dx); Glands swollen; Otalgia, [...] Description 01/04/2026 8:00 AM EDT Office Visit [facility] [address] [place] [address] Adelita Jay, DIRECTOR ATHLETIC 170 [facility], 2nd [place] [address] [email or web address] documented as of this encounter Results * COVID-19 PCR Order (10/25/2019 10:30 AM EDT) Specimen Source NASOPHARYNGEAL SWAB (ROBOTICS TESTING TECHNICIAN) [facility] COVID-19 Comment SWOLLEN GLANDS, EAR PAIN, DIARRHEA [facility] COVID Testing Status Sent to [facility] Other 10/25/2019 10:3 0 AM EDT 10/25/2019 12:11 PM EDT us Mary Alexis ROBOTICS TESTING TECHNICIAN LAB GENERAL ORDERABLES Final Re sult Performing Organization Address City/State/[facility] [[email or web address]] Co de Phone Number [address] [address] documented in this encounter Visit Diagnoses Diagnosis Sore throat- Primary Acute pharyngitis Glands swollen Enlargement of lymph nodes Otalgia, unspecified laterality Diarrhea, unspecified type documented in this encounter Additional Health Concerns Infection Onset Date Last Indicated Resolved Time CoV-Risk 10/24/2019 10/25/2019 11/07/2019 1:24 AM EDT CoV-Risk 03/29/2020 03/30/2020 04/12/2020 1:24 AM EST documented as of this encounter Care Teams Medical Orderly Relationship Specialty Start Date End Date Pcp, Unknown PCP - General 10/25/19 03/28/20 Carl Jean MD [address] [place] [address] PCP - General Internal Medicine 04/28/21 11/04/21 Lora Jacome DO [address] [place] [address] mary PCP - General Family Medicine 11/05/21 04/13/22 Lora Jacome DO 70 [place] [address] [email or web address] PCP - General Family Medicine 04/14/22 12/28/23 Adelita Jay CNP [address] [place] [address], 2nd [place] [address] PCP - General Family Medicine 12/29/23 Irvin Mcfadden MD [address] [place] [address] Insurance Assigned Provider Family Medicine 11/25/22 documented as of this encounter Additional Source Comments The information contained in this document represents components of the legal health record. It is not the complete legal health record.[facility]
--- OUTSIDE RECORDS SUMMARY | 2025-03-12 15:37 | XMS_ITS | Encounter Summary ---
Author Organization [facility] Address [address] [facility] [address] [place] [address] Phone Care Team Providers Care Edge Setter Name Role Phone Irvin Mcfadden MD Unavailable [phone] Adelita Jay SLEEVE SETTER SAFETY STITCH Primary Care Provid er Encounter Details Date Type Department Care Team (Late st Contact Info) Description 05/02/2024 Procedure Pass [facility], Ct Scan - [facility] [address] [place] [address] Social History Tobacco Use Types Packs/Day Years [...] high school, GED, job training, learning the [place] language, technical skills, or developing parenting skills)? [...] EDT Office Visit [facility] [address] [place] [address] [place] [address] Adelita Jay, MOLLY 170 [facility], 2nd [place] [address] [email or web address] documented as of this encounter Visit Diagnoses Not on filedocumented in this encounter Additional Health Concerns Assessment Noted Time PHQ-9 Depression Total Score: 10 024 8:47 AM EDT PHQ-2 Depression Total Score: 4 12/29/19 24 8:47 AM EDT documented as of this encounter Care Teams Edge Setter Relationship Specialty Start Date End Date Adelita Jay CNP [address] [place] [address], [address] [place] [address] [email or web address] PCP - General Family Medicine 12/29/23 Irvin Mcfadden MD Insurance Assigned Provider Family Medicine 11/25/22 documented as of this encounter Additional Source Comments The information contained in this document represents components of the legal health record. It is not the complete legal health record.[facility]
--- OUTSIDE RECORDS SUMMARY | 2025-03-12 15:37 | XMS_ITS | Encounter Summary ---
Author Organization [facility] Address [address] [place] [address] Care Team Providers Care Soap Maker Name Role Phone Vladislav Duran MD Primary Care Provider [phone] Celeste Kaur MD Primary Care Provider [phone] Kathe Isidro PsyD Unavailable [phone] Encounter Details Date Type Department Care Team (Late st Contact Info) Description 07/09/2017 Scanned Document [facility] [address] [place] [address] Roni Dugan MD [address] [place] [address] Social History Tobacco Use Types Packs/Day Years [...] on filedocumented in this encounter Care Teams Soap Maker Relationship Specialty Start Date End Date Vladislav Duran MD [address] [facility] [address] [place] [address] PCP - General Internal Medicine 03/30/16 06/18/24 Celeste Kaur MD [address] [place] [address] [address] [place] [address] PCP - General Internal Medicine 06/22/24 Kathe Isidro PsyD [address] [place] [address] Clinical Psychologist Neuropsychology 02/12/25 documented as of this encounter
--- OUTSIDE RECORDS SUMMARY | 2025-03-12 15:37 | XMS_ITS | Clinical Summary ---
Author Organization [facility] Address [address] [place] [address] Care Team Providers Care Index Editor Name Role Phone Vladislav Duran MD Primary Care Provider [phone] Allergies Active Allergy Reactions Criticality Noted Date [...] mouth daily. Wednesday thru Wednesday 0 Active Austin-3 Fatty Acids (FISH OIL PO) Take 1 [...] age to complete this topic Care Teams Index Editor Relationship Specialty Start Date End Date Vladislav Duran MD PCP - General Internal Medicine 01/22/16
--- OUTSIDE RECORDS SUMMARY | 2025-03-12 15:37 | XMS_ITS | Encounter Summary ---
Author Organization [facility] Address [address] [facility] [address] [place] [address] Phone Care Team Providers Care Mailhouse Operator Name Role Phone Irvin Mcfadden MD Unavailable [phone] Adelita Jay RENTAL AGENT Primary Care Provid er Encounter Details Date Type Department Care Team (Late st Contact Info) Description 05/10/2024 Procedure Pass [address] [place] [address] Social History Tobacco Use Types Packs/Day Years [...] high school, GED, job training, learning the Ivorian language, technical skills, or developing parenting skills)? [...] EDT Office Visit [facility] [place] [facility] [address] [place] [address] [place] [address] Adelita Jay, MOLLY 170 [facility], 2nd Floor [place] [address] [email or web address] documented as of this encounter Visit Diagnoses Not on filedocumented in this encounter Additional Health Concerns Assessment Noted Time PHQ-9 Depression Total Score: 5 05/11/19 10:52 AM EST PHQ-2 Depression Total Score: 2 05/11/19 10:52 AM EST documented as of this encounter Care Teams Mailhouse Operator Relationship Specialty Start Date End Date Adelita Jay CNP [address] [place] [address], 2nd [place] [address] [email or web address] PCP - General Family Medicine 12/29/23 Irvin Mcfadden MD Insurance Assigned Provider Family Medicine 11/25/22 documented as of this encounter Additional Source Comments The information contained in this document represents components of the legal health record. It is not the complete legal health record.[facility]
--- OUTSIDE RECORDS SUMMARY | 2025-03-12 15:37 | XMS_ITS | Encounter Summary ---
Author Organization [facility] Address [address] [place] [address] Care Team Providers Care Radioisotope Technician Name Role Phone Vladislav Duran MD Primary Care Provider [phone] Celeste Kaur MD Primary Care Provider [phone] Kathe Isidro PsyD Unavailable [phone] Encounter Details Date Type Department Care Team (Late st Contact Info) Description 03/30/2016 Scanned Document [facility] Endocrinology [address] [address] Glenroy Rivera MD [address] [place] [address] Social History Tobacco Use Types Packs/Day Years [...] on filedocumented in this encounter Care Teams Radioisotope Technician Relationship Specialty Start Date End Date Vladislav Duran MD [address] [place] [address] [place] [phone] PCP - General Internal Medicine 03/30/16 06/18/24 Celeste Kaur MD [address] [place] [address] [address] [place], [place] [address] PCP - General Internal Medicine 06/22/24 Kathe Isidro PsyD [address] [place] [address] Clinical Psychologist Neuropsychology 02/12/25 documented as of this encounter
--- OUTSIDE RECORDS SUMMARY | 2025-03-12 15:37 | XMS_ITS | Encounter Summary ---
Author Organization [facility] Address [address] [place] [address] Care Team Providers Care Vascular Technologist Name Role Phone Vladislav Duran MD Primary Care Provider [phone] Celeste Kaur MD Primary Care Provider [phone] Kathe Isidro PsyD Unavailable [phone] Encounter Details Date Type Department Care Team (Late st Contact Info) Description 12/05/2014 Scanned Document [address] [facility] [address] [place] [address] Provider, Generic Social History Tobacco Use [...] on filedocumented in this encounter Care Teams Vascular Technologist Relationship Specialty Start Date End Date Vladislav Duran MD [address] [place] [address] [address] [place] [phone] PCP - General Internal Medicine 03/30/16 06/18/24 Celeste Kaur MD [address] [place] [address] Dr [address] [place] [address] PCP - General Internal Medicine 06/22/24 Kathe Isidro PsyD [address] [place] [address] Clinical Psychologist Neuropsychology 02/12/25 documented as of this encounter
--- OUTSIDE RECORDS SUMMARY | 2025-03-12 15:37 | XMS_ITS | Clinical Summary ---
Author Organization [facility] Address [address] [place] [address] Care Team Providers Care Polysilicon Preparation Worker Name Role Phone Vladislav Duran MD Primary Care Provider [phone] Social History Tobacco Use Types Packs/Day Years [...] Depression Screening 04/19/2024 COVID-19 Vaccine (1 - 2024-2 6 season) 2024 Influenza Vaccine (#1) 2024 RSV [...] age to complete this topic Care Teams Polysilicon Preparation Worker Relationship Specialty Start Date End Date Vladislav Duran MD [address] [place] [address] PCP - General Internal Medicine 01/22/16
--- OUTSIDE RECORDS SUMMARY | 2025-03-12 15:37 | XMS_ITS | Encounter Summary ---
Author Organization [facility] Address [address] [place] [address] Care Team Providers Care Miller Kiln Dried Salt Name Role Phone Vladislav Duran MD Primary Care Provider [phone] Celeste Kaur MD Primary Care Provider [phone] Kathe Isidro PsyD Unavailable [phone] Encounter Details Date Type Department Care Team (Late st Contact Info) Description 10/07/2016 Scanned Document [address] [address] Provider, Generic Social History Tobacco Use [...] on filedocumented in this encounter Care Teams Miller Kiln Dried Salt Relationship Specialty Start Date End Date Vladislav Duran MD [address] [facility] [address] [place] [phone] PCP - General Internal Medicine 03/30/16 06/18/24 Celeste Kaur MD [address] [place] [address] [address] [address] PCP - General Internal Medicine 06/22/24 Kathe Isidro PsyD [address] [place] [address] Clinical Psychologist Neuropsychology 02/12/25 documented as of this encounter
--- OUTSIDE RECORDS SUMMARY | 2025-03-12 15:37 | XMS_ITS | Encounter Summary ---
Author Organization [facility] Address [address] [facility] [address] [place] [address] Phone Care Team Providers Care Refining Supervisor Name Role Phone Irvin Mcfadden MD Unavailable [phone] Adelita Jay [facility] Primary Care Provid er Encounter Details Date Type Department Care Team (Late st Contact Info) Description 05/24/2024 Procedure Pass OR Admitting Dept - Virtual Department [address] [place] [address] Social History Tobacco Use Types Packs/Day Years [...] high school, GED, job training, learning the Grenadian language, technical skills, or developing parenting skills)? [...] EDT Office Visit [facility] [address] [place] [address] [place] [address] Adelita Jay, MOLLY 170 [facility], 2nd Floor [place] [address] [email or web address] documented as of this encounter Visit Diagnoses Not on filedocumented in this encounter Additional Health Concerns Assessment Noted Time PHQ-9 Depression Total Score: 5 05/11/19 10:52 AM EST PHQ-2 Depression Total Score: 2 05/11/19 10:52 AM EST documented as of this encounter Care Teams Refining Supervisor Relationship Specialty Start Date End Date Adelita Jay CNP [address] [place] [address], 2nd [place] [address] [email or web address] PCP - General Family Medicine 12/29/23 Irvin Mcfadden MD Insurance Assigned Provider Family Medicine 11/25/22 documented as of this encounter Additional Source Comments The information contained in this document represents components of the legal health record. It is not the complete legal health record.[facility]
--- OUTSIDE RECORDS SUMMARY | 2025-03-12 15:37 | XMS_ITS | Clinical Summary ---
Author Organization [facility] Address [address] [place] [address] Care Team Providers Care Mechanical Engineer Name Role Phone Janis Parr Primary Care Provider [phone] Allergies Active Allergy Reactions Criticality Noted Date [...] Pap Smear Discontinued Zoster (Zostavax) Discontinued Insurance [facility] HMO/HMO ADVANTAGE EYEMED ACCESS Care Teams Mechanical Engineer Relationship Specialty Start Date End Date Janis Parr [facility] [address] [place] [address] PCP - General 05/29/14
--- OUTSIDE RECORDS SUMMARY | 2025-03-12 15:37 | XMS_ITS | Encounter Summary ---
Author Organization [facility] Address [address] [facility] [address] [place] [address] Phone Care Team Providers Care Applied Technologist Name Role Phone Irvin Mcfadden MD Unavailable [phone] Adelita Jay PROGRAMMER Primary Care Provid er Reason for Visit * Reason Comments Medication Refill Encounter Details Date Type Department Care Team (Late st Contact Info) Description 03/06/2025 Refill [facility] [address] [place] [address] Adelita Jay, MOLLY 170 [facility], 2nd [place] [address] [email or web address] Medication Refill Social History Tobacco Use Types [...] high school, GED, job training, learning the Guamanian language, technical skills, or developing parenting skills)? [...] of this encounter Progress Notes * Rigo Antonio, GASTON - 03/06/2025 9:37 AM EST Rx Care Gap Status - Instructions for Clinical Staff (prescriber discretion applies): > Mismatch review guide > N/a - No action needed Visit Info Last visit: 12/29/2024 Adelita Jay CNP - [facility] > Requested f/u: Return in about 1 year (around 12/29/2025) for Annual physical. Upcoming visit: 01/04/2026 Adelita Jay CNP - Family [facility] ACTIONS TAKEN BY Rigo Antonio CMA - Criteria met. Antidepressant / Anxiolytics (Non-Benzodiazepine) Rx Protocol - escitalopram oxalate Criteria met; renew for up to 12 months. Visit in the past 14 months: Yes documented in this encounter Plan of Treatment Upcoming Encounters Date Type Department Care Team (Late st Contact Info) Description 01/04/2026 8:00 AM EDT Office Visit [facility] [address] [place], [place] [address] [place] [address] Adelita Jay CNP 170 [facility], [address] [place] [address] [email or web address] documented as of this encounter Visit Diagnoses Diagnosis Generalized anxiety disorder documented in this encounter Additional Health Concerns Assessment Noted Time PHQ-9 Depression Total Score: 5 05/11/19 25 10:52 AM EST PHQ-2 Depression Total Score: 0 12/30/19 7:54 AM EDT documented as of this encounter Care Teams Applied Technologist Relationship Specialty Start Date End Date Adelita Jay CNP [address] [address] PCP - General Family Medicine 12/29/23 Irvin Mcfadden MD [email or web address] Insurance Assigned Provider Family Medicine 11/25/22 documented as of this encounter Additional Source Comments The information contained in this document represents components of the legal health record. It is not the complete legal health record.[facility]
--- OUTSIDE RECORDS SUMMARY | 2025-03-12 15:37 | XMS_ITS | Encounter Summary ---
Author Organization [facility] Address [address] [facility] [address] [place] [address] Phone Care Team Providers Care Auto Damage Estimator Name Role Phone Irvin Mcfadden MD Unavailable [phone] Adelita Jay [facility] Primary Care Provid er Encounter Details Date Type Department Care Team (Late st Contact Info) Description 04/03/2024 Prep for Surgery [facility] Orthopedics & Sports Medicine [address] [place] [address] Nannette Romero MD [address] [place] [address] Orthopedics & Sports Medicine, [place] [address] [email or web address] Social History Tobacco Use Types Packs/Day Years [...] high school, GED, job training, learning the Australian language, technical skills, or developing parenting skills)? [...] is your housing situation today? I have jarivs sing 12/29/2023 How many times have you [...] EDT Office Visit [facility] [address] [place] [address] Dr [place] [address] Adelita Jay CNP [address] [place] [address], [address] [place] [address] [email or web address] documented as of this encounter Visit Diagnoses Not on filedocumented in this encounter Additional Health Concerns Assessment Noted Time PHQ-9 Depression Total Score: 10 024 8:47 AM EDT PHQ-2 Depression Total Score: 4 12/29/19 24 8:47 AM EDT documented as of this encounter Care Teams Auto Damage Estimator Relationship Specialty Start Date End Date Adelita Jay CNP [address] [place], [place] [address] [address] PCP - General Family Medicine 12/29/23 Irvin Mcfadden MD Insurance Assigned Provider Family Medicine 11/25/22 documented as of this encounter Additional Source Comments The information contained in this document represents components of the legal health record. It is not the complete legal health record.[facility]
--- OUTSIDE RECORDS SUMMARY | 2025-03-12 15:37 | XMS_ITS | Encounter Summary ---
Author Organization [facility] Address [address] [place] [address] Care Team Providers Care Pig Handler Name Role Phone Vladislav Duran MD Primary Care Provider [phone] Celeste Kaur MD Primary Care Provider [phone] Kathe Isidro PsyD Unavailable [phone] Encounter Details Date Type Department Care Team (Late st Contact Info) Description 01/22/2015 Scanned Document [address] [facility] [address] [place] [phone] Provider, Generic Social History Tobacco Use [...] by an unspecified provider. us Generic Provider [facility] HX PATH PROCEDURES Final Re sult documented in this encounter Visit Diagnoses Not on filedocumented in this encounter Care Teams Pig Handler Relationship Specialty Start Date End Date Vladislav Duran MD [address] [place] [address] [address] [place] [address] PCP - General Internal Medicine 03/30/16 06/18/24 Celeste Kaur MD [address] [place] [address] [address] [address] PCP - General Internal Medicine 06/22/24 Kathe Isidro PsyD [address] [place] [address] Clinical Psychologist Neuropsychology 02/12/25 documented as of this encounter
--- OUTSIDE RECORDS SUMMARY | 2025-03-12 15:37 | XMS_ITS | Encounter Summary ---
Author Organization [facility] Address [address] [place] [address] Care Team Providers Care Fur Joiner Name Role Phone Vladislav Duran MD Primary Care Provider Celeste Kaur MD Primary Care Provider [phone] Kathe Isidro PsyD Unavailable [phone] Encounter Details Date Type Department Care Team (Late st Contact Info) Description 05/11/2017 Scanned Document [facility] [address] [place] [phone] Roni Dugan MD [address] [place] [id number] Social History Tobacco Use Types Packs/Day Years [...] on filedocumented in this encounter Care Teams Fur Joiner Relationship Specialty Start Date End Date Vladislav Duran MD [address] [facility] [address] [place] [address] PCP - General Internal Medicine 03/30/16 06/18/24 Celeste Kaur MD [address] [place] [address] [address] [place] [address] PCP - General Internal Medicine 06/22/24 Kathe Isidro PsyD [address] [place] [address] Clinical Psychologist Neuropsychology 02/12/25 documented as of this encounter
== END 2025-03-12 11:45 | disposition home or self-care (01) ==
LOC: HO.10HDL 11:44
PROVIDERS: Visit Provider Internal Medicine Endocrinology, Diabetes & Metabolism
DX: C73 Malignant neoplasm of thyroid gland (principal)
CPT/HCPCS: 36415; 84439; 84443